=== PATIENT | male | born 1975 | race Caucasian/White ===

== ENCOUNTER → 2019-12-03 14:30 | Outpatient (BNVA) | payer MEDICAID, SELFPAY | PROVIDERS: Family Provider Family Medicine; PCP Family Medicine; Visit Provider Anesthesiology | DX: M51.36 Other intervertebral disc degeneration, lumbar region (principal); M79.651 Pain in right thigh; M79.652 Pain in left thigh; M79.7 Fibromyalgia; F17.210 Nicotine dependence, cigarettes, uncomplicated; Z79.891 Long term (current) use of opiate analgesic | CPT/HCPCS: 99214 ==

== ENCOUNTER 2020-01-01 11:50 | Outpatient (CLI) | payer MEDICAID, SELFPAY ==
--- NOTE | 2020-01-01 11:55 | XR_ITS ---
WS: [id number] XR chest 2V* [id number] REASON FOR EXAM: Chronic cough FINDINGS: Comparisons were made to August 22, 2015. The lung rose are well aerated. No pneumonia, pleural effusion, pulmonary edema, or mass effect. The heart and mediastinal interfaces are normal. The hilum and apices are normal. No osseous abnormalities. XR/XR chest 2V* [id number] IMPRESSION: Negative chest for active cardiopulmonary changes.
== END 2020-01-01 11:51 | disposition home or self-care (01) ==
LOC: RAD 11:53
PROVIDERS: Family Provider Family Medicine; PCP Family Medicine; Visit Provider Family Medicine
DX: R05 Cough (principal); F17.200 Nicotine dependence, unspecified, uncomplicated; R60.9 Edema, unspecified
CPT/HCPCS: 71046

== ENCOUNTER → 2020-01-29 13:39 | Outpatient (BNVA) | payer MEDICAID, SELFPAY | PROVIDERS: Family Provider Family Medicine; PCP Family Medicine; Visit Provider Nurse Practitioner | DX: M51.36 Other intervertebral disc degeneration, lumbar region (principal); M79.7 Fibromyalgia; F17.219 Nicotine dependence, cigarettes, with unspecified nicotine-induced disorders; Z79.891 Long term (current) use of opiate analgesic; Z71.6 Tobacco abuse counseling | CPT/HCPCS: 99213; 99214 ==

== ENCOUNTER → 2020-04-17 12:49 | Outpatient (BNVA) | payer MEDICAID, SELFPAY | PROVIDERS: Family Provider Family Medicine; PCP Family Medicine; Visit Provider Anesthesiology | DX: M51.36 Other intervertebral disc degeneration, lumbar region (principal); M54.9 Dorsalgia, unspecified; M79.7 Fibromyalgia; F17.219 Nicotine dependence, cigarettes, with unspecified nicotine-induced disorders; Z79.891 Long term (current) use of opiate analgesic | CPT/HCPCS: 99213; 99214 ==

== ENCOUNTER → 2020-06-16 13:01 | Outpatient (BNVA) | payer MEDICAID, SELFPAY | PROVIDERS: Family Provider Family Medicine; PCP Family Medicine; Visit Provider Anesthesiology | DX: M54.42 Lumbago with sciatica, left side (principal); M54.41 Lumbago with sciatica, right side; M51.36 Other intervertebral disc degeneration, lumbar region; M54.9 Dorsalgia, unspecified; M79.7 Fibromyalgia; F17.219 Nicotine dependence, cigarettes, with unspecified nicotine-induced disorders; Z79.891 Long term (current) use of opiate analgesic | CPT/HCPCS: 99213; 99214 ==

== ENCOUNTER → 2020-08-13 14:03 | Outpatient (BNVA) | payer MEDICAID, SELFPAY | PROVIDERS: Family Provider Family Medicine; PCP Family Medicine; Visit Provider Anesthesiology | DX: M54.41 Lumbago with sciatica, right side (principal); M54.42 Lumbago with sciatica, left side; M51.36 Other intervertebral disc degeneration, lumbar region; M79.7 Fibromyalgia; M54.9 Dorsalgia, unspecified; F17.219 Nicotine dependence, cigarettes, with unspecified nicotine-induced disorders; Z79.891 Long term (current) use of opiate analgesic | CPT/HCPCS: 99213; 99214 ==

== ENCOUNTER → 2020-10-13 12:58 | Outpatient (BNVA) | payer MEDICAID, SELFPAY | PROVIDERS: Family Provider Family Medicine; PCP Family Medicine; Visit Provider Anesthesiology | DX: M51.36 Other intervertebral disc degeneration, lumbar region (principal); M79.7 Fibromyalgia; M54.9 Dorsalgia, unspecified; F17.219 Nicotine dependence, cigarettes, with unspecified nicotine-induced disorders; Z79.891 Long term (current) use of opiate analgesic | CPT/HCPCS: 99213; 99214 ==

== ENCOUNTER → 2020-12-09 12:38 | Outpatient (BNVA) | payer MEDICAID, SELFPAY | PROVIDERS: Family Provider Family Medicine; PCP Family Medicine; Visit Provider Anesthesiology | DX: G89.29 Other chronic pain (principal); M51.36 Other intervertebral disc degeneration, lumbar region; M54.9 Dorsalgia, unspecified; M79.7 Fibromyalgia; M25.512 Pain in left shoulder; F17.219 Nicotine dependence, cigarettes, with unspecified nicotine-induced disorders; Z79.891 Long term (current) use of opiate analgesic | CPT/HCPCS: 99214 ==

== ENCOUNTER → 2021-02-11 12:44 | Outpatient (BNVA) | payer MEDICAID, SELFPAY | PROVIDERS: Family Provider Family Medicine; PCP Family Medicine; Visit Provider Anesthesiology | DX: G89.29 Other chronic pain (principal); M51.36 Other intervertebral disc degeneration, lumbar region; M79.7 Fibromyalgia; M54.9 Dorsalgia, unspecified; M54.2 Cervicalgia; M25.512 Pain in left shoulder; M25.511 Pain in right shoulder; F17.219 Nicotine dependence, cigarettes, with unspecified nicotine-induced disorders; Z79.891 Long term (current) use of opiate analgesic | CPT/HCPCS: 99214 ==

== ENCOUNTER → 2021-04-13 13:13 | Outpatient (BNVA) | payer MEDICAID, SELFPAY | PROVIDERS: Family Provider Family Medicine; PCP Family Medicine; Visit Provider Nurse Practitioner | DX: G89.29 Other chronic pain (principal); M51.36 Other intervertebral disc degeneration, lumbar region; M54.9 Dorsalgia, unspecified; M79.7 Fibromyalgia; M54.2 Cervicalgia; M25.512 Pain in left shoulder; F17.219 Nicotine dependence, cigarettes, with unspecified nicotine-induced disorders; Z79.891 Long term (current) use of opiate analgesic | CPT/HCPCS: 99213 ==

== ENCOUNTER → 2021-06-24 14:00 | Outpatient (BNVA) | payer MEDICAID, SELFPAY | PROVIDERS: Family Provider Family Medicine; PCP Family Medicine; Visit Provider Anesthesiology | DX: G89.29 Other chronic pain (principal); M51.36 Other intervertebral disc degeneration, lumbar region; M79.7 Fibromyalgia; M54.2 Cervicalgia; M25.511 Pain in right shoulder; M25.512 Pain in left shoulder; F17.219 Nicotine dependence, cigarettes, with unspecified nicotine-induced disorders; Z79.891 Long term (current) use of opiate analgesic | CPT/HCPCS: 99214 ==

== ENCOUNTER → 2021-08-27 13:01 | Outpatient (BNVA) | payer MEDICAID, SELFPAY | PROVIDERS: Family Provider Family Medicine; PCP Family Medicine; Visit Provider Anesthesiology | DX: G89.29 Other chronic pain (principal); M51.36 Other intervertebral disc degeneration, lumbar region; M54.2 Cervicalgia; M79.7 Fibromyalgia; F17.219 Nicotine dependence, cigarettes, with unspecified nicotine-induced disorders; Z79.891 Long term (current) use of opiate analgesic; Z71.6 Tobacco abuse counseling | CPT/HCPCS: 99214 ==

== ENCOUNTER → 2021-10-25 09:13 | Outpatient (BNVA) | payer MEDICAID, SELFPAY | PROVIDERS: Family Provider Family Medicine; PCP Family Medicine; Visit Provider Family Medicine | DX: B35.6 Tinea cruris (principal); G89.29 Other chronic pain; L30.9 Dermatitis, unspecified; M25.512 Pain in left shoulder; M51.36 Other intervertebral disc degeneration, lumbar region; M54.2 Cervicalgia; M79.7 Fibromyalgia; Z76.89 Persons encountering health services in other specified circumstances; Z79.891 Long term (current) use of opiate analgesic | CPT/HCPCS: 80053; 80061; 84153; 84443; 85025 ==

== ENCOUNTER 2024-09-18 12:03 | Outpatient (CLI) | payer MEDICAID, SELFPAY ==
--- NOTE | 2024-09-18 12:09 | US_ITS ---
WS: [id number] TESTICULAR ULTRASOUND HISTORY: SCROTAL MASS COMPARISON: None available. TECHNIQUE: Real-time and color Doppler imaging or utilized to perform a testicular ultrasound. Right testicle: 4.7 cm x 2.9 cm x 2.7 cm. Normal size and echogenicity. No mass or torsion. Normal color Doppler is present throughout. Systolic and diastolic velocities are both present. No significant hydrocele. Right epididymis: Normal epididymis with no increased vascularity. Left testicle: Prior orchiectomy. There is a prosthetic replacement in the scrotal sac. There is severe diffuse scrotal wall edema and thickening. There is a large amount of air within the scrotal wall. This air measures at least 3.3 x 3.3 cm and e xtends posterior towards the perineum. There is is not a well-defined collection but is infiltrating through the soft tissues with increased vascularity. US/US scrotum [id number] IMPRESSION: 1. Large amount of air infiltrating through the scrotal wall. The exact dimens ion is difficult to determine due to the shadowing. 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 2. Prosthetic LEFT testicle. Prior orchiectomy. Notified Mahad Silvestre MD at 09/18/2024 1:48 PM. I personally discussed the findings with the patient and directed him to the em ergency department. Dr. Alberto was contacted with the information in this repor t.
== END 2024-09-18 12:04 | disposition home or self-care (01) ==
LOC: RAD 12:05
PROVIDERS: PCP Family Medicine; Visit Provider Family Medicine
DX: N49.2 Inflammatory disorders of scrotum (principal); Z96.698 Presence of other orthopedic joint implants; Z90.79 Acquired absence of other genital organ(s)
CPT/HCPCS: 76870

== ENCOUNTER 2024-09-18 13:55 | Emergency (ER) | payer MEDICAID, SELFPAY ==
[2024-09-18 14:03] VITALS: BP 157/89; PULSE 116; RESP 18; TEMP 37.1; O2SAT 96; BMI 30.5
--- NOTE | 2024-09-18 14:05 | PC.PHAR ---
Medication list faxed from [facility]-will follow up with pt as to when last taken
--- NOTE | 2024-09-18 14:09 | CTR_ITS ---
PROCEDURE INFORMATION: Exam: CT Abdomen And Pelvis With Contrast Exam date and time: 09/18/2024 2:49 PM Age: 48 years old Clinical indication: Pain; Other: Scrotal; Additional info: Scrotal pain/concern for nec fasc TECHNIQUE: Imaging protocol: Computed tomography of the abdomen and pelvis with contrast. Radiation optimization: All CT scans at this facility use at least one of these dose optimization techniques: automated exposure control; mA and/or kV adjustment per patient size (includes targeted exams where dose is matched to clinical indication); or iterative reconstruction. Contrast material: OMNI 350; Contrast volume: 100 ml; Contrast route: INTRAVENOUS (IV); COMPARISON: US scrotum [id number] 09/18/2024 1:19 PM RADIATION DOSE METRICS: Total DLP (mGy-cm): 1066.33 FINDINGS: Lungs: Lung bases are clear. No pleural effusion. Liver: Normal. No mass. Gallbladder and biliary ducts: Normal. No calcified stones. No ductal dilation. Pancreas: Normal. No ductal dilation. Spleen: Normal. No splenomegaly. Adrenal glands: Normal. No mass. Kidneys and ureters: Normal. No hydronephrosis. Stomach and bowel: Unremarkable. No obstruction. No mucosal thickening. Appendix: No evidence of appendicitis. Intraperitoneal space: Unremarkable. No free air. No significant fluid collection. Vasculature: Unremarkable. No abdominal aortic aneurysm. Lymph nodes: Reactive adenopathy is noted in both inguinal regions. Urinary bladder: Unremarkable as visualized. Reproductive: There is severe edema involving the scrotum and a collection of soft tissue air measuring 3 cm in diameter is noted within the base of the scrotum. Bones/joints: Unremarkable. No acute fracture. Soft tissues: Unremarkable. CT/CT abdomen pelvis w con* [id number] IMPRESSION: Severe scrotal edema with soft tissue air highly suspicious for necrotizing fasciitis
--- NOTE | 2024-09-18 14:33 | ED_ITS ---
Documented by User: DOMINIQUE Kaufman 09/18/24 15:56 HPI - Male Genitourinary 2 General: Chief complaint: Urogenital-Male Stated complaint: [place] from [place] - infection Time Seen by Provider: 09/18/24 13:59 Source: patient Mode of arrival: ambulatory Limitations: no limitations History of Present Illness: Patient is a 48-year-old male with recently diagnosed diabetes who presents to the emergency department for scrotal pain for the past day or so. On Monday he was diagnosed with diabetes, saw primary care at [facility] and labs showed elevated blood glucose greater than 300 and an A1c of 14. He was started on metformin, states he has not picked this up yet and has not started medications. He takes Percocet for pain. He notes that the pain is to the right scrotum and is associated with swelling. 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 Primary care had sent him to ultrasound here at the hospital, and subsequently referred him to the ER because they were concerned that it looked infected. He is denying any fever, chills, chest pain, nausea vomiting diarrhea, or other symptoms. He is afebrile at this time, but heart rate is elevated at 116. No other pertinent past medical history or symptoms to report at this time, however he is noting the pain is severe with palpation. He is also reporting the pain extends to the bilateral lower abdominal quadrants. MD Complaint: testicle pain and testicle swelling Onset (ago): day(s) Duration: constant Location: right testicle Context: other (Recently diagnosed with diabetes) Associated symptoms: Deny dysuria, hematuria, nausea or vomiting Related Data Home Medications Medication Instructions Recorded Confirmed ascorbic acid (vitamin C) 500 mg 500 mg PO DAILY 04/13/21 09/18/24 capsule cholecalciferol (vitamin D3) 125 125 mcg PO DAILY 04/13/21 09/18/24 mcg (5,000 unit) capsule aspirin 81 mg tablet,delayed 81 mg PO DAILY 09/18/24 09/18/24 release (Adult Low Dose Aspirin) atorvastatin 20 mg tablet 20 mg PO BEDTIME 09/18/24 09/18/24 dulaglutide 0.75 mg/0.5 mL 0.75 mg SUBCUT Q7D 09/18/24 09/18/24 subcutaneous pen injector ([facility]) lisinopril 5 mg tablet 5 mg PO DAILY 09/18/24 09/18/24 metformin 500 mg tablet,extended 500 mg PO BID 09/18/24 09/18/24 release 24 hr multivitamin 1 tab PO QAM 09/18/24 09/18/24 oxycodone-acetaminophen 7.5 mg-325 1 tab PO Q4H PRN pain 09/18/24 09/18/24 mg tablet tramadol 50 mg tablet 50 mg PO Q4H PRN pain 09/18/24 09/18/24 Allergies Allergy/AdvReac Type Severity Reaction Status Date / Time adhesive tape Allergy Unknown Verified 09/18/24 14:05 celecoxib [From Celebrex] Allergy Unknown Verified 09/18/24 14:05 doxycycline Allergy Unknown Verified 09/18/24 14:05 ibuprofen Allergy Unknown Verified 09/18/24 14:05 levofloxacin [From Levaquin] Allergy Unknown Verified 09/18/24 14:05 methadone Allergy ALGY-Anaphy Verified 09/18/24 14:05 laxis milnacipran [From Savella] Allergy Unknown Verified 09/18/24 14:05 morphine Allergy Unknown Verified 09/18/24 14:05 Penicillins Allergy unknown Verified 09/18/24 14:05 Sulfa (Sulfonamide Allergy ALGY-Rash Verified 09/18/24 14:05 Antibiotics) terbinafine [From Lamisil] Allergy Unknown Verified 09/18/24 14:05 trazodone Allergy Unknown Verified 09/18/24 14:05 Review of Systems 2 General: Reports: 10 or more systems reviewed and unremarkable except in HPI and below Const: Denies: fever(s), chills, change in appetite, change in weight or diaphoresis ENMT: Denies: throat pain or hoarseness Card: Denies: chest pain, palpitations or lightheadedness Resp: Denies: dyspnea, productive cough or wheezing GI: Reports: abdominal pain; Denies: nausea, vomiting, diarrhea, constipation, bloating, change in stool character or hematochezia : Reports: testicular pain and scrotal swelling; Denies: flank pain, difficulty urinating, dysuria, urinary frequency, urinary urgency or hematuria Musc: Denies: neck pain or back pain Skin/Breast: Denies: rash or new lesions Neuro: Denies: headache(s) or dizziness PFSH ED 2 PFSH: Medical History Chronic neck pain Chronic left shoulder pain Anxiety and depression Opioid contract exists Encounter for long-term use of opiate analgesic Fibromyalgia DDD (degenerative disc disease), lumbar Pain of paraspinal muscle Surgical History Status post laser lithotripsy of ureteral calculus Social History Smoking and tobacco/nicotine status: current every day tobacco/nicotine user cigarettes Packs smoked per day: 1.5 Alcohol intake: never Substance/Drug Use: never Physical Exam 2 Const: COMMON NORMALS: no acute distress, average body habitus, patient oriented x3, no limitations, healthy appearing, alert and well nourished G ENERAL APPEARANCE: cooperative and comfortable ORIENTATION/CONSCIOUSNESS: Yes awake HENMT: COMMON NORMALS: normocephalic, atraumatic, hearing grossly normal bilaterally, external ears normal, Normal external nose present, Normal nasal mucous membranes and turbinates present and moist oral mucous membranes HEAD & SCALP: normocephalic and atraumatic NOSE: Normal external nose present and Normal nasal mucous membranes and turbinates present EXTERNAL EAR: Yes external ears normal Eye: COMMON NORMALS: Equal, round and reactive pupils present, EOMs intact bilaterally, conjunctivae normal and normal visual rose by confrontation C ONJUNCTIVA: Yes conjunctivae normal PUPIL: Yes Equal, round and reactive pupils present Neck/C-Spine: COMMON NORMALS: full ROM, supple, no meningeal signs and no JVD Resp: COMMON NORMALS: normal respiratory effort, No retractions, No use of accessory muscles and clear to auscultation bilaterally AUSCULTATION: clear to auscultation bilaterally, no crackles, no rales, no rhonchi and no wheezes Cardio: COMMON NORMALS: no JVD, regular rate, regular rhythm, S1 normal heart sound present, S2 normal heart sound present, No gallops present (Cardio), No clicks present (Cardio), No murmurs present (Cardio), No rub (Cardio) and Peripheral pulses 2+ throughout RATE: regular rate RHYTHM: regular rhythm HEART SOUNDS: S1 normal heart sound present and S2 normal heart sound present PERIPHERAL PULSES: Peripheral pulses 2+ throughout GI: COMMON NORMALS: Normal to inspection, nondistended, normoactive bowel sounds present, Soft to palpation, No hepatosplenomegaly present and no masses AUSCULTATION: Yes normoactive bowel sounds PALPATION: Yes Soft to palpation, No Guarding due to palpation present (GI), No Rigid due to palpation and Yes No hepatosplenomegaly present RECTAL EXAM: Yes deferred OTHER: Tenderness to palpation of the bilateral lower quadrants, left worse than right : OTHER: Scrotum is swollen and erythematous, there is severe reproducible tenderness to palpation of the right testicle. No skin breakdown, no foul odor detected at this time. Penis normal appearing. Perineum appears normal Extremity: COMMON NORMALS: normal to inspection and full ROM Neuro: COMMON NORMALS: patient oriented x3, moves all extremities, no focal motor deficits and no sensory deficits noted SENSORIUM/ORIENTATION: Yes alert MENINGEAL SIGNS: Yes no meningeal signs Psych: COMMON NORMALS: mental status grossly normal, cooperative and speech normal SPEECH: Yes normal speech Skin: COMMON NORMALS: no rashes or lesions noted GENERAL SKIN EXAM: no rashes or lesions noted Course 2 Vital Signs: Vital signs: Vital Signs Temperature 98.7 F 09/18/24 14:03 Pulse Rate 116 H 09/18/24 14:03 Respiratory Rate 18 09/18/24 14:03 Blood Pressure 157/89 09/18/24 14:03 Pulse Oximetry 96 09/18/24 14:03 Oxygen Delivery Me thod Room Air 09/18/24 14:03 [facility] - Male Medical Decision Making Patient was sent to the ER from ultrasound with concerns of necrotizing fasciitis as he was recently diagnosed with diabetes on Monday with primary care. He has not started any diabetic medications yet as he has not picked them up, states his A1c was 14 and his sugar at that time was recorded to be greater than 300. Here in the emergency department, exam found his scrotum to be erythematous and swollen, with moderate to severe tenderness to palpation primarily to the right aspect. However there were no concerning overlying skin changes or foul odor concerning for necrotizing fasciitis. With labs he did have an elevated white count and blood glucose was measuring 600 and was started on IV push of insulin. He was also started on vancomycin after lactic found to be elevated, elevated white count, and CT findings concerning for necrotizing fasciitis with the scrotal edema and soft tissue air present. Patient has remained comfortable throughout ED course, he takes Percocet for pain and took this upon arrival. His pulse had been slightly elevated, however he was afebrile here and had no symptoms to report that were concerning for any systemic signs of infection. Care of patient at this time was transferred to Dr. Alberto, who was consulting [facility] urology for emergent transfer. Lab Data 09/18/24 14:20 09/18/24 14:20 Radiology Impressions Abdomen/Pelvis CT 09/18/24 14:09 IMPRESSION: Severe scrotal edema with soft tissue air highly suspicious for necrotizing fasciitis Laboratory Results WBC 19.37 10^3/uL (3.29-11.43) H 09/18/24 14:20 RBC 5.19 10^6/uL (3.85-5.65) 09/18/24 14:20 Hgb 16.30 g/dL (11.27-16.99) 09/18/24 14:20 Hct 45.1 % (37-53) 09/18/24 14:20 MCV 86.9 fl (82-101) 09/18/24 14:20 MCH 31.4 pg (27-33) 09/18/24 14:20 MCHC 36.1 g/dL (30-55) 09/18/24 14:20 RDW 11.6 % (12.1-15.1) L 09/18/24 14:20 Plt Count 158 10^3/cmm (157-399) 09/18/24 14:20 MPV 12.2 fL (7.4-10.4) H 09/18/24 14:20 Neut % (Auto) 84.0 % 09/18/24 14:20 Lymph % (Auto) 8.7 % 09/18/24 14:20 [place] % (Auto) 6.3 % 09/18/24 14:20 Eos % (Auto) 0.2 % 09/18/24 14:20 Baso % (Auto) 0.3 % 09/18/24 14:20 Neut # (Auto) 16.27 10^3/uL (1.8-7.7) H 09/18/24 14:20 Lymph # (Auto) 1.7 10^3/uL (0.8-4.8) 09/18/24 14:20 [place] # (Auto) 1.2 10^3/uL (0.2-0.9) H 09/18/24 14:20 Eos # (Auto) 0.0 10^3/uL (0.0-0.8) 09/18/24 14:20 Baso # (Auto) 0.1 10^3/uL (0.0-0.1) 09/18/24 14:20 Nucleated RBC % (auto) 0 % 09/18/24 14:20 Nucleated RBCs # 0.0 /100WBC 09/18/24 14:20 Sodium 133 mmol/L (136-145) L 09/18/24 14:20 Potassium 3.9 mmol/L (3.5-5.1) 09/18/24 14:20 Chloride 96 mmol/L (98-107) L 09/18/24 14:20 Carbon Dioxide 21 mmol/L (22-29) L 09/18/24 14:20 Anion Gap 19.9 (5-19) H 09/18/24 14:20 BUN 5 mg/dL (6-20) L 09/18/24 14:20 Creatinine 0.6 mg/dL (0.7-1.2) L 09/18/24 14:20 GFR Calculation 143.2 mL/min (90-130) H 09/18/24 14:20 Glucose 564 mg/dL (65-115) H* 09/18/24 14:20 POC Glucose 506 mg/dL (70-110) H* 09/18/24 14:36 Calculated Osmolality 299 mOsm/kg (285-295) H 09/18/24 14:20 Lactic Acid 2.5 mmol/L (0.5-2.2) H 09/18/24 14:20 Calcium 9.1 mg/dL (8.5-10.5) 09/18/24 14:20 Total Bilirubin 1.3 mg/dL (0.15-1.2) H 09/18/24 14:20 AST 10 U/L (0-40) 09/18/24 14:20 ALT 11 U/L (0-41) 09/18/24 14:20 Alkaline Phosphatase 199 U/L (40-130) H 09/18/24 14:20 Total Protein 7.1 g/dL (6.6-8.7) 09/18/24 14:20 Albumin 4.2 g/dL (3.5-5.2) 09/18/24 14:20 Globulin 2.9 g/dL (1.3-4.6) 09/18/24 14:20 Urine Color Yellow (Yellow) 09/18/24 14:20 Urine Appearance Clear (CLEAR) 09/18/24 14:20 Urine pH 5.0 (5-7) 09/18/24 14:20 Ur Specific [place] 1.040 (1.005-1.030) H 09/18/24 14:20 Urine Protein Negative (Negative) 09/18/24 14:20 Urine Glucose (UA) 3+ (Normal) H 09/18/24 14:20 Urine Ketones 1+ (Negative) H 09/18/24 14:20 Urine Blood Negative (Negative) 09/18/24 14:20 Urine Nitrate Negative (Negative) 09/18/24 14:20 Urine Bilirubin Negative (Negative) 09/18/24 14:20 Urine Urobilinogen 0.2 mg/dL (Negative) 09/18/24 14:20 Ur Leukocyte Esterase Negative (Negative) 09/18/24 14:20 Urine RBC 0-2 /hpf (0-2) 09/18/24 14:20 Urine WBC 0-5 /hpf (0-5) 09/18/24 14:20 Ur Squamous Epith Cells 0-5 /hpf (0-5) 09/18/24 14:20 Amorphous Sediment Not Reportable 09/18/24 14:20 Urine Bacteria None seen /hpf (NONE) 09/18/24 14:20 Hyaline Casts 0-4 /lpf H 09/18/24 14:20 All radiology interpretation(s) finalized by discharge Discharge Plan Discharge Patient Disposition: Xfer Short-Term Hosp Clinical Impression: Necrotizing fasciitis Condition: Stable Prescriptions: No Action ascorbic acid (vitamin C) 500 mg capsule 500 mg PO DAILY cholecalciferol (vitamin D3) 125 mcg (5,000 unit) capsule 125 mcg PO DAILY multivitamin Tablet 1 tab PO QAM atorvastatin 20 mg tablet 20 mg PO BEDTIME aspirin [Adult Low Dose Aspirin] 81 mg tablet,delayed release (DR/EC) 81 mg PO DAILY lisinopril 5 mg tablet 5 mg PO DAILY metformin 500 mg tablet extended release 24 hr 500 mg PO BID Trulicity 0.75 mg/0.5 mL pen injector 0.75 mg SUBCUT Q7D tramadol 50 mg tablet 50 mg PO Q4H MDD 4 per day PRN (Reason: pain) oxycodone-acetaminophen 7.5-325 mg tablet 1 tab PO Q4H MDD 4 per day PRN (Reason: pain) Referrals: Mahad Silvestre MD [Primary Care Provider] - Coding Level of Care Code ED Can Tender for Chg Fwd Documented by User: Steph Alberto MD 09/18/24 15:59 HPI - Male Genitourinary 2 General: Chief complaint: Urogenital-Male Stated complaint: [place] - infection Time Seen by Provider: 09/18/24 13:59 Related Data Home Medications Medication Instructions Recorded Confirmed ascorbic acid (vitamin C) 500 mg 500 mg PO DAILY 04/13/21 09/18/24 capsule cholecalciferol (vitamin D3) 125 125 mcg PO DAILY 04/13/21 09/18/24 mcg (5,000 unit) capsule aspirin 81 mg tablet,delayed 81 mg PO DAILY 09/18/24 09/18/24 release (Adult Low Dose Aspirin) atorvastatin 20 mg tablet 20 mg PO BEDTIME 09/18/24 09/18/24 dulaglutide 0.75 mg/0.5 mL 0.75 mg SUBCUT Q7D 09/18/24 09/18/24 subcutaneous pen injector (Trulicity) lisinopril 5 mg tablet 5 mg PO DAILY 09/18/24 09/18/24 metformin 500 mg tablet,extended 500 mg PO BID 09/18/24 09/18/24 release 24 hr multivitamin 1 tab PO QAM 09/18/24 09/18/24 oxycodone-acetaminophen 7.5 mg-325 1 tab PO Q4H PRN pain 09/18/24 09/18/24 mg tablet tramadol 50 mg tablet 50 mg PO Q4H PRN pain 09/18/24 09/18/24 Allergies Allergy/AdvReac Type Severity Reaction Status Date / Time adhesive tape Allergy Unknown Verified 09/18/24 14:05 celecoxib [From Celebrex] Allergy Unknown Verified 09/18/24 14:05 doxycycline Allergy Unknown Verified 09/18/24 14:05 ibuprofen Allergy Unknown Verified 09/18/24 14:05 levofloxacin [From Levaquin] Allergy Unknown Verified 09/18/24 14:05 methadone Allergy ALGY-Anaphy Verified 09/18/24 14:05 laxis milnacipran [From Savella] Allergy Unknown Verified 09/18/24 14:05 morphine Allergy Unknown Verified 09/18/24 14:05 Penicillins Allergy unknown Verified 09/18/24 14:05 Sulfa (Sulfonamide Allergy ALGY-Rash Verified 09/18/24 14:05 Antibiotics) terbinafine [From Lamisil] Allergy Unknown Verified 09/18/24 14:05 trazodone Allergy Unknown Verified 09/18/24 14:05 PFSH ED 2 PFSH: Medical History Chronic neck pain Chronic left shoulder pain Anxiety and depression Opioid contract exists Encounter for long-term use of opiate analgesic Fibromyalgia DDD (degenerative disc disease), lumbar Pain of paraspinal muscle Surgical History Status post laser lithotripsy of ureteral calculus Social History Smoking and tobacco/nicotine status: current every day tobacco/nicotine user cigarettes Packs smoked per day: 1.5 Alcohol intake: never Substance/Drug Use: never Course 2 Vital Signs: Vital signs: Vital Signs Temperature 98.7 F 09/18/24 14:03 Pulse Rate 116 H 09/18/24 14:03 Respiratory Rate 18 09/18/24 14:03 Blood Pressure 157/89 09/18/24 14:03 Pulse Oximetry 96 09/18/24 14:03 Oxygen Delivery Me thod Room Air 09/18/24 14:03 MDM - Male Medical Decision Making Patient was sent to the ER from ultrasound with concerns of necrotizing fasciitis as he was recently diagnosed with diabetes on Monday with primary care. He has not started any diabetic medications yet as he has not picked them up, states his A1c was 14 and his sugar at that time was recorded to be greater than 300. Here in the emergency department, exam found his scrotum to be erythematous and swollen, with moderate to severe tenderness to palpation primarily to the right aspect. However there were no concerning overlying skin changes or foul odor concerning for necrotizing fasciitis. With labs he did have an elevated white count and blood glucose was measuring 600 and was started on IV push of insulin. He was also started on vancomycin after lactic found to be elevated, elevated white count, and CT findings concerning for necrotizing fasciitis with the scrotal edema and soft tissue air present. Patient has remained comfortable throughout ED course, he takes Percocet for pain and took this upon arrival. His pulse had been slightly elevated, however he was afebrile here and had no symptoms to report that were concerning for any systemic signs of infection. Care of patient at this time was transferred to Dr. Alberto, who was consulting [facility] urology for emergent transfer. Patient presents here with concerns of excising fasciitis of the scrotum did start antibiotics spoke to urology at [facility] will transfer their ER to ER for further evaluation. Will transfer due to urology availability Lab Data 09/18/24 14:20 09/18/24 14:20 Radiology Impressions Abdomen/Pelvis CT 09/18/24 14:09 IMPRESSION: Severe scrotal edema with soft tissue air highly suspicious for necrotizing fasciitis Laboratory Results WBC 19.37 10^3/uL (3.29-11.43) H 09/18/24 14:20 RBC 5.19 10^6/uL (3.85-5.65) 09/18/24 14:20 Hgb 16.30 g/dL (11.27-16.99) 09/18/24 14:20 Hct 45.1 % (37-53) 09/18/24 14:20 MCV 86.9 fl (82-101) 09/18/24 14:20 MCH 31.4 pg (27-33) 09/18/24 14:20 MCHC 36.1 g/dL (30-55) 09/18/24 14:20 RDW 11.6 % (12.1-15.1) L 09/18/24 14:20 Plt Count 158 10^3/cmm (157-399) 09/18/24 14:20 MPV 12.2 fL (7.4-10.4) H 09/18/24 14:20 Neut % (Auto) 84.0 % 09/18/24 14:20 Lymph % (Auto) 8.7 % 09/18/24 14:20 [place]ulloch % (Auto) 6.3 % 09/18/24 14:20 Eos % (Auto) 0.2 % 09/18/24 14:20 Baso % (Auto) 0.3 % 09/18/24 14:20 Neut # (Auto) 16.27 10^3/uL (1.8-7.7) H 09/18/24 14:20 Lymph # (Auto) 1.7 10^3/uL (0.8-4.8) 09/18/24 14:20 [place]och # (Auto) 1.2 10^3/uL (0.2-0.9) H 09/18/24 14:20 Eos # (Auto) 0.0 10^3/uL (0.0-0.8) 09/18/24 14:20 Baso # (Auto) 0.1 10^3/uL (0.0-0.1) 09/18/24 14:20 Nucleated RBC % (auto) 0 % 09/18/24 14:20 Nucleated RBCs # 0.0 /100WBC 09/18/24 14:20 Sodium 133 mmol/L (136-145) L 09/18/24 14:20 Potassium 3.9 mmol/L (3.5-5.1) 09/18/24 14:20 Chloride 96 mmol/L (98-107) L 09/18/24 14:20 Carbon Dioxide 21 mmol/L (22-29) L 09/18/24 14:20 Anion Gap 19.9 (5-19) H 09/18/24 14:20 BUN 5 mg/dL (6-20) L 09/18/24 14:20 Creatinine 0.6 mg/dL (0.7-1.2) L 09/18/24 14:20 GFR Calculation 143.2 mL/min (90-130) H 09/18/24 14:20 Glucose 564 mg/dL (65-115) H* 09/18/24 14:20 POC Glucose 506 mg/dL (70-110) H* 09/18/24 14:36 Calculated Osmolality 299 mOsm/kg (285-295) H 09/18/24 14:20 Lactic Acid 2.5 mmol/L (0.5-2.2) H 09/18/24 14:20 Calcium 9.1 mg/dL (8.5-10.5) 09/18/24 14:20 Total Bilirubin 1.3 mg/dL (0.15-1.2) H 09/18/24 14:20 AST 10 U/L (0-40) 09/18/24 14:20 ALT 11 U/L (0-41) 09/18/24 14:20 Alkaline Phosphatase 199 U/L (40-130) H 09/18/24 14:20 Total Protein 7.1 g/dL (6.6-8.7) 09/18/24 14:20 Albumin 4.2 g/dL (3.5-5.2) 09/18/24 14:20 Globulin 2.9 g/dL (1.3-4.6) 09/18/24 14:20 Urine Color Yellow (Yellow) 09/18/24 14:20 Urine Appearance Clear (CLEAR) 09/18/24 14:20 Urine pH 5.0 (5-7) 09/18/24 14:20 Ur Specific [place] 1.040 (1.005-1.030) H 09/18/24 14:20 Urine Protein Negative (Negative) 09/18/24 14:20 Urine Glucose (UA) 3+ (Normal) H 09/18/24 14:20 Urine Ketones 1+ (Negative) H 09/18/24 14:20 Urine Blood Negative (Negative) 09/18/24 14:20 Urine Nitrate Negative (Negative) 09/18/24 14:20 Urine Bilirubin Negative (Negative) 09/18/24 14:20 Urine Urobilinogen 0.2 mg/dL (Negative) 09/18/24 14:20 Ur Leukocyte Esterase Negative (Negative) 09/18/24 14:20 Urine RBC 0-2 /hpf (0-2) 09/18/24 14:20 Urine WBC 0-5 /hpf (0-5) 09/18/24 14:20 Ur Squamous Epith Cells 0-5 /hpf (0-5) 09/18/24 14:20 Amorphous Sediment Not Reportable 09/18/24 14:20 Urine Bacteria None seen /hpf (NONE) 09/18/24 14:20 Hyaline Casts 0-4 /lpf H 09/18/24 14:20 Discharge Plan Discharge Patient Disposition: Xfer Short-Term Hosp Clinical Impression: Necrotizing fasciitis Condition: Stable Prescriptions: No Action ascorbic acid (vitamin C) 500 mg capsule 500 mg PO DAILY cholecalciferol (vitamin D3) 125 mcg (5,000 unit) capsule 125 mcg PO DAILY multivitamin Tablet 1 tab PO QAM atorvastatin 20 mg tablet 20 mg PO BEDTIME aspirin [Adult Low Dose Aspirin] 81 mg tablet,delayed release (DR/EC) 81 mg PO DAILY lisinopril 5 mg tablet 5 mg PO DAILY metformin 500 mg tablet extended release 24 hr 500 mg PO BID Trulicity 0.75 mg/0.5 mL pen injector 0.75 mg SUBCUT Q7D tramadol 50 mg tablet 50 mg PO Q4H MDD 4 per day PRN (Reason: pain) oxycodone-acetaminophen 7.5-325 mg tablet 1 tab PO Q4H MDD 4 per day PRN (Reason: pain) Referrals: Mahad Silvestre MD [Primary Care Provider] - Coding Level of Care Code ED Can Tender for Ludwig Waters
[2024-09-18 14:41] LABS: Glucose Point of Care 506 mg/dL (70-110)
[2024-09-18 14:45] LABS: Basophils # 0.1 10^3/uL (0.0-0.1); Basophils % 0.3 %; Eosinophils % 0.2 %; Hematocrit 45.1 % (37-53); Lymphocytes # 1.7 10^3/uL (0.8-4.8); Lymphocytes % 8.7 %; Mean Corpuscular HGB Conc 36.1 g/dL (30-55); Mean Corpuscular Hemoglobin 31.4 pg (27-33); Mean Corpuscular Volume 86.9 fl (82-101); Mean Platelet Volume 12.2 fL (7.4-10.4); Monocytes # 1.2 10^3/uL (0.2-0.9); Monocytes % 6.3 %; Neutrophils # 16.27 10^3/uL (1.8-7.7); Nucleated Red Blood Cells % 0 %; Platelet Count 158 10^3/cmm (157-399); Red Blood Count 5.19 10^6/uL (3.85-5.65); Red Cell Distribution Width 11.6 % (12.1-15.1); White Blood Count 19.37 10^3/uL (3.29-11.43)
[2024-09-18 14:48] LABS: Bilirubin Urine Negative (Negative); Blood Urine Negative (Negative); Glucose Urine UA 3+ (Normal); Ketones Urine 1+ (Negative); Leukocyte Esterase Urine Negative (Negative); Nitrate Urine Negative (Negative); Protein Urine Negative (Negative); Urine Appearance Clear (CLEAR); Urine Color Yellow (Yellow); Urobilinogen Urine 0.2 mg/dL (Negative)
[2024-09-18 14:54] LABS: Add Urine Microscopic? YES; Bacteria Urine None Seen /hpf; Hyaline Casts Urine 0-4 /lpf; RBC Urine 0-2 /hpf (0-2); Squamous Epithelial Cell Urine 0-5 /hpf (0-5); WBC Urine 0-5 /hpf (0-5)
[2024-09-18] MEDS: iohexol 350 mg/mL 500 mL Btl (per mL) IV (14:55)
[2024-09-18 15:00] VITALS: PULSE 104; O2SAT 93
[2024-09-18 15:12] LABS: Alanine Aminotransferase 11 U/L (0-41); Albumin Level 4.2 g/dL (3.5-5.2); Alkaline Phosphatase 199 U/L (40-130); Anion Gap 19.9 (5-19); Aspartate Amino Transferase 10 U/L (0-40); Blood Urea Nitrogen 5 mg/dL (6-20); Calcium 9.1 mg/dL (8.5-10.5); Carbon Dioxide 21 mmol/L (22-29); Chloride 96 mmol/L (98-107); Creatinine Clr Calc Pharmacy 184.0711; Globulin 2.9 g/dL (1.3-4.6); Glomerular Filtration Rate 143.2 mL/min (90-130); Osmolality Calculated 299 mOsm/kg (285-295); Potassium 3.9 mmol/L (3.5-5.1); Sodium 133 mmol/L (136-145); Total Bilirubin 1.3 mg/dL (0.15-1.2); Total Protein 7.1 g/dL (6.6-8.7)
[2024-09-18 15:13] LABS: Glucose 564 mg/dL (65-115); Lactic Sepsis W/Reflex 2.5 mmol/L (0.5-2.2)
[2024-09-18] MEDS: insulin regular-human 100 units/1 mL 15 UNIT IVP (15:16)
[2024-09-18 15:35] VITALS: BP 125/86; PULSE 114; O2SAT 91
[2024-09-18] MEDS: VANCOMYCIN ADD-Vantage 1,000 MG in 0.9% NaCl ADD-Vantage 250 ML 250 MG IV (15:56)
[2024-09-18 16:04] LABS: Glucose Point of Care 375 mg/dL (70-110)
--- NOTE | 2024-09-18 16:23 | PC.NURSE ---
Pt being air evac to [facility] ER to ER transfer. Pt report called to Kay Bustamante RN at 1615.
[2024-09-18 16:27] LABS: Reflex Lactate Order REFLEX LACTIC ORDERD
[2024-09-18 16:56] VITALS: BP 125/85; PULSE 113; O2SAT 91
== END 2024-09-18 16:40 ==
PROVIDERS: Physician Assistant; Emergency Provider Emergency Medicine; PCP Family Medicine
DX: M72.6 Necrotizing fasciitis (principal); Z79.82 Long term (current) use of aspirin; Z79.84 Long term (current) use of oral hypoglycemic drugs; Z79.85 Long-term (current) use of injectable non-insulin antidiabetic drugs; F17.210 Nicotine dependence, cigarettes, uncomplicated
CPT/HCPCS: 36415; 36416; 74177; 80053; 81001; 82962; 83605; 85025; 87040; 96374; 96375; 99285; J1815; J3370; J7050

== ENCOUNTER 2024-10-31 08:50 | Emergency (ER) | payer MEDICAID, SELFPAY ==
[2024-10-31 09:12] VITALS: BP 135/75; PULSE 100; TEMP 36.6; O2SAT 96; BMI 32.0
--- NOTE | 2024-10-31 10:24 | US_ITS ---
WS: [id number] TESTICULAR ULTRASOUND HISTORY: swelling pain, hx of testicle infection COMPARISON: 09/18/2024 CT and ultrasound TECHNIQUE: Real-time and color Doppler imaging or utilized to perform a testicular ultrasound. Right testicle: 4.4 cm x 2.7 cm x 3.3 cm. Heterogeneous testicle with striations throughout. No mass identified. Normal vascularity. Normal color Doppler is present throughout. Systolic and diastolic velocities are both present. No significant hydrocele. Right epididymis: Normal epididymis with no increased vascularity. Left testicle: Prior LEFT orchiectomy. Prosthetic replacement in the scrotal sac. No significant hydrocele identified. Marked scrotal wall thickening on the RIGHT. There is mild increased vascularity but no fluid collect ion. Scrotal wall measures 9 mm. US/US scrotum 12101 IMPRESSION: 1. Mild heterogeneity throughout the RIGHT testicle but no mass. Heterogeneous probably due to prior episodes of infection. Normal vascularity. 2. Prior LEFT orchiectomy with prosthetic testicle replacement. 3. Marked RIGHT scrotal wall thickening but no abscess. Mild increased vascula rity.
--- NOTE | 2024-10-31 10:57 | W.ED.MALEGU ---
HPI - Male Genitourinary General: Chief complaint: Urogenital-Male Stated complaint: abd problems Time Seen by Provider: 10/31/24 10:55 History of Present Illness: 49-year-old male poorly controlled diabetic with a history of necrotizing fasciitis of the scrotum diagnosed on 09/18 status post admission and treatment at [facility]. Patient has a prosthetic left testicle. 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 It has come and gone for the last 4 years. He can feel it again. He does not have any systemic symptoms. Associated symptoms: Deny dysuria, nausea or vomiting Related Data Home Medications Medication Instructions Recorded Confirmed ascorbic acid (vitamin C) 500 mg 500 mg PO DAILY 04/13/21 10/31/24 capsule cholecalciferol (vitamin D3) 125 125 mcg PO DAILY 04/13/21 10/31/24 mcg (5,000 unit) capsule aspirin 81 mg tablet,delayed 81 mg PO DAILY 09/18/24 10/31/24 release (Adult Low Dose Aspirin) atorvastatin 20 mg tablet 20 mg PO BEDTIME 09/18/24 10/31/24 dulaglutide 0.75 mg/0.5 mL 0.75 mg SUBCUT Q7D 09/18/24 10/31/24 subcutaneous pen injector (Trulicity) lisinopril 5 mg tablet 5 mg PO DAILY 09/18/24 10/31/24 multivitamin 1 tab PO QAM 09/18/24 10/31/24 oxycodone-acetaminophen 7.5 mg-325 1 tab PO Q4H PRN pain 09/18/24 10/31/24 mg tablet tramadol 50 mg tablet 50 mg PO Q4H PRN pain 09/18/24 10/31/24 Previous Rx's Medication Instructions Recorded clindamycin HCl 150 mg capsule 150 mg PO Q8H 7 days #21 caps 10/31/24 (Cleocin HCl) empagliflozin 10 mg tablet 10 mg PO DAILY #30 tabs 10/31/24 lactobacillus combination no.9 4 4,000 mmu cells PO DAILY 90 days 10/31/24 billion cell capsule (Adult 50 #90 caps Plus Probiotic) Allergies Allergy/AdvReac Type Severity Reaction Status Date / Time adhesive tape Allergy Unknown Verified 10/31/24 09:20 celecoxib [From Celebrex] Allergy Unknown Verified 10/31/24 09:20 doxycycline Allergy Unknown Verified 10/31/24 09:20 ibuprofen Allergy Unknown Verified 10/31/24 09:20 levofloxacin [From Levaquin] Allergy Unknown Verified 10/31/24 09:20 methadone Allergy ALGY-Anaphy Verified 10/31/24 09:20 laxis milnacipran [From Savella] Allergy Unknown Verified 10/31/24 09:20 morphine Allergy Unknown Verified 10/31/24 09:20 Penicillins Allergy unknown Verified 10/31/24 09:20 rofecoxib [From Vioxx] Allergy Unconscious Verified 10/31/24 09:20 Sulfa (Sulfonamide Allergy ALGY-Rash Verified 10/31/24 09:20 Antibiotics) terbinafine [From Lamisil] Allergy Unknown Verified 10/31/24 09:20 trazodone Allergy Unknown Verified 10/31/24 09:20 Review of Systems General: Reports: 10 or more systems reviewed and unremarkable except in HPI and below Const: Denies: fever(s), chills or body aches Eyes: Denies: change in vision ENMT: Denies: throat pain Card: Denies: chest pain, edema or syncope Resp: Denies: dyspnea or productive cough GI: Denies: abdominal pain, nausea, vomiting or diarrhea : Denies: flank pain, dysuria or urinary frequency Musc: Denies: neck pain, back pain, extremity pain or extremity swelling Skin/Breast: Denies: rash or erythema Neuro: Denies: headache(s), numbness in extremities, weakness in extremities, lack of coordination or difficulty walking PFSH ED PFSH: Medical History Chronic neck pain Chronic left shoulder pain Anxiety and depression Opioid contract exists Encounter for long-term use of opiate analgesic Fibromyalgia DDD (degenerative disc disease), lumbar Pain of paraspinal muscle Surgical History Status post laser lithotripsy of ureteral calculus Social History Smoking and tobacco/nicotine status: current every day tobacco/nicotine user cigarettes Packs smoked per day: 1.5 Alcohol intake: never Substance/Drug Use: never Physical Exam Narrative: EXAM NARRATIVE: Patient has 2 dime size masses on his right scrotum. Both of them are pretty proximal. The more proximal has intact skin and is firm and rubbery. The second is slightly tender and has a small skin opening and is discharging a serosanguineous discharge. The scrotal wall is slightly thicker than average although it is not tender, warm, or red. There is a significant amount of fat overlying the pubic bone but I do not feel any other masses, adenopathy or hernias. There is no crepitus or signs of necrotizing fasciitis today. The right testicle was not tender. The left testicle is artificial. No perineal findings. Const: COMMON NORMALS: no limitations, alert and well nourished EXAM LIMITATIONS: no altered mental status HENMT: COMMON NORMALS: normocephalic, atraumatic and external ears normal HEAD & SCALP: normocephalic and atraumatic EXTERNAL EAR: Yes external ears normal MOUTH: no muffled voice Eye: COMMON NORMALS: conjunctivae normal and no scleral icterus CONJUNCTIVA: Yes conjunctivae normal Neck/C-Spine: GENERAL: Yes normal visual inspection and Yes trachea midline Resp: COMMON NORMALS: normal respiratory effort and No use of accessory muscles Cardio: COMMON NORMALS: regular rate RATE: regular rate GI: COMMON NORMALS: Soft to palpation and non-tender PALPATION: Yes Soft to palpation and No Guarding due to palpation present (GI) Extremity: COMMON NORMALS: normal to inspection Neuro: COMMON NORMALS: moves all extremities, no focal motor deficits and no sensory deficits noted SENSORIUM/ORIENTATION: Yes alert SPEECH: speech normal Psych: COMMON NORMALS: mental status grossly normal, Normal thought process present, cooperative, normal affect and speech normal SPEECH: Yes normal speech THOUGHT PROCESS: Normal thought process present Skin: COMMON NORMALS: turgor normal and no jaundice GENERAL SKIN EXAM: turgor normal Course Vital Signs: Vital signs: Vital Signs Temperature 97.9 F 10/31/24 09:12 Pulse Rate 91 10/31/24 11:38 Respiratory Rate 18 10/31/24 11:38 Blood Pressure 134/74 10/31/24 11:38 Pulse Oximetry 94 10/31/24 11:38 Oxygen Delivery Me thod Room Air 10/31/24 11:38 [facility] - Male Medical Decision Making Patient has report of recurrent cysts on his scrotal wall. One of them is flesh-colored, rubbery, nontender. The other is dime sized and tender but without any erythema or appreciable warmth. This 1 is also discharging what appears to be some serosanguineous fluid. I suspect that this is a small abscess. The fact that it comes and goes makes me think that he has scarred here and probably has recurrent scrotal wall abscesses. Fortunately it is already draining today. There is no signs of necrotizing fasciitis today. His white count is normal. His glucose is normal today. He has not taking his metformin because it gave him diarrhea for 2 solid weeks and he could not tolerate it any longer. He reports his blood sugars do spike up after meals but come down pretty quickly. At this point he may just need a milder medication. We went over different options. We are going to start him on empagliflozin 10 mg/day as an adjunct. Because of his history of necrotizing fasciitis on the right side, I am going to go ahead and put him on clindamycin. Clindamycin was chosen because he is allergic to penicillins, sulfa drugs, doxycycline, dilia quinolones,, etc. I would like him to be on a probiotic. Had like him to do warm soaks twice a day. Patient needs to monitor symptoms closely and if he sees any worsening, he is can have to return to emergency care because it is near the holidays. Patient indicates understanding with plan. We did go ahead and do a scrotal ultrasound. This did not show any signs of intrascrotal fluid collections, orchitis, epididymitis, or air in the scrotal wall. Lab Data 10/31/24 10:44 10/31/24 10:44 Radiology Impressions Scrotum Ultrasound 10/31/24 10:24 IMPRESSION: 1. Mild heterogeneity throughout the RIGHT testicle but no mass. Heterogeneous probably due to prior episodes of infection. Normal vascularity. 2. Prior LEFT orchiectomy with prosthetic testicle replacement. 3. Marked RIGHT scrotal wall thickening but no abscess. Mild increased vascularity. Laboratory Results WBC 7.98 10^3/uL (3.29-11.43) 10/31/24 10:44 RBC 5.06 10^6/uL (3.85-5.65) 10/31/24 10:44 Hgb 16.00 g/dL (11.27-16.99) 12/19/24 10:44 Hct 47.4 % (37-53) 10/31/24 10:44 MCV 93.7 fl (82-101) 10/31/24 10:44 MCH 31.6 pg (27-33) 10/31/24 10:44 MCHC 33.8 g/dL (30-55) 10/31/24 10:44 RDW 12.1 % (12.1-15.1) 10/31/24 10:44 Plt Count 179 10^3/cmm (157-399) 10/31/24 10:44 MPV 10.4 fL (7.4-10.4) 10/31/24 10:44 Neut % (Auto) 60.6 % 10/31/24 10:44 Lymph % (Auto) 31.1 % 10/31/24 10:44 Harris % (Auto) 7.6 % 10/31/24 10:44 Eos % (Auto) 0.1 % 10/31/24 10:44 Baso % (Auto) 0.5 % 10/31/24 10:44 Neut # (Auto) 4.83 10^3/uL (1.8-7.7) 10/31/24 10:44 Lymph # (Auto) 2.5 10^3/uL (0.8-4.8) 10/31/24 10:44 Harris # (Auto) 0.6 10^3/uL (0.2-0.9) 10/31/24 10:44 Eos # (Auto) 0.0 10^3/uL (0.0-0.8) 10/31/24 10:44 Baso # (Auto) 0.0 10^3/uL (0.0-0.1) 10/31/24 10:44 Nucleated RBC % (auto) 0 % 10/31/24 10:44 Nucleated RBCs # 0.0 /100WBC 10/31/24 10:44 ESR 4 mm/hr (0-10) 10/31/24 10:44 Sodium 140 mmol/L (136-145) 10/31/24 10:44 Potassium 4.1 mmol/L (3.5-5.1) 10/31/24 10:44 Chloride 102 mmol/L (98-107) 10/31/24 10:44 Carbon Dioxide 28 mmol/L (22-29) 10/31/24 10:44 Anion Gap 14.1 (5-19) 10/31/24 10:44 BUN 12 mg/dL (6-20) 10/31/24 10:44 Creatinine 0.5 mg/dL (0.7-1.2) L 10/31/24 10:44 GFR Calculation 176.0 mL/min (90-130) H 10/31/24 10:44 Glucose 93 mg/dL (65-115) 10/31/24 10:44 Calculated Osmolality 289 mOsm/kg (285-295) 10/31/24 10:44 Calcium 9.4 mg/dL (8.5-10.5) 10/31/24 10:44 Total Bilirubin 0.3 mg/dL (0.15-1.2) 10/31/24 10:44 AST 17 U/L (0-40) 10/31/24 10:44 ALT 17 U/L (0-41) 10/31/24 10:44 Alkaline Phosphatase 119 U/L (40-130) 10/31/24 10:44 Total Protein 6.9 g/dL (6.6-8.7) 10/31/24 10:44 Albumin 4.3 g/dL (3.5-5.2) 10/31/24 10:44 Globulin 2.6 g/dL (1.3-4.6) 10/31/24 10:44 All radiology interpretation(s) finalized by discharge Discharge Plan Discharge Patient Disposition: Home Clinical Impression: Abscess of scrotal wall Condition: Stable Prescriptions: New clindamycin HCl [Cleocin HCl] 150 mg capsule 150 mg PO Q8H 7 Days Qty: 21 0RF Adult 50 Plus Probiotic 4 billion cell capsule 4,000 mmu cells PO DAILY 90 Days Qty: 90 0RF Rx Instructions: administer with a meal empagliflozin 10 mg tablet 10 mg PO DAILY Qty: 30 0RF Discontinued metformin 500 mg tablet extended release 24 hr 500 mg PO BID No Action ascorbic acid (vitamin C) 500 mg capsule 500 mg PO DAILY cholecalciferol (vitamin D3) 125 mcg (5,000 unit) capsule 125 mcg PO DAILY multivitamin Tablet 1 tab PO QAM atorvastatin 20 mg tablet 20 mg PO BEDTIME aspirin [Adult Low Dose Aspirin] 81 mg tablet,delayed release (DR/EC) 81 mg PO DAILY lisinopril 5 mg tablet 5 mg PO DAILY Trulicity 0.75 mg/0.5 mL pen injector 0.75 mg SUBCUT Q7D tramadol 50 mg tablet 50 mg PO Q4H MDD 4 per day PRN (Reason: pain) oxycodone-acetaminophen 7.5-325 mg tablet 1 tab PO Q4H MDD 4 per day PRN (Reason: pain) Discharge Orders: Discharge ED (Routine); Ordered 10/31/24 Ordered By: Gian Marquez Referrals: Mahad Silvestre MD [Primary Care Provider] - 4-7 days (scrotal wall abscess re-eval) Discharge Diet: Diabetic Discharge Activity: Increase activity as tolerated Patient Instructions: Abscess (ED) Activity Restrictions/Additional Instructions: 1. Soak scrotum in warm clean water for 20 min 2x daily 2. Take probiotic and antibiotic as prescribed 3. Take Jardiance to help reduce blood sugar along with diet/exercise. 4. Return to ER if you have fever, scrotal redness, scrotal warmth, increasing size of abscess, testicular pain, difficulty urinating, abdominal pain or other complications. 5. Follow-up with your doctor in 4 to 7 days for recheck. If you are unable to get to your doctor because of the holiday, you may have to be seen at urgent care or emergency care. Coding Level of Care Code ED [employer] for [employer]
[2024-10-31 11:17] LABS: Basophils % 0.5 %; Eosinophils % 0.1 %; Hematocrit 47.4 % (37-53); Lymphocytes # 2.5 10^3/uL (0.8-4.8); Lymphocytes % 31.1 %; Mean Corpuscular HGB Conc 33.8 g/dL (30-55); Mean Corpuscular Hemoglobin 31.6 pg (27-33); Mean Corpuscular Volume 93.7 fl (82-101); Mean Platelet Volume 10.4 fL (7.4-10.4); Monocytes # 0.6 10^3/uL (0.2-0.9); Monocytes % 7.6 %; Neutrophils # 4.83 10^3/uL (1.8-7.7); Neutrophils % 60.6 %; Nucleated Red Blood Cells % 0 %; Platelet Count 179 10^3/cmm (157-399); Red Blood Count 5.06 10^6/uL (3.85-5.65); Red Cell Distribution Width 12.1 % (12.1-15.1); White Blood Count 7.98 10^3/uL (3.29-11.43)
[2024-10-31 11:35] LABS: Alanine Aminotransferase 17 U/L (0-41); Albumin Level 4.3 g/dL (3.5-5.2); Alkaline Phosphatase 119 U/L (40-130); Aspartate Amino Transferase 17 U/L (0-40); Blood Urea Nitrogen 12 mg/dL (6-20); Calcium 9.4 mg/dL (8.5-10.5); Carbon Dioxide 28 mmol/L (22-29); Chloride 102 mmol/L (98-107); Globulin 2.6 g/dL (1.3-4.6); Glucose 93 mg/dL (65-115); Osmolality Calculated 289 mOsm/kg (285-295); Sodium 140 mmol/L (136-145); Total Bilirubin 0.3 mg/dL (0.15-1.2); Total Protein 6.9 g/dL (6.6-8.7)
[2024-10-31 11:38] VITALS: BP 134/74; PULSE 91; RESP 18; O2SAT 94
[2024-10-31 11:39] LABS: Anion Gap 14.1 (5-19); Potassium 4.1 mmol/L (3.5-5.1)
[2024-10-31 11:42] LABS: Erythrocyte Sedimentation Rate 4 mm/hr (0-10)
--- NOTE | 2024-10-31 12:23 | PC.NURSE ---
pt requesting to not take abt at this time d/t diarrhea, dr delgado and okayed, will send script and pt to take as soon as picked up today.
[2024-10-31 12:46] VITALS: BP 116/78; PULSE 86; RESP 16; O2SAT 95
[2024-10-31 13:13] VITALS: BP 116/78; PULSE 88; O2SAT 96
== END 2024-10-31 13:14 | disposition home or self-care (01) ==
PROVIDERS: Emergency Medicine; Emergency Provider Emergency Medicine; PCP Family Medicine
DX: N49.2 Inflammatory disorders of scrotum (principal); Z79.82 Long term (current) use of aspirin; F17.210 Nicotine dependence, cigarettes, uncomplicated
CPT/HCPCS: 36415; 76870; 80053; 85025; 85651; 99284

== ENCOUNTER 2025-01-14 14:18 | Outpatient (CLI) | payer MEDICAID, SELFPAY ==
--- NOTE | 2025-01-14 14:26 | XRR_ITS ---
PROCEDURE INFORMATION: Exam: XR Abdomen Exam date and time: 01/14/2025 2:30 PM Age: 49 years old Clinical indication: Abdominal pain; Lower bladder pain with hematuria x 3 wks, HX of previous kidney stones; Additional info: HX of nephrolithiasis, urinary symptoms TECHNIQUE: Imaging protocol: Radiologic exam of the abdomen. Views: Frontal supine view of the abdomen. 1 View. COMPARISON: CT abdomen pelvis w con* [id number] 09/18/2024 2:49 PM FINDINGS: Gastrointestinal tract: [id number] stool like debris is seen along the colon and is most particularly noted in the ascending transverse and to lesser degrees sigmoid regions. There is no evidence of small bowel dilatation. Bowel-gas debris do obscure renal detail. No distinct renal calcifications or calcifications along the psoas areas can be appreciated. A bone island is noted in the left ilium and is seen on an earlier CT study. No bowel dilation. Bones/joints: Left medial iliac bone island incidentally noted unchanged compared to prior CT. XR/XR KUB [id number] IMPRESSION: 1. Tgrb-yj-eymnicjw stool burden. 2. No acute abdominal plain film findings.
== END 2025-01-14 14:19 | disposition home or self-care (01) ==
PROVIDERS: PCP Family Medicine; Visit Provider Nurse Practitioner Family
DX: Z87.442 Personal history of urinary calculi (principal); R39.9 Unspecified symptoms and signs involving the genitourinary system; R10.9 Unspecified abdominal pain; R93.89 Abnormal findings on diagnostic imaging of other specified body structures; R93.7 Abnormal findings on diagnostic imaging of other parts of musculoskeletal system
CPT/HCPCS: 74018

== ENCOUNTER 2025-01-20 13:29 | Emergency (ER) | payer MEDICAID, SELFPAY ==
[2025-01-20 14:02] VITALS: BP 121/74; PULSE 81; RESP 16; TEMP 36.4; O2SAT 97; BMI 35.5
[2025-01-20 15:01] LABS: Alanine Aminotransferase 21 U/L (0-41); Albumin Level 4.7 g/dL (3.5-5.2); Alkaline Phosphatase 104 U/L (40-130); Blood Urea Nitrogen 14 mg/dL (6-20); Calcium 9.7 mg/dL (8.5-10.5); Carbon Dioxide 22 mmol/L (22-29); Chloride 101 mmol/L (98-107); Creatinine Clr Calc Pharmacy 190.5133; Globulin 2.6 g/dL (1.3-4.6); Glomerular Filtration Rate 142.6 mL/min (90-130); Glucose 117 mg/dL (65-115); Lipase 50 U/L (13-60); Osmolality Calculated 286 mOsm/kg (285-295); Sodium 137 mmol/L (136-145); Total Bilirubin 0.7 mg/dL (0.15-1.2); Total Protein 7.3 g/dL (6.6-8.7)
[2025-01-20 15:01] LABS: Bilirubin Urine Negative (Negative); Blood Urine Negative (Negative); Glucose Urine UA Negative (Normal); Ketones Urine Negative (Negative); Leukocyte Esterase Urine Negative (Negative); Nitrate Urine Negative (Negative); Protein Urine Negative (Negative); Specific Gravity, Urine 1.018 (1.005-1.030); Urine Appearance Clear (CLEAR); Urine Color Yellow (Yellow); Urobilinogen Urine 0.2 mg/dL (Negative); pH Urine 5.5 (5-7)
[2025-01-20 15:06] LABS: Add Urine Microscopic? YES; Bacteria Urine None Seen /hpf; RBC Urine 0-2 /hpf (0-2); Squamous Epithelial Cell Urine 0-5 /hpf (0-5); WBC Urine 0-5 /hpf (0-5)
[2025-01-20 15:08] LABS: Anion Gap 18.8 (5-19); Aspartate Amino Transferase 23 U/L (0-40); Potassium 4.8 mmol/L (3.5-5.1)
--- NOTE | 2025-01-20 16:03 | W.ED.ABDPA2 ---
Documented by User: Clarence Scott DO 01/21/25 06:08 HPI - Abdominal Pain General: Chief Complaint: Abdominal Pain Stated Complaint: abd pain Time Seen by Provider: 01/20/25 16:00 History of Present Illness: Associated Symptoms: Denies chills, dysuria and fever(s) Related Data Home Medications ?Medication ?Instructions ?Recorded ?Confirmed aspirin 81 mg tablet,delayed 81 mg PO DAILY 09/18/24 01/20/25 release (Adult Low Dose Aspirin) atorvastatin 20 mg tablet 20 mg PO BEDTIME 09/18/24 01/20/25 dulaglutide 0.75 mg/0.5 mL 0.75 mg SUBCUT Q7D 09/18/24 01/20/25 subcutaneous pen injector (Trulicity) lisinopril 5 mg tablet 5 mg PO DAILY 09/18/24 01/20/25 oxycodone-acetaminophen 7.5 mg-325 1 tab PO Q4H PRN pain 09/18/24 01/20/25 mg tablet tramadol 50 mg tablet 50 mg PO Q4H PRN pain 09/18/24 01/20/25 varenicline tartrate 1 mg tablet 1 mg PO BID 01/20/25 01/20/25 Previous Rx's ?Medication ?Instructions ?Recorded empagliflozin 10 mg tablet 10 mg PO DAILY #30 tabs 10/31/24 cephalexin 500 mg capsule 500 mg PO BID 10 days #20 caps 01/20/25 ondansetron 4 mg disintegrating 4 mg PO Q8H PRN nausea and 01/20/25 tablet vomiting #10 tabs tamsulosin 0.4 mg capsule (Flomax) 0.4 mg PO DAILY #30 caps 01/20/25 Allergies Allergy/AdvReac Type Severity Reaction Status Date / Time adhesive tape Allergy Unknown Verified 01/20/25 14:06 celecoxib (From Celebrex) Allergy Unknown Verified 01/20/25 14:06 doxycycline Allergy Unknown Verified 01/20/25 14:06 ibuprofen Allergy Unknown Verified 01/20/25 14:06 levofloxacin (From Levaquin) Allergy Unknown Verified 01/20/25 14:06 methadone Allergy ALGY-Anaphy Verified 01/20/25 14:06 laxis milnacipran (From Savella) Allergy Unknown Verified 01/20/25 14:06 morphine Allergy Unknown Verified 01/20/25 14:06 Penicillins Allergy unknown Verified 01/20/25 14:06 rofecoxib (From Vioxx) Allergy Unconscious Verified 01/20/25 14:06 Sulfa (Sulfonamide Allergy ALGY-Rash Verified 01/20/25 14:06 Antibiotics) terbinafine (From Lamisil) Allergy Unknown Verified 01/20/25 14:06 trazodone Allergy Unknown Verified 01/20/25 14:06 Review of Systems Const: Denies: fever(s) or chills Card: Denies: chest pain Resp: Denies: dyspnea GI: Reports: abdominal pain : Reports: flank pain; Denies: dysuria, urinary frequency or urinary urgency Musc: Denies: neck pain or back pain Skin/Breast: Denies: rash PFSH ED PFSH: Medical History Chronic neck pain Chronic left shoulder pain Anxiety and depression Opioid contract exists Encounter for long-term use of opiate analgesic Fibromyalgia DDD (degenerative disc disease), lumbar Pain of paraspinal muscle Surgical History Status post laser lithotripsy of ureteral calculus Social History Smoking and tobacco/nicotine status: current every day tobacco/nicotine user cigarettes Packs smoked per day: 1.5 Alcohol intake: never Substance/Drug Use: never Physical Exam Const: GENERAL APPEARANCE: cooperative ORIENTATION/CONSCIOUSNESS: Yes awake, Yes oriented to person, Yes oriented to place and Yes oriented to time HENMT: COMMON NORMALS: normocephalic, atraumatic and hearing grossly normal bilaterally HEAD & SCALP: normocephalic and atraumatic Resp: COMMON NORMALS: normal respiratory effort, No retractions, No use of accessory muscles and clear to auscultation bilaterally AUSCULTATION: clear to auscultation bilaterally Cardio: COMMON NORMALS: regular rate, regular rhythm and No murmurs present (Cardio) RATE: regular rate RHYTHM: regular rhythm GI: COMMON NORMALS: Soft to palpation and No hepatosplenomegaly present AUSCULTATION: Yes normoactive bowel sounds PALPATION: Yes Soft to palpation, No Tenderness to palpation present (GI), No Guarding due to palpation present (GI) and Yes No hepatosplenomegaly present Extremity: COMMON NORMALS: normal to inspection, capillary refill normal, no clubbing, cyanosis or edema, no calf tenderness and no pedal edema Neuro: SENSORIUM/ORIENTATION: Yes oriented to person, Yes oriented to place and Yes oriented to time Skin: COMMON NORMALS: no rashes or lesions noted GENERAL SKIN EXAM: no rashes or lesions noted Course Vital Signs: Vital signs: Vital Signs Temperature 97.5 F L 01/20/25 14:02 Pulse Rate 81 01/20/25 19:06 Respiratory Rate 16 01/20/25 18:00 Blood Pressure 115/72 01/20/25 19:06 Pulse Oximetry 96 01/20/25 19:06 Oxygen Delivery Nh thod Room Air 01/20/25 18:00 MDM - Abdominal Pain Medical Decision Making Care signed out to Dr. Bhatt at change of shift. See final notes for diagnosis and disposition. Patient care transitioned to mo at shift change. 49-year-old man with a history of chronic pain syndrome, hypertension and hyperlipidemia who presents the emergency room with right flank pain. He was seen initially by Dr. Scott and transition to mo at shift change. He is having right flank pain. Some nausea. No vomiting. No dysuria. CT of the abdomen pelvis was pending: This shows a 3 mm distal right kidney stone. This should pass. This was reviewed and interpreted by myself the emergency room physician. I also reviewed the radiology report. Assessment and plan: Ureterolithiasis. ?IV Zofran, Flomax given in the emergency room. Patient on oxycodone at home. Multiple drug allergies. Patient says he follows with urologist in [place]. - Discharged home - Discussed plan with patient. Answered any questions. - Evaluation and treatment of this problem were appropriate in the emergency setting. Lab Data 01/20/25 16:54 01/20/25 14:29 Labs/Radiology: Radiology Impressions Abdomen/Pelvis CT 01/20/25 16:57 IMPRESSION: 1. Right-sided pelviectasis secondary to a partially obstructive 3 mm distal ureteral stone. 2. Mild splenomegaly. Laboratory Results WBC 8.51 10^3/uL (3.29-11.43) 01/20/25 16:54 Corrected WBC Cancelled 01/20/25 14:29 RBC 5.28 10^6/uL (3.85-5.65) 01/20/25 16:54 Hgb 16.60 g/dL (11.27-16.99) 01/20/25 16:54 Hct 48.0 % (37-53) 01/20/25 16:54 MCV 90.9 fl (82-101) 01/20/25 16:54 MCH 31.4 pg (27-33) 01/20/25 16:54 MCHC 34.6 g/dL (30-55) 01/20/25 16:54 RDW 11.5 % (12.1-15.1) L 01/20/25 16:54 Plt Count 152 10^3/cmm (157-399) L 01/20/25 16:54 MPV 10.2 fL (7.4-10.4) 01/20/25 16:54 Gran % Cancelled 01/20/25 14:29 Neut % (Auto) 68.8 % 01/20/25 16:54 Lymph % (Auto) 24.1 % 01/20/25 16:54 [place] % (Auto) 6.3 % 01/20/25 16:54 Eos % (Auto) 0.1 % 01/20/25 16:54 Baso % (Auto) 0.6 % 01/20/25 16:54 Neut # (Auto) 5.85 10^3/uL (1.8-7.7) 01/20/25 16:54 Lymph # (Auto) 2.1 10^3/uL (0.8-4.8) 01/20/25 16:54 [place] # (Auto) 0.5 10^3/uL (0.2-0.9) 01/20/25 16:54 Eos # (Auto) 0.0 10^3/uL (0.0-0.8) 01/20/25 16:54 Baso # (Auto) 0.1 10^3/uL (0.0-0.1) 01/20/25 16:54 Absolute Gran (auto) Cancelled 01/20/25 14:29 Nucleated RBC % (auto) 0 % 01/20/25 16:54 Nucleated RBCs # 0.0 /100WBC 01/20/25 16:54 Sodium 137 mmol/L (136-145) 01/20/25 14:29 Potassium 4.8 mmol/L (3.5-5.1) 01/20/25 14: Chloride 101 mmol/L (98-107) 01/20/25 14: Carbon Dioxide 22 mmol/L (22-29) 01/20/25 14: Anion Gap 18.8 (5-19) 01/20/25 14: BUN 14 mg/dL (6-20) 01/20/25 14: Creatinine 0.6 mg/dL (0.7-1.2) L 01/20/25 14: GFR Calculation 142.6 mL/min (90-130) H 01/20/25 14: Glucose 117 mg/dL (65-115) H 01/20/25 14: Calculated Osmolality 286 mOsm/kg (285-295) 01/20/25 14: Calcium 9.7 mg/dL (8.5-10.5) 01/20/25 14: Total Bilirubin 0.7 mg/dL (0.15-1.2) 01/20/25 14: AST 23 U/L (0-40) 01/20/25 14: ALT 21 U/L (0-41) 01/20/25 14: Alkaline Phosphatase 104 U/L (40-130) 01/20/25 14: Total Protein 7.3 g/dL (6.6-8.7) 01/20/25 14: Albumin 4.7 g/dL (3.5-5.2) 01/20/25 14: Globulin 2.6 g/dL (1.3-4.6) 01/20/25 14: Lipase 50 U/L (13-60) 01/20/25 14:29 Urine Color Yellow (Yellow) 01/20/25 14:17 Urine Appearance Clear (CLEAR) 01/20/25 14:17 Urine pH 5.5 (5-7) 01/20/25 14:17 Ur Specific [place] 1.018 (1.005-1.030) 01/20/25 14:17 Urine Protein Negative (Negative) 01/20/25 14:17 Urine Glucose (UA) Negative (Normal) 01/20/25 14:17 Urine Ketones Negative (Negative) 01/20/25 14:17 Urine Blood Negative (Negative) 01/20/25 14:17 Urine Nitrate Negative (Negative) 01/20/25 14:17 Urine Bilirubin Negative (Negative) 01/20/25 14:17 Urine Urobilinogen 0.2 mg/dL (Negative) 01/20/25 14:17 Ur Leukocyte Esterase Negative (Negative) 01/20/25 14:17 Urine RBC 0-2 /hpf (0-2) 01/20/25 14:17 Urine WBC 0-5 /hpf (0-5) 01/20/25 14:17 Ur Squamous Epith Cells 0-5 /hpf (0-5) 01/20/25 14:17 Amorphous Sediment Not Reportable 01/20/25 14:17 Urine Bacteria None seen /hpf (NONE) 01/20/25 14:17 Hyaline Casts 0.40 /lpf 01/20/25 14:17 Discharge Plan Discharge Patient Disposition: Home Clinical Impression: Ureterolithiasis Condition: Stable Prescriptions: New tamsulosin [Flomax] 0.4 mg capsule 0.4 mg PO DAILY Qty: 30 0RF cephalexin 500 mg capsule 500 mg PO BID 10 Days Qty: 20 0RF ondansetron 4 mg tablet,disintegrating 4 mg PO Q8H PRN (Reason: nausea and vomiting) Qty: 10 0RF No Action atorvastatin 20 mg tablet 20 mg PO BEDTIME aspirin [Adult Low Dose Aspirin] 81 mg tablet,delayed release (DR/EC) 81 mg PO DAILY lisinopril 5 mg tablet 5 mg PO DAILY Trulicity 0.75 mg/0.5 mL pen injector 0.75 mg SUBCUT Q7D tramadol 50 mg tablet 50 mg PO Q4H MDD 4 per day PRN (Reason: pain) oxycodone-acetaminophen 7.5-325 mg tablet 1 tab PO Q4H MDD 4 per day PRN (Reason: pain) varenicline tartrate 1 mg tablet 1 mg PO BID empagliflozin 10 mg tablet 10 mg PO DAILY Qty: 30 0RF Discharge Orders: Discharge ED (Routine); Ordered 01/20/25 Ordered By: Abbie Bhatt Referrals: Chandrakant Stern [Referring] - 4-7 days (Please follow-up with Dr. Stern or with urologist of your choosing.) Mahad Silvestre MD [Primary Care Provider] - Discharge Diet: Usual diet Discharge Activity: Increase activity as tolerated Patient Instructions: Opioid Safety, Pain Management Activity Restrictions/Additional Instructions: Call for appointment with urology. If fever (temp >100.4) develops return to the emergency room immediately, as this is an emergency. Take nausea medication prior to taking pain medications. Thank you for choosing [facility] for your healthcare needs today. Please realize this is an emergency room and that we are providing you with a medical screening exam and this may not be complete and all inclusive of all the testing and or work up that you may need to determine your ailment or severity of your illness. You have been screened and evaluated and felt safe for discharge. Health conditions do change or evolve sometimes and as such it is important that you follow up with your Primary Doctor to be re checked, 3-5 days is a general good time frame for follow up. You are always welcome to return to the ED for re assessment if your symptoms are worsening or you have new concerns Print Language: Prydeinig Coding Level of Care Code ED Fitness And Wellness Director for [facility] Documented by User: Abbie Bhatt MD 01/20/25 18:34 HPI - Abdominal Pain General: Chief Complaint: Abdominal Pain Stated Complaint: abd pain Time Seen by Provider: 01/20/25 16:00 History of Present Illness: 49-year-old man with a history of chronic pain syndrome, hypertension and hyperlipidemia who presents the emergency room with right flank pain. He was seen initially by Dr. Scott and transition to me at shift change. He is having right flank pain. Some nausea. No vomiting. No dysuria. Related Data Home Medications ?Medication ?Instructions ?Recorded ?Confirmed aspirin 81 mg tablet,delayed 81 mg PO DAILY 09/18/24 01/20/25 release (Adult Low Dose Aspirin) atorvastatin 20 mg tablet 20 mg PO BEDTIME 09/18/24 01/20/25 dulaglutide 0.75 mg/0.5 mL 0.75 mg SUBCUT Q7D 09/18/24 01/20/25 subcutaneous pen injector (Trulicity) lisinopril 5 mg tablet 5 mg PO DAILY 09/18/24 01/20/25 oxycodone-acetaminophen 7.5 mg-325 1 tab PO Q4H PRN pain 09/18/24 01/20/25 mg tablet tramadol 50 mg tablet 50 mg PO Q4H PRN pain 09/18/24 01/20/25 varenicline tartrate 1 mg tablet 1 mg PO BID 01/20/25 01/20/25 Previous Rx's ?Medication ?Instructions ?Recorded empagliflozin 10 mg tablet 10 mg PO DAILY #30 tabs 10/31/24 cephalexin 500 mg capsule 500 mg PO BID 10 days #20 caps 01/20/25 ondansetron 4 mg disintegrating 4 mg PO Q8H PRN nausea and 01/20/25 tablet vomiting #10 tabs tamsulosin 0.4 mg capsule (Flomax) 0.4 mg PO DAILY #30 caps 01/20/25 Allergies Allergy/AdvReac Type Severity Reaction Status Date / Time adhesive tape Allergy Unknown Verified 01/20/25 14:06 celecoxib (From Celebrex) Allergy Unknown Verified 01/20/25 14:06 doxycycline Allergy Unknown Verified 01/20/25 14:06 ibuprofen Allergy Unknown Verified 01/20/25 14:06 levofloxacin (From Levaquin) Allergy Unknown Verified 01/20/25 14:06 methadone Allergy ALGY-Anaphy Verified 01/20/25 14:06 laxis milnacipran (From Savella) Allergy Unknown Verified 01/20/25 14:06 morphine Allergy Unknown Verified 01/20/25 14:06 Penicillins Allergy unknown Verified 01/20/25 14:06 rofecoxib (From Vioxx) Allergy Unconscious Verified 01/20/25 14:06 Sulfa (Sulfonamide Allergy ALGY-Rash Verified 01/20/25 14:06 Antibiotics) terbinafine (From Lamisil) Allergy Unknown Verified 01/20/25 14:06 trazodone Allergy Unknown Verified 01/20/25 14:06 PFSH ED PFSH: Medical History Chronic neck pain Chronic left shoulder pain Anxiety and depression Opioid contract exists Encounter for long-term use of opiate analgesic Fibromyalgia DDD (degenerative disc disease), lumbar Pain of paraspinal muscle Surgical History Status post laser lithotripsy of ureteral calculus Social History Smoking and tobacco/nicotine status: current every day tobacco/nicotine user cigarettes Packs smoked per day: 1.5 Alcohol intake: never Substance/Drug Use: never Course Vital Signs: Vital signs: Vital Signs Temperature 97.5 F L 01/20/25 14:02 Pulse Rate 81 01/20/25 19:06 Respiratory Rate 16 01/20/25 18:00 Blood Pressure 115/72 01/20/25 19:06 Pulse Oximetry 96 01/20/25 19:06 Oxygen Delivery Nh thod Room Air 01/20/25 18:00 MDM - Abdominal Pain Medical Decision Making Patient care transitioned to mo at shift change. 49-year-old man with a history of chronic pain syndrome, hypertension and hyperlipidemia who presents the emergency room with right flank pain. He was seen initially by Dr. Scott and transition to mo at shift change. He is having right flank pain. Some nausea. No vomiting. No dysuria. CT of the abdomen pelvis was pending: This shows a 3 mm distal right kidney stone. This should pass. This was reviewed and interpreted by myself the emergency room physician. I also reviewed the radiology report. Assessment and plan: Ureterolithiasis. ?IV Zofran, Flomax given in the emergency room. Patient on oxycodone at home. Multiple drug allergies. Patient says he follows with urologist in [place]. - Discharged home - Discussed plan with patient. Answered any questions. - Evaluation and treatment of this problem were appropriate in the emergency setting. Lab Data 01/20/25 16:54 01/20/25 14:29 Labs/Radiology: Radiology Impressions Abdomen/Pelvis CT 01/20/25 16:57 IMPRESSION: 1. Right-sided pelviectasis secondary to a partially obstructive 3 mm distal ureteral stone. 2. Mild splenomegaly. Laboratory Results WBC 8.51 10^3/uL (3.29-11.43) 01/20/25 16:54 Corrected WBC Cancelled 01/20/25 14:29 RBC 5.28 10^6/uL (3.85-5.65) 01/20/25 16:54 Hgb 16.60 g/dL (11.27-16.99) 01/20/25 16:54 Hct 48.0 % (37-53) 01/20/25 16:54 MCV 90.9 fl (82-101) 01/20/25 16:54 MCH 31.4 pg (27-33) 01/20/25 16:54 MCHC 34.6 g/dL (30-55) 01/20/25 16:54 RDW 11.5 % (12.1-15.1) L 01/20/25 16:54 Plt Count 152 10^3/cmm (157-399) L 01/20/25 16:54 MPV 10.2 fL (7.4-10.4) 01/20/25 16:54 Gran % Cancelled 01/20/25 14:29 Neut % (Auto) 68.8 % 01/20/25 16:54 Lymph % (Auto) 24.1 % 01/20/25 16:54 [place] % (Auto) 6.3 % 01/20/25 16:54 Eos % (Auto) 0.1 % 01/20/25 16:54 Baso % (Auto) 0.6 % 01/20/25 16:54 Neut # (Auto) 5.85 10^3/uL (1.8-7.7) 01/20/25 16:54 Lymph # (Auto) 2.1 10^3/uL (0.8-4.8) 01/20/25 16:54 [place] # (Auto) 0.5 10^3/uL (0.2-0.9) 01/20/25 16:54 Eos # (Auto) 0.0 10^3/uL (0.0-0.8) 01/20/25 16:54 Baso # (Auto) 0.1 10^3/uL (0.0-0.1) 01/20/25 16:54 Absolute Gran (auto) Cancelled 01/20/25 14:29 Nucleated RBC % (auto) 0 % 01/20/25 16:54 Nucleated RBCs # 0.0 /100WBC 01/20/25 16:54 Sodium 137 mmol/L (136-145) 01/20/25 14:29 Potassium 4.8 mmol/L (3.5-5.1) 01/20/25 14:29 Chloride 101 mmol/L (98-107) 01/20/25 14:29 Carbon Dioxide 22 mmol/L (22-29) 01/20/25 14: Anion Gap 18.8 (5-19) 01/20/25 14:29 BUN 14 mg/dL (6-20) 01/20/25 14: Creatinine 0.6 mg/dL (0.7-1.2) L 01/20/25 14: GFR Calculation 142.6 mL/min (90-130) H 01/20/25 14: Glucose 117 mg/dL (65-115) H 01/20/25 14: Calculated Osmolality 286 mOsm/kg (285-295) 01/20/25 14: Calcium 9.7 mg/dL (8.5-10.5) 01/20/25 14: Total Bilirubin 0.7 mg/dL (0.15-1.2) 01/20/25 14: AST 23 U/L (0-40) 01/20/25 14:29 ALT 21 U/L (0-41) 01/20/25 14:29 Alkaline Phosphatase 104 U/L (40-130) 01/20/25 14:29 Total Protein 7.3 g/dL (6.6-8.7) 01/20/25 14: Albumin 4.7 g/dL (3.5-5.2) 01/20/25 14: Globulin 2.6 g/dL (1.3-4.6) 01/20/25 14: Lipase 50 U/L (13-60) 01/20/25 14:29 Urine Color Yellow (Yellow) 01/20/25 14:17 Urine Appearance Clear (CLEAR) 01/20/25 14:17 Urine pH 5.5 (5-7) 01/20/25 14:17 Ur Specific [place] 1.018 (1.005-1.030) 01/20/25 14:17 Urine Protein Negative (Negative) 01/20/25 14:17 Urine Glucose (UA) Negative (Normal) 01/20/25 14:17 Urine Ketones Negative (Negative) 01/20/25 14:17 Urine Blood Negative (Negative) 01/20/25 14:17 Urine Nitrate Negative (Negative) 01/20/25 14:17 Urine Bilirubin Negative (Negative) 01/20/25 14:17 Urine Urobilinogen 0.2 mg/dL (Negative) 01/20/25 14:17 Ur Leukocyte Esterase Negative (Negative) 01/20/25 14:17 Urine RBC 0-2 /hpf (0-2) 01/20/25 14:17 Urine WBC 0-5 /hpf (0-5) 01/20/25 14:17 Ur Squamous Epith Cells 0-5 /hpf (0-5) 01/20/25 14:17 Amorphous Sediment Not Reportable 01/20/25 14:17 Urine Bacteria None seen /hpf (NONE) 01/20/25 14:17 Hyaline Casts 0.40 /lpf 01/20/25 14:17 All radiology interpretation(s) finalized by discharge Discharge Plan Discharge Patient Disposition: Home Clinical Impression: Ureterolithiasis Condition: Stable Prescriptions: New tamsulosin [Flomax] 0.4 mg capsule 0.4 mg PO DAILY Qty: 30 0RF cephalexin 500 mg capsule 500 mg PO BID 10 Days Qty: 20 0RF ondansetron 4 mg tablet,disintegrating 4 mg PO Q8H PRN (Reason: nausea and vomiting) Qty: 10 0RF No Action atorvastatin 20 mg tablet 20 mg PO BEDTIME aspirin [Adult Low Dose Aspirin] 81 mg tablet,delayed release (DR/EC) 81 mg PO DAILY lisinopril 5 mg tablet 5 mg PO DAILY Trulicity 0.75 mg/0.5 mL pen injector 0.75 mg SUBCUT Q7D tramadol 50 mg tablet 50 mg PO Q4H MDD 4 per day PRN (Reason: pain) oxycodone-acetaminophen 7.5-325 mg tablet 1 tab PO Q4H MDD 4 per day PRN (Reason: pain) varenicline tartrate 1 mg tablet 1 mg PO BID empagliflozin 10 mg tablet 10 mg PO DAILY Qty: 30 0RF Discharge Orders: Discharge ED (Routine); Ordered 01/20/25 Ordered By: Abbie Bhatt Referrals: Chandrakant Stern [Referring] - 4-7 days (Please follow-up with Dr. Stern or with urologist of your choosing.) Mahad Silvestre MD [Primary Care Provider] - Discharge Diet: Usual diet Discharge Activity: Increase activity as tolerated Patient Instructions: Opioid Safety, Pain Management Activity Restrictions/Additional Instructions: Call for appointment with urology. If fever (temp >100.4) develops return to the emergency room immediately, as this is an emergency. Take nausea medication prior to taking pain medications. Thank you for choosing [facility] for your healthcare needs today. Please realize this is an emergency room and that we are providing you with a medical screening exam and this may not be complete and all inclusive of all the testing and or work up that you may need to determine your ailment or severity of your illness. You have been screened and evaluated and felt safe for discharge. Health conditions do change or evolve sometimes and as such it is important that you follow up with your Primary Doctor to be re checked, 3-5 days is a general good time frame for follow up. You are always welcome to return to the ED for re assessment if your symptoms are worsening or you have new concerns Print Language: Prydeinig Coding Level of Care Code ED Fitness And Wellness Director for [facility]
[2025-01-20 16:33] VITALS: BP 110/76; PULSE 75; RESP 16; O2SAT 95
--- NOTE | 2025-01-20 16:57 | CTR_ITS ---
PROCEDURE INFORMATION: Exam: CT Abdomen And Pelvis Without Contrast Exam date and time: 01/20/2025 5:00 PM Age: 49 years old Clinical indication: Other: Bladder and penis pain x 2 weeks; Additional info: Flank pain/abdominal pain TECHNIQUE: Imaging protocol: Computed tomography of the abdomen and pelvis without contrast. Radiation optimization: All CT scans at this facility use at least one of these dose optimization techniques: automated exposure control; mA and/or kV adjustment per patient size (includes targeted exams where dose is matched to clinical indication); or iterative reconstruction. COMPARISON: CT abdomen pelvis w con* [id number] 09/18/2024 2:49 PM RADIATION DOSE METRICS: Total DLP (mGy-cm): 1094.84 FINDINGS: Lungs: Subsegmental bibasilar atelectasis. The visualized lung bases are otherwise clear. Diaphragm: No evidence of diaphragmatic defect. Liver: No evidence of focal hepatic lesion within limitation of a noncontrast exam. Gallbladder and biliary ducts: There is cholelithiasis. No inflammatory changes to suggest acute cholecystitis. No intrahepatic or extrahepatic biliary dilatation. Pancreas: Grossly unremarkable. Spleen: Mildly enlarged measuring up to 14 cm in length. Adrenal glands: Grossly unremarkable. Kidneys and ureters: Right-sided pelviectasis secondary to a partially obstructive 3 mm distal ureteral stone. No hydronephrosis or ureteral stone on the left. There is a nonobstructive 1 mm left-sided renal stone. Stomach and bowel: No evidence of bowel obstruction or perienteric inflammatory changes. Appendix: Normal appendix. Intraperitoneal space: No evidence of free air or fluid collection. Vasculature: No evidence of aneurysmal dilitation of abdominal aorta. Lymph nodes: No evidence of adenopathy. Urinary bladder: Grossly unremarkable. Reproductive: Grossly unremarkable. Bones/joints: No evidence of acute fracture or aggresive osseous lesion. Soft tissues: No evidence of fluid collection or hematoma in the superficial soft tissues. CT/CT kidney stone [id number] IMPRESSION: 1. Right-sided pelviectasis secondary to a partially obstructive 3 mm distal ureteral stone. 2. Mild splenomegaly.
[2025-01-20 17:00] VITALS: BP 122/79; PULSE 75; RESP 16; O2SAT 97
[2025-01-20 17:02] LABS: Basophils # 0.1 10^3/uL (0.0-0.1); Basophils % 0.6 %; Eosinophils % 0.1 %; Lymphocytes # 2.1 10^3/uL (0.8-4.8); Lymphocytes % 24.1 %; Mean Corpuscular HGB Conc 34.6 g/dL (30-55); Mean Corpuscular Hemoglobin 31.4 pg (27-33); Mean Corpuscular Volume 90.9 fl (82-101); Mean Platelet Volume 10.2 fL (7.4-10.4); Monocytes # 0.5 10^3/uL (0.2-0.9); Monocytes % 6.3 %; Neutrophils # 5.85 10^3/uL (1.8-7.7); Neutrophils % 68.8 %; Nucleated Red Blood Cells % 0 %; Platelet Count 152 10^3/cmm (157-399); Red Blood Count 5.28 10^6/uL (3.85-5.65); Red Cell Distribution Width 11.5 % (12.1-15.1); White Blood Count 8.51 10^3/uL (3.29-11.43)
[2025-01-20 18:00] VITALS: BP 115/64; PULSE 72; RESP 16; O2SAT 96
[2025-01-20] MEDS: tamsulosin 0.4 mg Capsule PO (18:41)
[2025-01-20 19:06] VITALS: BP 115/72; PULSE 81; O2SAT 96
== END 2025-01-20 19:05 | disposition home or self-care (01) ==
PROVIDERS: Emergency Medicine; Emergency Provider Emergency Medicine; PCP Family Medicine
DX: N20.1 Calculus of ureter (principal); Z79.82 Long term (current) use of aspirin; F17.210 Nicotine dependence, cigarettes, uncomplicated
CPT/HCPCS: 36415; 51798; 74176; 80053; 81001; 83690; 85025; 99284

== ENCOUNTER 2025-02-24 12:46 | Emergency (ER) | payer MEDICAID, SELFPAY ==
[2025-02-24 12:50] VITALS: BP 145/80; PULSE 82; TEMP 36.7; O2SAT 97; BMI 36.6
--- NOTE | 2025-02-24 13:05 | US_ITS ---
WS: [id number] TESTICULAR ULTRASOUND HISTORY: testicle swelling COMPARISON: 10/31/2024 TECHNIQUE: Real-time and color Doppler imaging utilized to perform a testicular ultrasound. Right testicle: 4.7 cm x 4.1 cm x 2.5 cm. Normal sized testicle but is very heterogeneous. Color Doppler is present that decreased, similar to the prior ultrasound. Normal systolic and diastolic velocities. No significant hydrocele. Right epididymis: Normal epididymis with no increased vascularity. Prior LEFT orchiectomy. There is an implant in place. US/US scrotum [id number] IMPRESSION: 1. Heterogeneous RIGHT testicle very similar to the prior study. Systolic and diastolic velocities identified within the testicle. No mass identified. 2. LEFT testicle implant.
--- NOTE | 2025-02-24 13:17 | W.ED.MALEGU ---
HPI - Male Genitourinary General: Chief complaint: Urogenital-Male Stated complaint: lump in groin area, some pain Time Seen by Provider: 02/24/25 12:59 Source: patient Mode of arrival: ambulatory Limitations: no limitations History of Present Illness: 49-year-old male who states that he has had a rash to his legs for 3 to 4 years states he is also had he noticed a small area of swelling on his testicle he states he has seen multiple people including dermatology and his PCP has not been able to get rid of the rash states he is currently on Diflucan along with a cream he was prescribed last week. He denies any testicle pain denies any fevers denies any dysuria Associated symptoms: Deny nausea or vomiting Related Data Home Medications ?Medication ?Instructions ?Recorded ?Confirmed oxycodone-acetaminophen 7.5 mg-325 1 tab PO Q4H PRN pain 09/18/24 02/24/25 mg tablet tramadol 50 mg tablet 50 mg PO Q4H PRN pain 09/18/24 02/24/25 fluconazole 150 mg tablet 150 mg PO .QOD x14d 02/24/25 02/24/25 mupirocin 2 % topical ointment 1 applic topical TID PRN until 02/24/25 02/24/25 healed Allergies Allergy/AdvReac Type Severity Reaction Status Date / Time adhesive tape Allergy Unknown Verified 02/24/25 12:58 celecoxib (From Celebrex) Allergy Unknown Verified 02/24/25 12:58 cephalexin (From Keflex) Allergy Unknown Verified 02/24/25 12:58 doxycycline Allergy Unknown Verified 02/24/25 12:58 ibuprofen Allergy Unknown Verified 02/24/25 12:58 levofloxacin (From Levaquin) Allergy Unknown Verified 02/24/25 12:58 methadone Allergy ALGY-Anaphy Verified 02/24/25 12:58 laxis milnacipran (From Savella) Allergy Unknown Verified 02/24/25 12:58 morphine Allergy Unknown Verified 02/24/25 12:58 Penicillins Allergy unknown Verified 02/24/25 12:58 rofecoxib (From Vioxx) Allergy Unconscious Verified 02/24/25 12:58 Sulfa (Sulfonamide Allergy ALGY-Rash Verified 02/24/25 12:58 Antibiotics) terbinafine (From Lamisil) Allergy Unknown Verified 02/24/25 12:58 trazodone Allergy Unknown Verified 02/24/25 12:58 Review of Systems Const: Denies: fever(s), chills, body aches or change in appetite ENMT: Denies: throat pain or dental pain Card: Denies: chest pain Resp: Denies: dyspnea GI: Denies: abdominal pain, nausea, vomiting or diarrhea Musc: Denies: neck pain or back pain Skin/Breast: Reports: rash Neuro: Denies: headache(s) PFSH ED PFSH: Medical History Chronic neck pain Chronic left shoulder pain Anxiety and depression Opioid contract exists Encounter for long-term use of opiate analgesic Fibromyalgia DDD (degenerative disc disease), lumbar Pain of paraspinal muscle Surgical History Status post laser lithotripsy of ureteral calculus Social History Smoking and tobacco/nicotine status: current every day tobacco/nicotine user cigarettes Packs smoked per day: 1.5 Alcohol intake: never Substance/Drug Use: never Physical Exam Const: COMMON NORMALS: no acute distress, patient oriented x3 and healthy appearing HENMT: COMMON NORMALS: normocephalic and atraumatic HEAD & SCALP: normocephalic and atraumatic Eye: COMMON NORMALS: conjunctivae normal CONJUNCTIVA: Yes conjunctivae normal Neck/C-Spine: COMMON NORMALS: full ROM and supple Chest: COMMONS NORMALS: normal inspection of the chest Resp: COMMON NORMALS: normal respiratory effort Cardio: COMMON NORMALS: regular rate RATE: regular rate : TESTES: Yes testicular lie normal, No testicular swelling, No testicular tenderness and No testicular mass Extremity: COMMON NORMALS: normal to inspection and full ROM Neuro: COMMON NORMALS: patient oriented x3, moves all extremities and no focal motor deficits Psych: COMMON NORMALS: mental status grossly normal, Normal thought process present and cooperative THOUGHT PROCESS: Normal thought process present Skin: COMMON NORMALS: no rashes or lesions noted and no wounds GENERAL SKIN EXAM: no rashes or lesions noted Course Vital Signs: Vital signs: Vital Signs Temperature 98.1 F 02/24/25 12:50 Pulse Rate 82 02/24/25 12:50 Blood Pressure 145/80 02/24/25 12:50 Pulse Oximetry 97 02/24/25 12:50 Oxygen Delivery Me thod Room Air 02/24/25 12:50 MDM - Male Medical Decision Making Patient presents here with rash to his legs going for years it appears to me to be likely a stasis dermatitis slight yeast infection to his groin ultrasound showed no signs of abscess or Pavan's he is to continue his Diflucan from his PCP and follow back up return if worsening. Medical Records I reviewed the patient's medical records. No radiology studies performed this visit Discharge Plan Discharge Patient Disposition: Home Clinical Impression: Testicle swelling, Rash Condition: Stable Prescriptions: No Action tramadol 50 mg tablet 50 mg PO Q4H MDD 4 per day PRN (Reason: pain) oxycodone-acetaminophen 7.5-325 mg tablet 1 tab PO Q4H MDD 4 per day PRN (Reason: pain) fluconazole 150 mg tablet 150 mg PO .QOD mupirocin 2 % ointment 1 applic TOPICAL TID PRN (Reason: until healed) Discharge Orders: Discharge ED (Routine); Ordered 02/24/25 Ordered By: Steph Alberto Referrals: Mahad Silvestre MD [Primary Care Provider] - 1-3 days Discharge Diet: Advance as tolerated Discharge Activity: Resume usual activity Patient Instructions: Rash - Nonspecific Print Language: Scottish Coding Level of Care Code ED Child Support Case Officer for Ludwig Waters
--- NOTE | 2025-02-24 13:40 | PC.PHAR ---
Pt states no longer taking any medications except Percocet, Tramadol, Fluconazole and Mupirocin 2%. Removed from chart are the following: Aspirin 81 mg daily 09/16/25 Atorvastatin 20mg at bedtime 09/16/24 Jardiance 10mg daily 12/24/24 Lisinopril 5 daily 09/16/24 Zofran 4mg q8h prn 01/30/25 Flomoax 0.4mg daily 01/21/25 Trulicity 0.75mg/0.5ml pen 0.75ng q7d Chantix 1mg bid 01/24/25 Metformin ER 500mg bid 09/16/24
[2025-02-24 14:23] VITALS: BP 144/86; PULSE 94; RESP 16; O2SAT 97
== END 2025-02-24 14:20 | disposition home or self-care (01) ==
PROVIDERS: Emergency Provider Emergency Medicine; PCP Family Medicine
DX: N50.89 Other specified disorders of the male genital organs (principal); R21 Rash and other nonspecific skin eruption; F17.210 Nicotine dependence, cigarettes, uncomplicated
CPT/HCPCS: 76870; 99284

== ENCOUNTER → 2025-03-04 14:38 | Outpatient (BNVA) | payer MEDICAID, SELFPAY | PROVIDERS: PCP Family Medicine; Visit Provider Nurse Practitioner Family | DX: L30.4 Erythema intertrigo (principal); S81.802A Unspecified open wound, left lower leg, initial encounter; B35.1 Tinea unguium; D22.5 Melanocytic nevi of trunk; L91.8 Other hypertrophic disorders of the skin; H53.451 Other localized visual field defect, right eye; L53.8 Other specified erythematous conditions; D48.5 Neoplasm of uncertain behavior of skin; X58.XXXA Exposure to other specified factors, initial encounter | CPT/HCPCS: 11102; 17110; 99204 ==

== ENCOUNTER → 2025-03-11 15:04 | Outpatient (BNVA) | payer MEDICAID, SELFPAY | PROVIDERS: PCP Family Medicine; Visit Provider Podiatrist Foot & Ankle Surgery | DX: B35.3 Tinea pedis (principal) | CPT/HCPCS: 99203 ==

== ENCOUNTER → 2025-04-23 15:00 | Outpatient (BNVA) | payer MEDICAID, SELFPAY | PROVIDERS: PCP Family Medicine; Visit Provider Dermatology | DX: D22.5 Melanocytic nevi of trunk (principal) | CPT/HCPCS: 11602; 13101 ==

== ENCOUNTER 2025-06-06 15:05 | Outpatient (CLI) | payer MEDICAID, SELFPAY ==
--- NOTE | 2025-06-06 15:35 | US_ITS ---
WS: [id number] TESTICULAR ULTRASOUND HISTORY: EDEMA COMPARISON: 02/24/2025 TECHNIQUE: Real-time and color Doppler imaging utilized to perform a testicular ultrasound. Right testicle: 4.6 cm x 2.8 cm x 2.6 cm. RIGHT testicle similar in size to prior studies. Very heterogeneous appearance of the entire RIGHT testicle. There is no mass identified or increased vascularity. Doppler noted within the peripheral testicle. Similar to prior studies. No significant hydrocele. Right epididymis: Normal epididymis with no increased vascularity. Status post LEFT testicle implant. Soft tissues around the implant appear appropriate. Mild scrotal wall thickening is identified. Similar to prior studies and symmetric between the RIGHT and LEFT scrotal wall. US/US scrotum [id number] IMPRESSION: 1. Heterogeneous RIGHT testicle. No mass identified. Heterogeneity may be from prior episodes of orchitis. No evidence for orchitis on today's exam. 2. LEFT testicle implant. 3. Mild scrotal wall thickening, similar to prior studies.
== END 2025-06-06 15:06 | disposition home or self-care (01) ==
LOC: RAD 15:06
PROVIDERS: PCP Family Medicine; Visit Provider Family Medicine
DX: N50.89 Other specified disorders of the male genital organs (principal)
CPT/HCPCS: 76870

== ENCOUNTER → 2025-06-24 09:06 | Outpatient (BNVA) | payer MEDICAID, SELFPAY | PROVIDERS: PCP Family Medicine; Visit Provider Orthopaedic Surgery | DX: M54.9 Dorsalgia, unspecified (principal); M54.2 Cervicalgia; M54.42 Lumbago with sciatica, left side; M54.41 Lumbago with sciatica, right side; G89.29 Other chronic pain | CPT/HCPCS: 72072; 72110; 99203 ==

== ENCOUNTER 2025-06-27 10:47 | Emergency (ER) | payer MEDICAID, SELFPAY ==
[2025-06-27 10:56] VITALS: BP 147/72; PULSE 83; RESP 16; TEMP 36.4; O2SAT 95
--- OUTSIDE RECORDS SUMMARY | 2025-06-27 10:56 | XMS_ITS | Clinical Summary ---
Author Organization [facility] Address [address] [place] [address] Care Team Providers Care Enrollment Specialist Name Role Phone Unavailable Primary Care Provider Unavailabl e Allergies Active Allergy Reactions Criticality Noted Date Comments Doxycycline Unknown 09/18/2024 Ibuprofen Unknown 09/18/2024 Methadone Unknown 09/19/2024 Milnacipran Unknown 09/19/2024 Morphine Unknown 09/18/2024 Penicillin Unknown 09/19/2024 Penicillins Unknown 09/18/2024 Sulfa (Sulfonamide Antibiotics) Unknown 04/2024 Terbinafine Unknown 09/19/2024 Trazodone Unknown 09/19/2024 Medications oxyCODONE-aceta minophen (PERCOCET) 7.5-325 mg Tablet Take 1 Tablet by mouth every 8 hours as needed. Active ascorbic acid, vitamin C, (VITAMIN C) 1,000 mg Tablet Take 1,000 mg by mouth daily. Active cholecalciferol , vitamin D3, 1,000 unit Take 1,000 Units by mouth daily. Active multivit,calc,m ez-HY-Z0-lycop (One-A-Day Men's Complete) 240 mcg-30 mcg- 300 mcg Tablet Take 1 Tablet by mouth daily. Active naloxone (Narcan) 4 mg/spray [place], Non-Aerosol Administer 4 mg in one nostril (alternate nostril with each dose) one time as needed for Other (See Comment) (narcotic side effects). 2 Active traMADoL (ULTRAM) 50 mg tablet Take 50 mg by mouth every 6 hours as needed for Pain. Active metFORMIN (GLUCOPHAGE) 1,000 mg tablet Take ONE-HALF tablet by mouth twice daily after meals for 1 week. Then take 1 tablet twice daily after meals thereafter. 200 Tablet 3 09/21/2024 1:00 PM ASSISTANT SHIFT SUPERVISOR 4 Active glimepiride (AMARYL) 2 mg tablet Take 1 Tablet (2 mg) by mouth daily with breakfast. DIABETES 100 Tablet 3 09/21/2024 1:00 PM ASSISTANT SHIFT SUPERVISOR 4 Active Active Problems Problem Noted Date Diagnosed Date Obesity 09/19/2024 H/O degenerative disc disease 09/19/2024 Chronic pain disorder 09/19/2024 Fibromyalgia 09/19/2024 Type 2 diabetes mellitus wit hout complication, without long-term current use of insulin 09/19/2024 Essential hypertension 09/19/2024 Obesity (BMI 30.0-34.9) 09/19/2024 Scrotal abscess 09/18/2024 Encounters Date Type Department Care Team Description 05/28/2025 External Device Data [facility] Provider, Abstract 05/28/2025 External Device Data [facility] Provider, Abstract 05/06/2025 External Device Data [facility] Provider, Abstract 04/30/2025 External Device Data [facility] Provider, Abstract 04/15/2025 External Device Data [facility] Provider, Abstract 04/15/2025 External Device Data [facility] Provider, Abstract 04/08/2025 External Device Data [facility] Provider, Abstract from Last 3 Months Social History Tobacco Use Types Packs/Day Years Used Date Smoking Tobacco: Unknown Tobacco Cessation:Counseling Given: Not Answered Sex and Gender Information Value Date Recorded Sex Assigned at Not on file Legal Sex Male 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[employer] Gender Identity Not on file Sexual Orientation Not on file Last Filed Vital Signs Vital Sign Reading Time Taken Comments Blood Pressure 147/88 09/21/2024 11:15 AM ASSISTANT SHIFT SUPERVISOR Pulse 80 09/21/2024 11:15 AM ASSISTANT SHIFT SUPERVISOR Temperature 36.3 C (97.4 F) 09/21/2024 11:15 AM ASSISTANT SHIFT SUPERVISOR Respiratory Rate 18 09/21/2024 11:15 AM ASSISTANT SHIFT SUPERVISOR Oxygen Saturation 98% 09/21/2024 11:15 AM ASSISTANT SHIFT SUPERVISOR Inhaled Oxygen Concentration - - Weight 108.9 kg (240 lb) 09/18/2024 10:39 PM ASSISTANT SHIFT SUPERVISOR Height 180.3 cm (5' 11 ) 09/18/2024 10:39 PM ASSISTANT SHIFT SUPERVISOR Body Mass Index 33.47 09/18/2024 10:39 PM ASSISTANT SHIFT SUPERVISOR Plan of Treatment Health Maintenance Due Date Last Done Comments DIABETES ANNUAL FOOT EXAM 1992 DIABETES ANNUAL RETINAL EXAM 1992 DIABETES MICROALBUMIN ANNUAL SCREEN 1992 LDL CHOLESTEROL ANNUAL 1992 DTAP/TDAP/TD VACCINES (1 - Tdap) 1993 HEPATITIS B VACCINES (1 of 3 - 19+ 3-dose series) 09/14 COLORECTAL SCREENING 2019 Colorectal Cancer Screening 2019 FIT-DNA Q 3 years 2019 FIT/FOBT Q 1 year 2019 Flex Sig/CT Colonography Q 5 years 2019 ZOSTER VACCINE (1 of 2) 2024 DIABETES HBA1C Q 6 MONTHS 03/19/2025 09/19/2024 INFLUENZA VACCINE (#1) 2025 Procedures Procedure Name Priority Date/Time Associated Diagnosis Comments HEMOGLOBIN A1C Routine 09/19/2024 6:26 AM ASSISTANT SHIFT SUPERVISOR from Last 3 Months or Most Recently Relevant to Health Maintenance Results * (ABNORMAL) HEMOGLOBIN A1C (09/19/2024 6:26 AM ASSISTANT SHIFT SUPERVISOR) HEMOGLOBIN A1C 12.0(H) <=5.6 % 09/20/2024 11:05 AM ASSISTANT SHIFT SUPERVISOR [facility] [employer] [facility] EST. AVG GLUCOSE, A1C 298 mg/dL 09/20/2024 11:05 AM [facility] Blood Venipuncture / Unknown 09/19/2024 6:26 AM ASSISTANT SHIFT SUPERVISOR 09/19/2024 6:50 AM ASSISTANT SHIFT SUPERVISOR Narrative [facility] [employer] [facility] - 09/20/2024 11:05 AM ASSISTANT SHIFT SUPERVISOR HGB A1C INTERPRETATION NORMAL: <5.7% PRE-DIABETES: 5.7 - 6.4% DIABETES: 6.5% OR GREATER us Delvin Smalls MD CHEMISTRY ORDERABLES Final Result [facility] CLIA # [id number] [address] [address] [place], [place] [address] from Last 3 Months or Most Recently Relevant to Health Maintenance Insurance [place]ICA[place] [employer] Medicaid Advance Directives For more information, please contact: [phone] * Full Code (Latest Code Status on File) Date Activated Date Inactivated Comments 09/18/2024 8:47 PM 09/21/2024 3:04 PM
--- OUTSIDE RECORDS SUMMARY | 2025-06-27 10:56 | XMS_ITS | Patient Health Record ---
Author Organization [email or web address] Address [address] [place], [place] [id number] Care Team Providers Care Bank Messenger Name Role Phone Rolando Galeano DO Primary Care Provider Unavail able Alis RIZZO, Serafin Unavailable [phone] Ekta Shaikh Unavailable [phone] Allergies Allergen (clinical drug ingredient) Drug/Non Drug Allergy documented on EMR Reaction Allergy Type Onset Date Status adhesive tape (uncoded) Unknown Allergy Active sulfa (uncoded) Unknown Allergy Acti ve ibuprofen Unknown Drug Allergy Active doxycycline doxycycline Unknown Drug Allergy Act opal morphine morphine Unknown Drug Allergy Active traZODone Unknown Drug Allergy Active terbinafine Unknown Drug Allergy Activ e penicillin Unknown Drug Allergy Active milnacipran Unknown Drug Allergy Activ e methadone methadone Unknown Drug Allergy Active Results Component Value Reference Range Notes Urine tox screen / MS if ind icated Reviewed date:12/05/2024 07:12:42 AM Interpretation:Consistent Performing Lab: Notes/Report: Consistent Urine tox screen / MS if ind icated Reviewed date:12/05/2024 07:12:42 AM Interpretation:Consistent Performing Lab: Notes/Report: Consistent Millennium Results Reviewed date:12/05/2024 07:11:51 AM Interpretation: Performing Lab:[id number] [place], [address] [address] [facility] [id number] Shreya Medeiros MD Notes/Report: [facility], [address], [facility] [address], [place] [address], , L ab Director: Shreya Medeiros MD, CLIA ID# [id number] OPIATES SCREEN negative 300 ng/mL Codeine Quantification negative 50 ng/mL Morphine Quantification negative 50 ng/mL Hydrocodone Quantification negative 50 ng/mL Norhydrocodone Quantification negative 50 ng/mL Hydromorphone Quantification negative 50 ng/mL OXYCODONE SCREEN positive 100 ng/mL Oxycodone Quantification positive-81.321 50 ng/mL Noroxycodone Quantification positive-1207.698 50 ng/mL Oxymorphone Quantification positive-335.392 50 ng/mL BUPRENORPHINE SCREEN negative 10 ng/mL Buprenorphine Quantification negative 5 ng/mL Norbuprenorphine Quantification negative 20 ng/mL FENTANYL SCREEN negative 2 ng/mL Fentanyl Quantification negative 1 ng/mL Norfentanyl Quantification negative 8 ng/mL METHADONE SCREEN negative 300 ng/mL Methadone Quantification negative 100 ng/mL EDDP (Methadone metabolite) Quantification negative 100 ng/mL TRAMADOL SCREEN positive 200 ng/mL Tramadol Quantification positive-919.899 100 ng/mL R-ofwezagwq-sbzgkjxr Quantification positive-7809.226 100 ng/mL R-Fycmggtua-Qettabqh Quantification positive-111.046 1 00 ng/mL Tapentadol Quantification negative 50 ng/mL BENZODIAZEPINES SCREEN negative 200 ng/mL Alpha-Hydroxyalprazolam Quantification negative 20 ng/mL 2-Cokqv-Ozetvqemyf Quantification negative 20 ng/m L Lorazepam Quantification negative 40 ng/mL Nordiazepam Quantification negative 40 ng/mL Temazepam Quantification negative 50 ng/mL Oxazepam Quantification negative 40 ng/mL AMPHETAMINES SCREEN negative 500 ng/mL Amphetamine Quantification negative 100 ng/mL Gabapentin Quantification negative 1000 ng/mL Pregabalin Quantification negative 400 ng/mL Naltrexone Quantification negative 10 ng/mL Naltrexol Quantification negative 10 ng/mL Naloxone Quantification negative 20 ng/mL Carisoprodol Quantification negative 100 ng/mL Meprobamate Quantification negative 100 ng/mL Cyclobenzaprine Quantification negative 50 ng/mL Methamphetamine Quantification negative 100 ng/mL COCAINE METABOLITE SCREEN negative 150 ng/mL Cocaine metabolite Quantification negative 50 ng/m L CANNABINOIDS (cTHC) SCREEN negative 50 ng/mL cTHC (Marijuana metabolite) Quantification negative 15 ng/mL MDMA SCREEN negative 500 ng/mL MDMA Quantification negative 100 ng/mL HEROIN METABOLITE SCREEN negative 10 ng/mL 6-LOLA (Heroin metabolite) Quantification negative 10 ng/mL PHENCYCLIDINE SCREEN negative 25 ng/mL Phencyclidine Quantification negative 10 ng/mL Acetyl fentanyl Quantification Fen Neg 2 ng/mL Acetyl norfentanyl Quantification Fen Neg 5 ng/mL Acryl fentanyl Quantification Fen Neg 1 ng/mL Carfentanil Quantification Fen Neg 2 ng/mL Para-fluorofentanyl Quantification Fen Neg 1 ng/m L 2-methyl AP-237 Quantification negative 10 ng/mL Brorphine Quantification negative 15 ng/mL Metonitazene Quantification negative 5 ng/mL 8-aminoclonazolam Quantification negative 10 ng/mL Etizolam Quantification negative 10 ng/mL Alpha-hydroxyetizolam Quantification negative 10 n g/mL Flualprazolam Quantification negative 10 ng/mL Flubromazolam Quantification negative 10 ng/mL FRR051 metabolite Quantification negative 10 ng/mL MIW243 metabolite Quantification negative 10 ng/mL RCS4 metabolite Quantification negative 10 ng/mL XLR11/UR144 metabolite negative 10 ng/mL 5F-ADB-M7 negative 10 ng/mL VA-HLRDWYSQ-X5 negative 10 ng/mL KJAF-VVEEXGIA-Y7 negative 10 ng/mL Eutylone Quantification negative 10 ng/mL Methylone Quantification negative 3 ng/mL Xylazine Quantification negative 10 ng/mL 4-hydroxy Xylazine Quantification negative 10 ng/m L Mitragynine (Kratom alkaloid) Quantification negative 1 ng/mL 3-JZ-Lahuvjnbntd (Kratom alk aloid) Quantification negative 1 ng/mL CREATININE normal-65.7 >20 mg/dL mg/dL OXIDANT normal-0 <200 ug/mL ug/mL PH normal-7.7 4.5 - 9.5 SPECIFIC GRAVITY normal-1.010 1.003 - 1.035 Embedded PDF Reviewed date:12/05/2024 07:12:14 AM Interpretation: Performing Lab: Notes/Report: Acetyl fentanyl: Fentanyl Negative. Acetyl norfentanyl: Fentanyl Negative. Acry l fentanyl: Fentanyl Negative. Carfentanil: Fentanyl Negative. Para-fluorofentan yl: Fentanyl Negative. [facility], [address], [facility] [address], [place] [address], , L ab Director: Shreya Medeiros MD, CLIA ID# [id number] Reason For Referral No Information Medications Medication SIG (Take, Route, Frequency, Duration) Notes Start Date End Date Status acetaminophen-oxycodo ne 325 mg-7.5 mg 1 tab orally Q4H prn severe pain (max 4/day; hold within 4H of planned sleep); Duration: 28 days Do not fill prior to 05/22/25. ICD-10: G89.29 03/27/2025 Active Narcan 4 mg/0.1 mL as directed intranasally once 01/11/2022 Active acetaminophen-oxycodo ne 325 mg-7.5 mg 1 tab orally Q4H prn severe pain (max 4/day; hold within 4H of planned sleep); Duration: 28 days ICD-10: G89.29 03/27/2025 Active traMADol 50 mg 1 tab orally Q4H prn pain (max 4/day; hold within 4H of planned sleep); Duration: 28 days ICD-10: G89.29 03/27/2025 Active acetaminophen-oxycodo ne 325 mg-7.5 mg 1 tab orally Q4H prn severe pain (max 4/day; hold within 4H of planned sleep); Duration: 28 days Do not fill prior to 04/24/25. ICD-10: G89.29 03/27/2025 Active Social History Tobacco Use: Social History Observation Description Date Details (start date - stop date) Current Smoker NA - NA Tobacco use: Question Answer Notes : current smoker Are you interested in quitting? Ready to quit How many cigarettes a day do you smoke? 31 or mo re How often do you smoke cigarettes? every day How soon after you wake up do you smoke your fir st cigarette? 31-60 min When did you start smoking? 1992 AUDIT-C (Standard) Question Answer Notes Did you have a drink containing alcohol in the p ast year? No Points 0 Interpretation Negative Problems Problem Type SNOMED Code ICD Code Onset Dates Problem Status W/U Status Risk Notes Problem Solitary sacroiliitis (653325462) Sacroiliitis, not elsewhere classified (M46.1) Active confirmed Problem Lumbosacral spondylosis without myelopathy (81380773) Spondylosis without myelopathy or radiculopathy, lumbar region (M47.816) Active confirmed Problem High risk drug monitoring status (277170659) MCFP (current) use of opiate analgesic (Z79.891) Active confirmed Problem Hypersomnia (79191808) Hypersomnia, unspecified (G47.10) Active confirmed Problem Sleep disorder (53939260) Other sleep disorders (G47.8) Active confirmed Problem Chronic pain (86621241) Other chronic pain (G89.29) Active confirmed Problem Chronic pain syndrome (131980723) Chronic pain syndrome (G89.4) Active confirmed Problem Shoulder joint pain (496246306) Pain in left shoulder (M25.512) Active confirmed Problem Degeneration of lumbar intervertebral disc (95592091) Other intervertebral disc degeneration, lumbar region (M51.36) Active confirmed Problem Cervicalgia (25696226) Cervicalgia (M54.2) Active confirmed Problem Fibromyalgia (165026263) Fibromyalgia (M79.7) Active confirmed Problem Long-term current use of drug therapy (993128402) 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) Active confirmed Problem Spinal stenosis of lumbar region (57301277) Spinal stenosis, lumbar region without neurogenic claudication (M48.061) Active confirmed Problem Muscle pain (51322574) Myalgia, other site (M79.18) Active confirmed Problem Pain in lumbar spine (129657851) Vertebrogenic low back pain (M54.51) Active confirmed Vital Signs Temperature 97.3 degrees Fahrenheit 03/27/2025 Oximetry 95 % 03/27/2025 Blood pressure diastolic 73 mm Hg 03/27/2025 Height 72 in 03/27/2025 Blood pressure systolic 130 mm Hg 03/27/2025 Weight 270 lbs 03/27/2025 BMI 36.61 kg/m2 03/27/2025 Encounters Encounter Location Date Provider Diagnosis [facility] [address] [place], [place] [id number] 08/08/2024 Ekta Back Vertebrogenic low ba ck pain M54.51 ; Other chronic pain G89.29 and Other sleep disorders G47.8 [facility] [address] [place], [place] [id number] 10/03/2024 Serafin Snell Vertebrogenic low ba ck pain M54.51 ; Other chronic pain G89.29 and Other sleep disorders G47.8 [facility] [address] [place], [place] [id number] 11/28/2024 Serafin Snell Vertebrogenic low ba ck pain M54.51 ; Other chronic pain G89.29 ; Other sleep disorders G47.8 and MCFP (current) use of opiate analgesic Z79.891 [facility] [address] [place], [place] [id number] 01/30/2025 Serafin Snell Vertebrogenic low ba ck pain M54.51 ; Other chronic pain G89.29 and Other sleep disorders G47.8 [facility] [address] [place], [place] [id number] 03/27/2025 Serafin Snell Vertebrogenic low ba ck pain M54.51 ; Other chronic pain G89.29 and Other sleep disorders G47.8 Assessments Encounter Date Diagnosis (ICD Code) Assessment Notes Treatment Notes Treatment Clinical Notes Section Notes 08/08/2024 Vertebrogenic low back pain (ICD-10 - M54.51) Chronic axial lumbosacral spine pain. 10/03/2024 Other chronic pain (ICD-10 - G89.29) Patient reports that taking his pain medication allows him to help out around his house. Plan to continue oral opioid medication management. 10/03/2024 Vertebrogenic low back pain (ICD-10 - M54.51) Chronic axial lumbosacral spine pain. 01/30/2025 Other chronic pain (ICD-10 - G89.29) Patient reports that taking his pain medication allows him to do the weekly grocery shopping for him, his son, and his parents. Plan to continue oral opioid medication management. 01/30/2025 Vertebrogenic low back pain (ICD-10 - M54.51) Chronic axial lumbosacral spine pain. 03/27/2025 Vertebrogenic low back pain (ICD-10 - M54.51) Chronic axial lumbosacral spine pain. 11/28/2024 Vertebrogenic low back pain (ICD-10 - M54.51) Chronic axial lumbosacral spine pain. Recommended updated imaging, deferred by patient: patient to notify this office if / when updated imaging is desired. 03/27/2025 Other chronic pain (ICD-10 - G89.29) Patient reports that taking his pain medication allows him to start Spring cleaning. Plan to continue oral opioid medicationat today's visit. 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 Plan to continue oral opioid medication management. 01/30/2025 Other sleep disorders (ICD-10 - G47.8) Plan to continue to restrict opioid use in relation to sleep for safety concerns. 10/03/2024 Other sleep disorders (ICD-10 - G47.8) Patient with history of untreated sleep disorder (likely sleep apnea - patient previously declined sleep study / possible treatment). Plan to continue to restrict opioid use in relation to sleep for safety concerns. 08/08/2024 Other sleep disorders (ICD-10 - G47.8) Plan to continue to restrict opioid use in relation to sleep for safety concerns. 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 Plan to continue oral opioid medication management. 03/27/2025 Other sleep disorders (ICD-10 - G47.8) Plan to continue to restrict opioid use in relation to sleep for safety concerns. 11/28/2024 Other sleep disorders (ICD-10 - G47.8) Patient with history of untreated sleep disorder (likely sleep apnea - patient previously declined sleep study / possible treatment). Plan to continue to restrict opioid use in relation to sleep for safety concerns. 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 This places the patient in the low risk category. Plan urine toxicology screen today with [facility] to monitor for presence of any unprescribed or illicit controlled substance(s), as well as prescribed oxycodone and tramadol (unable to test for tramadol in-office). 10/03/2024 Other The service was provided by CHARLINE Brunner, as part of the ongoing care plan established by Serafin Snell MD, who was present in the office for direct supervision during the encounter. 01/30/2025 Other The service was provided by CHARLINE Brunner, as part of the ongoing care plan established by Serafin Snell MD, who was present in the office for direct supervision during the encounter. 03/27/2025 Other The service was provided by CHARLINE Brunner, as part of the ongoing care plan established by Serafin Snell MD, who was present in the office for direct supervision during the encounter. Patient was provided with a letter at today's visit informing patient that this clinic is closing due to Dr. Snell's fci; see scanned document. Terminal prescriptions were given to the patient along with tapering instructions. 11/28/2024 Other The service was provided by CHARLINE Brunner, as part of the ongoing care plan established by Serafin Snell MD, who was present in the office for direct supervision during the encounter. 08/08/2024 Other Plan Of Treatment No Information Insurance Providers Payer Name Payer Address Payer Phone Subscriber Number Group Number Insured Name Patient Relationship to Insured Coverage Start Date Coverage End Date [place] [employer] [address] [place] [address] [id number] Elvis Saleh Self - patient is the insured Medical (General) History Medical History History ICD Code Chronic pain Low back pain Lumbar spondylosis, disc disease, and sp inal stenosis Sacroiliitis Pain of lumbar paraspinal muscles, chron ic myalgia Neck pain Arthritis Knee pain Fibromyalgia Renal stones Gastroesophageal reflux disease Anxiety and depression ADD Tinea cruris Costochondritis Tobacco use, possible COPD Sleep disorder, hypersomnia and restless legs are amongst patient's sleep related symptoms (patient declined to complete prior order for a sleep study and possible treatment) Obesity, moderate (history of morbid obe sity) Surgical History Surgery Date(Month/Year) Artificial testicle placed as a child Hernia repair Lithotripsy, 2004 Excision of scrotal mass, performed at [facility] in [place], [place], 09/18/24
--- OUTSIDE RECORDS SUMMARY | 2025-06-27 10:56 | XMS_ITS | Patient Health Record ---
Author Organization [facility] Address [address] [place] [address] Care Team Providers Care Sawsmith Name Role Phone Huber Poon Unavailable [phone] Reason For Referral Reason Eval and Treat Diagnosis 1 Chronic pain (G89.29 ) Referring Provider First Name Mahad Referring Provider Last Name Nirmala Referring Provider Speciality Family Med icine Referred Organization [facility] Referred Provider Nura Mota Ref[facility] [address] [facility], Referred Provider Specialty Pain Medicin e General Notes Keshia Lizarraga 05:53:20 PM CDT > mailing npp, scheduled pt Referral Priority Routine Problems Problem Type SNOMED Code ICD Code Onset Dates Problem Status W/U Status Risk Notes Problem Chronic pain syndrome (113959551) Chronic pain syndrome (G89.4) Active confirmed Problem Chronic pain (54880666) Chronic pain (G89.29) Active confirmed Plan Of Treatment Next Appt Details Provider Name:Jas Pinon, 07/03/2025 02:40:00 PM, [address] [place], [address], Insurance Providers Payer Name Payer Address Payer Phone Subscriber Number Group Number Insured Name Patient Relationship to Insured Coverage Start Date Coverage End Date [place] Medicaid [address] [place] [address] [phone] [id number] Elvis Saleh Self - patient is the insured
--- NOTE | 2025-06-27 11:38 | W.ED.MALEGU ---
HPI - Male Genitourinary General: Chief complaint: Urogenital-Male Stated complaint: Lower back pain and blood in urine Time Seen by Provider: 06/27/25 11:38 History of Present Illness: 49-year-old male with a history of nephrolithiasis presents emergency room with complaints of hematuria and low back pain reminiscent of previous episodes of nephrolithiasis. No fever sweats chills no dysuria urgency or frequency mild right-sided low back pain/flank pain. Associated symptoms: Deny dysuria Related Data Home Medications ?Medication ?Instructions ?Recorded ?Confirmed oxycodone-acetaminophen 7.5 mg-325 1 tab PO Q4H PRN pain 09/18/24 06/24/25 mg tablet tramadol 50 mg tablet 50 mg PO Q4H PRN pain 09/18/24 06/24/25 fluconazole 150 mg tablet 150 mg PO .QOD x14d 02/24/25 06/24/25 mupirocin 2 % topical ointment 1 applic topical TID PRN until 02/24/25 06/24/25 healed empagliflozin 10 mg tablet mg PO 03/11/25 06/24/25 (Jardiance) furosemide 20 mg tablet mg PO 03/11/25 06/24/25 potassium chloride 8 mEq meq PO 03/11/25 06/24/25 tablet,extended release tamsulosin 0.4 mg capsule mg PO 03/11/25 06/24/25 varenicline tartrate 1 mg tablet mg PO 03/11/25 06/24/25 Previous Rx's ?Medication ?Instructions ?Recorded clotrimazole-betamethasone 1 1 applic topical BID 4 weeks #45 03/11/25 %-0.05 % topical cream grams cephalexin 500 mg capsule 500 mg PO TID 7 days #21 caps 06/27/25 hydrocodone 5 mg-acetaminophen 325 1 tab PO Q6H PRN pain #20 tabs 06/27/25 mg tablet promethazine 25 mg tablet 25 mg PO Q6H PRN nausea and 06/27/25 vomiting #20 tabs tamsulosin 0.4 mg capsule 0.4 mg PO DAILY #14 caps 06/27/25 Allergies Allergy/AdvReac Type Severity Reaction Status Date / Time adhesive tape Allergy Unknown Verified 03/11/25 15:58 celecoxib (From Celebrex) Allergy Unknown Verified 03/11/25 15:58 cephalexin (From Keflex) Allergy Unknown Verified 03/11/25 15:58 doxycycline Allergy Unknown Verified 03/11/25 15:58 ibuprofen Allergy Unknown Verified 03/11/25 15:58 levofloxacin (From Levaquin) Allergy Unknown Verified 03/11/25 15:58 methadone Allergy ALGY-Anaphy Verified 03/11/25 15:58 laxis milnacipran (From Savella) Allergy Unknown Verified 03/11/25 15:58 morphine Allergy Unknown Verified 03/11/25 15:58 Penicillins Allergy unknown Verified 03/11/25 15:58 rofecoxib (From Vioxx) Allergy Unconscious Verified 03/11/25 15:58 Sulfa (Sulfonamide Allergy ALGY-Rash Verified 03/11/25 15:58 Antibiotics) terbinafine (From Lamisil) Allergy Unknown Verified 03/11/25 15:58 trazodone Allergy Unknown Verified 03/11/25 15:58 Review of Systems Const: Denies: fever(s) or chills Card: Denies: chest pain Resp: Denies: dyspnea GI: Denies: abdominal pain : Reports: flank pain (Right); Denies: dysuria, urinary frequency or urinary urgency Musc: Denies: neck pain or back pain Skin/Breast: Denies: rash PFSH ED PFSH: Medical History Chronic neck pain Chronic left shoulder pain Anxiety and depression Opioid contract exists Encounter for long-term use of opiate analgesic Fibromyalgia DDD (degenerative disc disease), lumbar Pain of paraspinal muscle Surgical History Status post laser lithotripsy of ureteral calculus Social History Smoking and tobacco/nicotine status: current every day tobacco/nicotine user cigarettes Packs smoked per day: 1.5 Alcohol intake: never Substance/Drug Use: never Physical Exam Const: GENERAL APPEARANCE: cooperative ORIENTATION/CONSCIOUSNESS: Yes awake, Yes oriented to person, Yes oriented to place and Yes oriented to time HENMT: COMMON NORMALS: normocephalic, atraumatic and hearing grossly normal bilaterally HEAD & SCALP: normocephalic and atraumatic Resp: COMMON NORMALS: normal respiratory effort, No retractions, No use of accessory muscles and clear to auscultation bilaterally AUSCULTATION: clear to auscultation bilaterally Cardio: COMMON NORMALS: regular rate, regular rhythm and No murmurs present (Cardio) RATE: regular rate RHYTHM: regular rhythm GI: COMMON NORMALS: Soft to palpation and No hepatosplenomegaly present AUSCULTATION: Yes normoactive bowel sounds PALPATION: Yes Soft to palpation, No Tenderness to palpation present (GI), No Guarding due to palpation present (GI) and Yes No hepatosplenomegaly present Extremity: COMMON NORMALS: normal to inspection, capillary refill normal, no clubbing, cyanosis or edema, no calf tenderness and no pedal edema Neuro: SENSORIUM/ORIENTATION: Yes oriented to person, Yes oriented to place and Yes oriented to time Skin: COMMON NORMALS: no rashes or lesions noted GENERAL SKIN EXAM: no rashes or lesions noted Course Vital Signs: Vital signs: Vital Signs Temperature 97.6 F 06/27/25 10:56 Pulse Rate 86 06/27/25 13:32 Respiratory Rate 16 06/27/25 10:56 Blood Pressure 144/82 06/27/25 13:32 Pulse Oximetry 98 06/27/25 13:32 Oxygen Delivery Me thod Room Air 06/27/25 12:37 MDM - Male Medical Decision Making Nephrolithiasis. Patient does have mild signs of UTI we will culture urine. Patient has allergies nearly every category of antibiotics reviewed this with him he remembers taking Keflex recently not having any trouble we will go ahead and put him on Keflex for now encouraged him to follow-up with his primary care doctor he probably should see a author agent to go through his allergy list and determine what he actually truly is allergic to. Discharge him home to strain urine hydrocodone promethazine for pain along with tamsulosin Medical Records I reviewed the patient's medical records. Lab Data I reviewed the patient's lab results. 06/27/25 11:28 06/27/25 11:28 Radiology Impressions Abdomen/Pelvis CT 06/27/25 12:05 IMPRESSION: Small LEFT proximal ureteral calculus measuring 3.3 mm from previous. LEFT distal ureter is decompressed. No hydronephrosis. Laboratory Results WBC 8.25 10^3/uL (3.29-11.43) 06/27/25 11:28 RBC 5.54 10^6/uL (3.85-5.65) 06/27/25 11:28 Hgb 18.20 g/dL (11.27-16.99) H 06/27/25 11:28 Hct 51.6 % (37-53) 06/27/25 11:28 MCV 93.1 fl (82-101) 06/27/25 11:28 MCH 32.9 pg (27-33) 06/27/25 11:28 MCHC 35.3 g/dL (30-55) 06/27/25 11:28 RDW 11.9 % (12.1-15.1) L 06/27/25 11:28 Plt Count 170 10^3/cmm (157-399) 06/27/25 11:28 MPV 10.7 fL (7.4-10.4) H 06/27/25 11:28 Neut % (Auto) 69.0 % 06/27/25 11:28 Lymph % (Auto) 22.3 % 06/27/25 11:28 [place] % (Auto) 7.4 % 06/27/25 11:28 Eos % (Auto) 0.4 % 06/27/25 11:28 Baso % (Auto) 0.5 % 06/27/25 11: Neut # (Auto) 5.70 10^3/uL (1.8-7.7) 06/27/25 11:28 Lymph # (Auto) 1.8 10^3/uL (0.8-4.8) 06/27/25 11:28 [place] # (Auto) 0.6 10^3/uL (0.2-0.9) 06/27/25 11:28 Eos # (Auto) 0.0 10^3/uL (0.0-0.8) 06/27/25 11:28 Baso # (Auto) 0.0 10^3/uL (0.0-0.1) 06/27/25 11: Nucleated RBC % (auto) 0 % 06/27/25 11: Nucleated RBCs # 0.0 /100WBC 06/27/25 11:28 Sodium 140 mmol/L (136-145) 06/27/25 11:28 Potassium 4.3 mmol/L (3.5-5.1) 06/27/25 11:28 Chloride 104 mmol/L (98-107) 06/27/25 11:28 Carbon Dioxide 25 mmol/L (22-29) 06/27/25 11:28 Anion Gap 15.3 (5-19) 06/27/25 11:28 BUN 6 mg/dL (6-20) 06/27/25 11:28 Creatinine 0.7 mg/dL (0.7-1.2) 06/27/25 11:28 GFR Calculation 119.4 mL/min (90-130) 06/27/25 11:28 Glucose 101 mg/dL (65-115) 06/27/25 11:28 Calculated Osmolality 288 mOsm/kg (285-295) 06/27/25 11:28 Calcium 9.4 mg/dL (8.5-10.5) 06/27/25 11:28 Total Bilirubin 0.6 mg/dL (0.15-1.2) 06/27/25 11:28 AST 15 U/L (0-40) 06/27/25 11:28 ALT 12 U/L (0-41) 06/27/25 11:28 Alkaline Phosphatase 106 U/L (40-130) 06/27/25 11:28 Total Protein 7.3 g/dL (6.6-8.7) 06/27/25 11:28 Albumin 4.5 g/dL (3.5-5.2) 06/27/25 11:28 Globulin 2.8 g/dL (1.3-4.6) 06/27/25 11:28 Urine Color Red (Yellow) A 06/27/25 11:45 Urine Appearance Turbid (CLEAR) A 06/27/25 11:45 Urine pH 5.0 (5-7) 06/27/25 11:45 Ur Specific [place] 1.023 (1.005-1.030) 06/27/25 11:45 Urine Protein 2+ (Negative) A 06/27/25 11:45 Urine Glucose (UA) Negative (Normal) 06/27/25 11:45 Urine Ketones Negative (Negative) 06/27/25 11:45 Urine Blood 3+ (Negative) A 06/27/25 11:45 Urine Nitrate Positive (Negative) A 06/27/25 11:45 Urine Bilirubin 1+ (Negative) H 06/27/25 11:45 Urine Urobilinogen 1.0 mg/dL (Negative) 06/27/25 11:45 Ur Leukocyte Esterase 2+ (Negative) A 06/27/25 11:45 Urine RBC >100 /hpf (0-2) H 06/27/25 11:45 Urine WBC 10-15 /hpf (0-5) H 06/27/25 11:45 Ur Squamous Epith Cells 0-4 /hpf (0-5) H 06/27/25 11:45 Calcium Oxalate Crystal 0-4 /hpf H 06/27/25 11:45 Amorphous Sediment Not Reportable 06/27/25 11:45 Urine Bacteria 1+ /hpf (NONE) H 06/27/25 11:45 Hyaline Casts 0-4 /lpf H 06/27/25 11:45 All radiology interpretation(s) finalized by discharge Discharge Plan Discharge Patient Disposition: Home Clinical Impression: Left nephrolithiasis Condition: Stable Prescriptions: New hydrocodone-acetaminophen 5-325 mg tablet 1 tab PO Q6H PRN (Reason: pain) Qty: 20 0RF promethazine 25 mg tablet 25 mg PO Q6H PRN (Reason: nausea and vomiting) Qty: 20 0RF tamsulosin 0.4 mg capsule 0.4 mg PO DAILY Qty: 14 0RF cephalexin 500 mg capsule 500 mg PO TID 7 Days Qty: 21 0RF No Action clotrimazole-betamethasone 1-0.05 % cream 1 applic topical BID 28 Days Qty: 45 3RF varenicline tartrate 1 mg tablet PO furosemide 20 mg tablet PO potassium chloride 8 mEq tablet extended release PO tamsulosin 0.4 mg capsule PO Jardiance 10 mg tablet PO tramadol 50 mg tablet 50 mg PO Q4H MDD 4 per day PRN (Reason: pain) oxycodone-acetaminophen 7.5-325 mg tablet 1 tab PO Q4H MDD 4 per day PRN (Reason: pain) fluconazole 150 mg tablet 150 mg PO .QOD mupirocin 2 % ointment 1 applic TOPICAL TID PRN (Reason: until healed) Discharge Orders: Discharge ED (Routine); Ordered 06/27/25 Ordered By: Clarence Scott Referrals: Mahad Silvestre MD [Primary Care Provider, Family Practice] Patient Instructions: Kidney Stones (ED), How to Strain Your Urine (ED), Opioid Safety, Pain Management, Patient Portal & Summer Instructions Activity Restrictions/Additional Instructions: Thank you for choosing [facility] for your healthcare needs today. It is very important that you follow up as instructed or that you return to the Emergency Department should you have concerns or if your condition changes or worsens in any way. You were seen in the emergency room with complaints of flank pain. CT shows you a 3.3 mm kidney stone. You are also noted have a mild bladder infection. We discussed her allergy list she was related that the most recent antibiotics you are prescribed did not have problems with that was Keflex that is on your allergy list after discussion we decided to go ahead and treat you with that. Also gave you pain medications tamsulosin alone or promethazine to use as needed. Recommend you strain your urine follow-up with the urologist you have seen previously. 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
[2025-06-27 11:41] LABS: Hematocrit 51.6 % (37-53); Hemoglobin 18.20 g/dL (11.27-16.99); Mean Corpuscular HGB Conc 35.3 g/dL (30-55); Mean Corpuscular Hemoglobin 32.9 pg (27-33); Mean Corpuscular Volume 93.1 fl (82-101); Nucleated Red Blood Cells % 0 %; Platelet Count 170 10^3/cmm (157-399); Red Blood Count 5.54 10^6/uL (3.85-5.65); White Blood Count 8.25 10^3/uL (3.29-11.43)
[2025-06-27 12:00] LABS: Glucose Urine UA Negative (Normal); Nitrate Urine Positive (Negative); Specific Gravity, Urine 1.023 (1.005-1.030)
[2025-06-27 12:05] LABS: Alanine Aminotransferase 12 U/L (0-41); Albumin Level 4.5 g/dL (3.5-5.2); Alkaline Phosphatase 106 U/L (40-130); Anion Gap 15.3 (5-19); Aspartate Amino Transferase 15 U/L (0-40); Blood Urea Nitrogen 6 mg/dL (6-20); Calcium 9.4 mg/dL (8.5-10.5); Carbon Dioxide 25 mmol/L (22-29); Chloride 104 mmol/L (98-107); Creatinine Clr Calc Pharmacy 163.8179; Globulin 2.8 g/dL (1.3-4.6); Glucose 101 mg/dL (65-115); Osmolality Calculated 288 mOsm/kg (285-295); Potassium 4.3 mmol/L (3.5-5.1); Sodium 140 mmol/L (136-145); Total Protein 7.3 g/dL (6.6-8.7)
--- NOTE | 2025-06-27 12:05 | CT_ITS ---
WS: [id number] CT ABDOMEN PELVIS TECHNIQUE: Noncontrast CT of the abdomen and pelvis with coronal and sagittal reformatted images. CLINICAL INFORMATION: flank pain COMPARISON: 2024 DLP: 1056.[address] scans at [facility] use at least one of these dose optimization techniques: automated exposure control; mA and/or kV adjustment per patient size (includes targeted exams where dose is matched to clinical indication); or iterative reconstruction. FINDINGS: Small LEFT proximal ureteral calculus measuring 3.3 mm. LEFT distal ureter is decompressed. No hydronephrosis. No hydronephrosis in the RIGHT kidney. No obstructing RIGHT renal or ureteral calculi. Normal noncontrast liver. No noncontrast spleen. Small esophageal hiatal hernia. Adrenal glands are normal. Layering sludge or tiny calculi in the gallbladder. Tiny fat-containing umbilical hernia. Normal sigmoid colon. Few reactive inguinal lymph nodes. CT/CT kidney stone [id number] IMPRESSION: Small LEFT proximal ureteral calculus measuring 3.3 mm from previous. LEFT dis denzel ureter is decompressed. No hydronephrosis.
[2025-06-27 12:37] VITALS: PULSE 85; O2SAT 95
[2025-06-27 12:38] LABS: Add Urine Microscopic? YES; UA Manual Slide Review YES; UA Slide Review UA Slide Review Perf
[2025-06-27 13:32] VITALS: BP 144/82; PULSE 86; O2SAT 98
== END 2025-06-27 13:33 | disposition home or self-care (01) ==
PROVIDERS: Emergency Medicine; Emergency Provider Family Medicine; PCP Family Medicine
DX: N20.0 Calculus of kidney (principal); F17.210 Nicotine dependence, cigarettes, uncomplicated
CPT/HCPCS: 36415; 74176; 80053; 81001; 85025; 87086; 96374; 96375; 99285; J1885

== ENCOUNTER 2025-08-01 15:55 | Emergency (ER) | payer MEDICAID, SELFPAY ==
[2025-08-01 15:57] VITALS: BP 133/79; PULSE 98; RESP 14; TEMP 36.7; O2SAT 97; BMI 32.8
--- OUTSIDE RECORDS SUMMARY | 2025-08-01 16:00 | XMS_ITS | Clinical Summary ---
Author Organization [facility] Address [address] [place] [address] Care Team Providers Care Shingle Sawyer Name Role Phone Unavailable Primary Care Provider [...] 1,000 Units by mouth daily. Active multivit,calc,m [id number]-lycop (One-A-Day Men's Complete) 240 mcg-30 mcg- 300 mcg Tablet Take 1 Tablet by mouth daily. Active naloxone (Narcan) 4 mg/spray [place], Non-Aerosol Administer 4 mg in one nostril [...] thereafter. 200 Tablet 3 09/21/2024 1:00 PM [employer]GEANT 4 Active glimepiride (AMARYL) 2 mg tablet Take 1 Tablet (2 mg) by mouth daily with breakfast. DIABETES 100 Tablet 3 09/21/2024 1:00 PM [employer]GE[employer] 4 Active Active Problems Problem Noted Date Diagnosed Date Obesity 09/19/2024 H/O degenerative disc disease 09/19/2024 Chronic pain disorder 09/19/2024 Fibromyalgia 09/19/2024 Type 2 diabetes mellitus wit hout complication, without long-term current use of insulin 09/19/2024 Essential hypertension 09/19/2024 Obesity (BMI 30.0-34.9) 09/19/2024 Scrotal abscess 09/18/2024 Encounters Date Type Department Care Team Description 07/29/2025 External Device Data [facility] Provider, Abstract 07/22/2025 External Device Data [facility] Provider, Abstract 07/22/2025 External Device Data [facility] Provider, Abstract 07/22/2025 External Device Data [facility] Provider, Abstract 07/15/2025 External Device Data [facility] Provider, Abstract 05/28/2025 External Device Data [facility] Provider, Abstract 05/28/2025 External Device Data [facility] Provider, Abstract 05/06/2025 External Device Data [facility] Provider, Abstract from Last 3 Months Social History Tobacco Use Types Packs/Day Years Used Date Smoking Tobacco: Unknown Tobacco Cessation:Counseling Given: Not Answered Feeling Safe Answer Date Recorded Are you in a relationship wi th someone who hurts you emotionally and/or physically? No 09/18/2024 Food Insecurity Answer Date Recorded Patient needs follow up regardin 03/05/2025 Transportation Needs Answer Date Record ed Patient needs follow up regardin 03/05/2025 Housing Stability Answer Date Recorded Social/Environmental Concerns No concerns Utility Needs Answer Date Recorded Patient needs follow up regardin 03/05/2025 Sex and Gender Information Value Date Recorded Sex Assigned at Not on file Legal Sex Male 4:33 AM PRECINCT I [employer]GE[employer] Gender Identity Not on file Sexual Orientation Not on file Last Filed Vital Signs Vital Sign Reading Time Taken Comments Blood Pressure 147/88 09/21/2024 11:15 AM [employer] Pulse 80 09/21/2024 11:15 AM [employer] Temperature 36.3 C (97.4 F) 09/21/2024 11:15 AM [employer] Respiratory Rate 18 09/21/2024 11:15 AM [employer] Oxygen Saturation 98% 09/21/2024 11:15 AM [employer]GE[employer] Inhaled Oxygen Concentration - - Weight 108.9 kg (240 lb) 09/18/2024 10:39 PM [employer] Height 180.3 cm (5' 11 ) 09/18/2024 10:39 PM [employer] Body Mass Index 33.47 09/18/2024 10:39 PM [employer]GE[employer] Plan of Treatment Health Maintenance Due Date [...] Comments HEMOGLOBIN A1C Routine 09/19/2024 6:26 AM [employer]GE[employer] from Last 3 Months or Most Recently Relevant to Health Maintenance Results * (ABNORMAL) HEMOGLOBIN A1C (09/19/2024 6:26 AM [employer]IN[employer] I [employer]GE[employer]) HEMOGLOBIN A1C 12.0(H) <=5.6 % 09/20/2024 11:05 AM [facility] EST. AVG GLUCOSE, A1C 298 mg/dL 09/20/2024 11:05 AM 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 [address] from Last 3 Months or Most Recently Relevant to Health Maintenance Insurance [place]ICAID [place] [employer] Medicaid Advance Directives For more information, please contact: [phone] * Full Code (Latest Code Status on File) Date Activated Date Inactivated Comments 09/18/2024 8:47 PM 09/21/2024 3:04 PM
--- OUTSIDE RECORDS SUMMARY | 2025-08-01 16:00 | XMS_ITS | Encounter Summary ---
Author Organization [facility] Address 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
--- NOTE | 2025-08-01 16:04 | CTR_ITS ---
PROCEDURE INFORMATION: Exam: CT Abdomen And Pelvis Without Contrast Exam date and time: 08/01/2025 4:35 PM Age: 49 years old Clinical indication: Abdominal pain; HX of renal calculus, recent of HX of left renal stone now right flank pain; Additional info: R flank pain TECHNIQUE: Imaging protocol: Computed tomography of the abdomen and pelvis without contrast. Radiation optimization: All CT scans at this facility use at least one of these dose optimization techniques: automated exposure control; mA and/or kV adjustment per patient size (includes targeted exams where dose is matched to clinical indication); or iterative reconstruction. COMPARISON: CT kidney stone [id number] 06/27/2025 12:27 PM RADIATION DOSE METRICS: Total DLP (mGy-cm): 956.43 FINDINGS: Liver: Normal. No mass. Gallbladder and biliary ducts: Cholelithiasis. Pancreas: Normal. No ductal dilation. Spleen: Mild splenomegaly. Adrenal glands: Normal. No mass. Kidneys and ureters: There is a 3 mm obstructing calculus in the proximal left ureter causing [id number] upstream hydroureteronephrosis. Stomach and bowel: Colonic diverticulosis. No bowel obstruction. Appendix: No evidence of appendicitis. Intraperitoneal space: Unremarkable. No free air. No significant fluid collection. Vasculature: Unremarkable. No abdominal aortic aneurysm. Lymph nodes: Unremarkable. No enlarged lymph nodes. Urinary bladder: Unremarkable as visualized. Reproductive: Mild prostatomegaly. Bones/joints: Unremarkable. No acute fracture. Soft tissues: Unremarkable. CT/CT kidney stone [id number] IMPRESSION: 3 mm obstructing calculus in the proximal left ureter causing [id number] upstream hydroureteronephrosis.
--- NOTE | 2025-08-01 16:16 | W.ED.MALEGU ---
HPI - Male Genitourinary General: Chief complaint: Urogenital-Male Stated complaint: L side Kidney Pain Time Seen by Provider: 08/01/25 15:59 Source: patient Mode of arrival: ambulatory Limitations: no limitations History of Present Illness: 49-year-old male states he been having right sided flank pain that started this morning. He states pains been sharp in nature rates it a 6 out of 10 he denies any fever denies any dysuria he denies any vomiting or diarrhea. Has had a history of kidney stones before Associated symptoms: Deny nausea or vomiting Related Data Home Medications ?Medication ?Instructions ?Recorded ?Confirmed oxycodone-acetaminophen 7.5 mg-325 1 tab PO Q4H PRN pain 09/18/24 06/24/25 mg tablet tramadol 50 mg tablet 50 mg PO Q4H PRN pain 09/18/24 06/24/25 fluconazole 150 mg tablet 150 mg PO .QOD x14d 02/24/25 06/24/25 mupirocin 2 % topical ointment 1 applic topical TID PRN until 02/24/25 06/24/25 healed empagliflozin 10 mg tablet mg PO 03/11/25 06/24/25 (Jardiance) furosemide 20 mg tablet mg PO 03/11/25 06/24/25 potassium chloride 8 mEq meq PO 03/11/25 06/24/25 tablet,extended release tamsulosin 0.4 mg capsule mg PO 03/11/25 06/24/25 varenicline tartrate 1 mg tablet mg PO 03/11/25 06/24/25 Previous Rx's ?Medication ?Instructions ?Recorded clotrimazole-betamethasone 1 1 applic topical BID 4 weeks #45 03/11/25 %-0.05 % topical cream grams hydrocodone 5 mg-acetaminophen 325 1 tab PO Q6H PRN pain #20 tabs 06/27/25 mg tablet promethazine 25 mg tablet 25 mg PO Q6H PRN nausea and 06/27/25 vomiting #20 tabs tamsulosin 0.4 mg capsule 0.4 mg PO DAILY #14 caps 06/27/25 hydrocodone 5 mg-acetaminophen 325 1 tab PO Q6H PRN pain #14 tabs 08/01/25 mg tablet ondansetron 4 mg disintegrating 4 mg PO Q6H PRN nausea and 08/01/25 tablet vomiting #14 tabs tamsulosin 0.4 mg capsule (Flomax) 0.4 mg PO DAILY #5 caps 08/01/25 Allergies Allergy/AdvReac Type Severity Reaction Status Date / Time adhesive tape Allergy Unknown Verified 08/01/25 16:01 celecoxib (From Celebrex) Allergy Unknown Verified 08/01/25 16:01 cephalexin (From Keflex) Allergy Unknown Verified 08/01/25 16:01 doxycycline Allergy Unknown Verified 08/01/25 16:01 ibuprofen Allergy Unknown Verified 08/01/25 16:01 levofloxacin (From Levaquin) Allergy Unknown Verified 08/01/25 16:01 methadone Allergy ALGY-Anaphy Verified 08/01/25 16:01 laxis milnacipran (From Savella) Allergy Unknown Verified 08/01/25 16:01 morphine Allergy Unknown Verified 08/01/25 16:01 Penicillins Allergy unknown Verified 08/01/25 16:01 rofecoxib (From Vioxx) Allergy Unconscious Verified 08/01/25 16:01 Sulfa (Sulfonamide Allergy ALGY-Rash Verified 08/01/25 16:01 Antibiotics) terbinafine (From Lamisil) Allergy Unknown Verified 08/01/25 16:01 trazodone Allergy Unknown Verified 08/01/25 16:01 Review of Systems Const: Denies: fever(s), chills, body aches or change in appetite ENMT: Denies: throat pain or dental pain Card: Denies: chest pain Resp: Denies: dyspnea GI: Denies: abdominal pain, nausea, vomiting or diarrhea : Reports: flank pain Musc: Denies: neck pain or back pain Skin/Breast: Denies: rash Neuro: Denies: headache(s) PFSH ED PFSH: Medical History Chronic neck pain Chronic left shoulder pain Anxiety and depression Opioid contract exists Encounter for long-term use of opiate analgesic Fibromyalgia DDD (degenerative disc disease), lumbar Pain of paraspinal muscle Surgical History Status post laser lithotripsy of ureteral calculus Social History Smoking and tobacco/nicotine status: current every day tobacco/nicotine user cigarettes Packs smoked per day: 1.5 Alcohol intake: never Substance/Drug Use: never Physical Exam Const: COMMON NORMALS: no acute distress, patient oriented x3 and healthy appearing HENMT: COMMON NORMALS: normocephalic and atraumatic HEAD & SCALP: normocephalic and atraumatic Eye: COMMON NORMALS: conjunctivae normal CONJUNCTIVA: Yes conjunctivae normal Neck/C-Spine: COMMON NORMALS: full ROM Chest: COMMONS NORMALS: normal inspection of the chest Resp: COMMON NORMALS: normal respiratory effort Cardio: COMMON NORMALS: regular rate, regular rhythm and No murmurs present (Cardio) RATE: regular rate RHYTHM: regular rhythm GI: COMMON NORMALS: Normal to inspection, nondistended, normoactive bowel sounds present, Soft to palpation, non-tender and no masses PALPATION: Yes Soft to palpation Extremity: COMMON NORMALS: normal to inspection and full ROM Neuro: COMMON NORMALS: patient oriented x3, moves all extremities and no focal motor deficits Psych: COMMON NORMALS: mental status grossly normal, Normal thought process present and cooperative THOUGHT PROCESS: Normal thought process present Skin: COMMON NORMALS: no rashes or lesions noted and no wounds GENERAL SKIN EXAM: no rashes or lesions noted Course Vital Signs: Vital signs: Vital Signs Temperature 98.0 F 08/01/25 15:57 Pulse Rate 78 08/01/25 16:52 Respiratory Rate 14 08/01/25 15:57 Blood Pressure 133/79 08/01/25 15:57 Pulse Oximetry 95 08/01/25 16:52 Oxygen Delivery Me thod Room Air 08/01/25 15:57 MDM - Male Medical Decision Making Patient presents here with flank pain does have a kidney stone he has no signs of infection reviewed his labs which were normal. No signs of pyelonephritis as his pains improved here will DC him with a strainer will prescribe him hydrocodone along with the medicine and Flomax he is to follow-up with urology return if worsening he understands agrees to plan. Lab Data 08/01/25 16:23 08/01/25 16:23 Radiology Impressions Abdomen/Pelvis CT 08/01/25 16:04 IMPRESSION: 3 mm obstructing calculus in the proximal left ureter causing [id number] upstream hydroureteronephrosis. Laboratory Results WBC 11.65 10^3/uL (3.29-11.43) H 08/01/25 16:23 RBC 5.66 10^6/uL (3.85-5.65) H 08/01/25 16:23 Hgb 18.50 g/dL (11.27-16.99) H 08/01/25 16:23 Hct 51.8 % (37-53) 08/01/25 16:23 MCV 91.5 fl (82-101) 08/01/25 16:23 MCH 32.7 pg (27-33) 08/01/25 16:23 MCHC 35.7 g/dL (30-55) 08/01/25 16:23 RDW 12.3 % (12.1-15.1) 08/01/25 16:23 Plt Count 191 10^3/cmm (157-399) 08/01/25 16:23 MPV 10.5 fL (7.4-10.4) H 08/01/25 16:23 Neut % (Auto) 74.9 % 08/01/25 16:23 Lymph % (Auto) 16.9 % 08/01/25 16:23 Lamb % (Auto) 7.2 % 08/01/25 16:23 Eos % (Auto) 0.1 % 08/01/25 16:23 Baso % (Auto) 0.6 % 08/01/25 16:23 Neut # (Auto) 8.73 10^3/uL (1.8-7.7) H 08/01/25 16:23 Lymph # (Auto) 2.0 10^3/uL (0.8-4.8) 08/01/25 16:23 Lamb # (Auto) 0.8 10^3/uL (0.2-0.9) 08/01/25 16:23 Eos # (Auto) 0.0 10^3/uL (0.0-0.8) 08/01/25 16:23 Baso # (Auto) 0.1 10^3/uL (0.0-0.1) 08/01/25 16:23 Nucleated RBC % (auto) 0 % 08/01/25 16:23 Nucleated RBCs # 0.0 /100WBC 08/01/25 16:23 Sodium 138 mmol/L (136-145) 08/01/25 16:23 Potassium 4.0 mmol/L (3.5-5.1) 08/01/25 16:23 Chloride 102 mmol/L (98-107) 08/01/25 16:23 Carbon Dioxide 25 mmol/L (22-29) 08/01/25 16:23 Anion Gap 15.0 (5-19) 08/01/25 16:23 BUN 9 mg/dL (6-20) 08/01/25 16:23 Creatinine 0.6 mg/dL (0.7-1.2) L 08/01/25 16:23 GFR Calculation 142.6 mL/min (90-130) H 08/01/25 16:23 Glucose 84 mg/dL (65-115) 08/01/25 16:23 Calculated Osmolality 284 mOsm/kg (285-295) L 08/01/25 16:23 Calcium 9.6 mg/dL (8.5-10.5) 08/01/25 16:23 Total Bilirubin 0.7 mg/dL (0.15-1.2) 08/01/25 16:23 AST 18 U/L (0-40) 08/01/25 16:23 ALT 13 U/L (0-41) 08/01/25 16:23 Alkaline Phosphatase 123 U/L (40-130) 08/01/25 16:23 Total Protein 7.8 g/dL (6.6-8.7) 08/01/25 16:23 Albumin 4.6 g/dL (3.5-5.2) 08/01/25 16:23 Globulin 3.2 g/dL (1.3-4.6) 08/01/25 16:23 Lipase 55 U/L (13-60) 08/01/25 16:23 Urine Color [place] (Yellow) A 08/01/25 16:14 Urine Appearance Cloudy (CLEAR) A 08/01/25 16:14 Urine pH 5.0 (5-7) 08/01/25 16:14 Ur Specific [place] 1.015 (1.005-1.030) 08/01/25 16:14 Urine Protein 1+ (Negative) A 08/01/25 16:14 Urine Glucose (UA) Negative (Normal) 08/01/25 16:14 Urine Ketones Trace (Negative) 08/01/25 16:14 Urine Blood 3+ (Negative) A 08/01/25 16:14 Urine Nitrate Negative (Negative) 08/01/25 16:14 Urine Bilirubin Negative (Negative) 08/01/25 16:14 Urine Urobilinogen 1.0 mg/dL (Negative) 08/01/25 16:14 Ur Leukocyte Esterase Trace (Negative) A 08/01/25 16:14 Urine RBC >100 /hpf (0-2) H 08/01/25 16:14 Urine WBC 0-5 /hpf (0-5) 08/01/25 16:14 Ur Squamous Epith Cells 0-5 /hpf (0-5) 08/01/25 16:14 Amorphous Sediment Not Reportable 08/01/25 16:14 Urine Bacteria None seen /hpf (NONE) 08/01/25 16:14 Hyaline Casts 2.46 /lpf 08/01/25 16:14 All radiology interpretation(s) finalized by discharge Discharge Plan Discharge Patient Disposition: Home Clinical Impression: Kidney stone Condition: Stable Prescriptions: New hydrocodone-acetaminophen 5-325 mg tablet 1 tab PO Q6H PRN (Reason: pain) Qty: 14 0RF ondansetron 4 mg tablet,disintegrating 4 mg PO Q6H PRN (Reason: nausea and vomiting) Qty: 14 0RF tamsulosin [Flomax] 0.4 mg capsule 0.4 mg PO DAILY Qty: 5 0RF No Action clotrimazole-betamethasone 1-0.05 % cream 1 applic topical BID 28 Days Qty: 45 3RF varenicline tartrate 1 mg tablet PO furosemide 20 mg tablet PO potassium chloride 8 mEq tablet extended release PO tamsulosin 0.4 mg capsule PO Jardiance 10 mg tablet PO tramadol 50 mg tablet 50 mg PO Q4H MDD 4 per day PRN (Reason: pain) oxycodone-acetaminophen 7.5-325 mg tablet 1 tab PO Q4H MDD 4 per day PRN (Reason: pain) fluconazole 150 mg tablet 150 mg PO .QOD mupirocin 2 % ointment 1 applic TOPICAL TID PRN (Reason: until healed) hydrocodone-acetaminophen 5-325 mg tablet 1 tab PO Q6H PRN (Reason: pain) Qty: 20 0RF promethazine 25 mg tablet 25 mg PO Q6H PRN (Reason: nausea and vomiting) Qty: 20 0RF tamsulosin 0.4 mg capsule 0.4 mg PO DAILY Qty: 14 0RF Discharge Orders: Discharge ED (Routine); Ordered 08/01/25 Ordered By: Steph Alberto Referrals: Mahad Silvestre MD [Primary Care Provider, [facility]] Discharge Diet: Advance as tolerated Discharge Activity: Resume usual activity Patient Instructions: Kidney Stones (ED), Opioid Safety Print Language: Norwegian Coding Level of Care Code ED [employer] for Ludwig Waters
[2025-08-01] MEDS: HYDROmorphone 0.5 MG/0.5 ML INJ IVP (16:22)
[2025-08-01 16:25] LABS: Glucose Urine UA Negative (Normal); Nitrate Urine Negative (Negative); Specific Gravity, Urine 1.015 (1.005-1.030)
[2025-08-01 16:27] LABS: Add Urine Microscopic? YES
[2025-08-01 16:27] LABS: Hematocrit 51.8 % (37-53); Hemoglobin 18.50 g/dL (11.27-16.99); Mean Corpuscular HGB Conc 35.7 g/dL (30-55); Mean Corpuscular Hemoglobin 32.7 pg (27-33); Mean Corpuscular Volume 91.5 fl (82-101); Nucleated Red Blood Cells % 0 %; Platelet Count 191 10^3/cmm (157-399); Red Blood Count 5.66 10^6/uL (3.85-5.65); White Blood Count 11.65 10^3/uL (3.29-11.43)
[2025-08-01 16:51] LABS: Alanine Aminotransferase 13 U/L (0-41); Albumin Level 4.6 g/dL (3.5-5.2); Alkaline Phosphatase 123 U/L (40-130); Anion Gap 15.0 (5-19); Aspartate Amino Transferase 18 U/L (0-40); Blood Urea Nitrogen 9 mg/dL (6-20); Calcium 9.6 mg/dL (8.5-10.5); Carbon Dioxide 25 mmol/L (22-29); Chloride 102 mmol/L (98-107); Creatinine Clr Calc Pharmacy 182.9533; Globulin 3.2 g/dL (1.3-4.6); Glucose 84 mg/dL (65-115); Lipase 55 U/L (13-60); Osmolality Calculated 284 mOsm/kg (285-295); Potassium 4.0 mmol/L (3.5-5.1); Sodium 138 mmol/L (136-145); Total Protein 7.8 g/dL (6.6-8.7)
[2025-08-01 16:52] VITALS: PULSE 78; O2SAT 95
[2025-08-01 17:27] VITALS: BP 118/73; PULSE 77; O2SAT 92
--- NOTE | 2025-08-04 15:38 | DCPLANNER ---
faxed urology referral to [facility]. pushed images.
== END 2025-08-01 17:28 | disposition home or self-care (01) ==
PROVIDERS: Emergency Provider Emergency Medicine; PCP Family Medicine
DX: N20.0 Calculus of kidney (principal); Z87.442 Personal history of urinary calculi; F17.210 Nicotine dependence, cigarettes, uncomplicated
CPT/HCPCS: 74176; 80053; 81001; 83690; 85025; 87086; 96361; 96374; 99285; J1171; J7030

== ENCOUNTER 2025-08-14 15:03 | Emergency (ER) | payer MEDICAID, SELFPAY ==
--- OUTSIDE RECORDS SUMMARY | 2025-08-06 09:20 | XMS_ITS ---
Author Organization [facility] Address [address] [place] [address] Care Team Providers Care Business Asst Name Role Phone Mahad Silvestre MD Primary Care Provider Jas Devi Unavailable [phone] Results Component Value Reference Range Flag Notes Urine Drug Screen (cup read) - 50347 Reviewed date:08/06/2025 03:30:20 PM Interpretation:negative all Performing Lab: Notes/Report: negative all Urine Confirmation Panel (in strument) - [id number] Reviewed date:08/12/2025 12:35:27 PM Interpretation: Performing Lab: [...] Encounters Encounter Location Date Provider Diagnosis Formerly [facility] [place] [address] [place] [address] 08/06/2025 Jas Pinon Chronic pain syndrom e G89.4 ; Lumbar radiculopathy M54.16 ; Lumbar spondylosis M47.816 ; Abnormality of gait and mobility R26.9 and long-term (current) use of opiate analgesic Z79.891 Assessments [...] gait and mobility (ICD-10 - R26.9) 08/06/2025 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 (ICD-10 - [...] Name:Jas Pinon, 08/27/2025 02:00:00 PM, [address] [place], [address], History and Physical Notes * HPI (History of Present Illness) Category Sub-Category Detail Notes Category Not es Pain Details Pain Location Generalized (all over) Quality Aching, Burning, Deloris p, Dull, Numbness, Ziff-thm-nwzswsu, Sharp, Shooting, Spreading, Stabbing, Throbbing, Tingling Severity [...] Drug Screen will be sent for confirmation [place] Prescription Monitoring Program [place] PDMP, found to [...] * Elvis SHAIKH EDOB:[birth year] (49 yo M)Acc No.[id number]:08/06/2025 Progress Notes Patient: Elvis Daniels Provider: Saundra Pinon D.O. 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 Quality A geraldine, Burning, Deep, Dull, Numbness, Qpss-kus-rmfggym, Sharp, Shooting, Spreading, Stabbing, Throbbing, Tingling. Severity [...] w ill be sent for confirmation . [place] Monitoring [place] PDMP, found [...] S ocial History Verified. * Medications: N dm-GzxddgudmCHUAHE-Lzuenhpkdlxwp 7.5-325 MG Tablet 1 tablet as needed [...] AB: Urine Drug Screen (cup read) - 74863 (Collection Date & Time - 08/06/2025) n egative all L AB: Urine Confirmation Panel (instrument) - [id number] (Collection Date & Time - 08/06/2025) 3. O thers Notes: IGraciela, am scribing for Dr. Jas Pinon. I, Dr. Jas Pinon, personally performed the services described in this documentation, as scribed by Graciela Peterson, and it is both accurate and complete. * Procedure Codes: 8 0305 DRUG TEST PRSMV DIR OPT OBS [id number] DRUG TEST PRSMV CHEM ANLYZR * Follow Up: 3 Weeks Billing Information: * Procedure Codes: 80842 DRUG [place]. [address] DRUG TEST PRSMV CHEM ANLYZR. Care Plan Details* * Electronic signature of Jas Pinon DO on 08/14/2025 at 03:07 PM CDT Sign off status: Pending * Provider: Saundra Pinon D.O. Date: 0 08/06/2025 Generated for Gregory alvarez/Julia/Tanmay on: 1 03:07 PM CDT
[2025-08-14 15:05] VITALS: BP 116/68; PULSE 80; RESP 18; TEMP 36.6; O2SAT 96; BMI 32.3
--- OUTSIDE RECORDS SUMMARY | 2025-08-14 15:07 | XMS_ITS | Patient Health Record ---
Author Organization [facility] Address [address] [place] [address] Care Team Providers Care Coding Tech Name Role Phone Mahad Silvestre MD Primary Care Provider Jas Devi Unavailable [phone] Allergies Allergen (clinical drug ingredient) Drug/Non Drug Allergy documented on EMR Reaction Allergy Type Onset Date Status Substance with penicillin structure and antibacterial mechanism of action (substance) Penicillins hives Drug Allergy Active Substance with sulfonamide structure and antibacterial mechanism of action (substance) Sulfa Antibiotics hives Drug Allergy Active Results Component Value Reference Range Flag Notes Urine Drug Screen (cup read) - 85766 Reviewed date:08/06/2025 03:30:20 PM Interpretation:negative all Performing Lab: Notes/Report: negative all Urine Confirmation Panel (in strument) - [id number] Reviewed date:08/12/2025 12:35:27 PM Interpretation: Performing Lab: [...] by the U.S. Food and Drug Administration. Tox Results Reviewed date:08/12/2025 01:12:45 PM Interpretation: Performing Lab: Notes/Report: Reason For Referral Reason Eval and Treat Diagnosis 1 Chronic pain (G89.29 ) Referring Provider First Name Mahad Referring Provider Last Name Nirmala Referring Provider [facility]erred Organization [facility] Referred Provider Nura Mota Referred Address [address] [facility],[place],[address], Referred Provider Specialty Pain Medicin e General Notes ElhamKeshia fenton Roderick 05:53:20 PM CDT > mailing npp, scheduled pt Referral Priority Routine Medications Medication SIG (Take, Route, Frequency, Duration) Notes Start Date End Date Status oxyCODONE-Acetaminophen 7.5-325 MG Tablet 1 tablet as needed Orally every 6 hrs Not-Taking traMADol HCl 50 MG Tablet 1 tablet as needed Orally every 6 hours Not-Taking Social History Social History Additional Details Category Social Info Options Details Miscellaneous: Sexually active: yes Sexual abuse: no Problems Problem Type SNOMED Code ICD Code Onset Dates Problem Status W/U Status Risk Notes Problem Chronic pain syndrome (405472854) Chronic pain syndrome (G89.4) Active confirmed Problem Lumbar radiculopathy (792847907) Lumbar radiculopathy (M54.16) Active confirmed Problem Lumbar spondylosis (220514626) Lumbar spondylosis (M47.816) Active confirmed Problem Chronic pain (70604005) Chronic pain (G89.29) Active confirmed Problem Abnormal gait (43622304) Abnormality of gait and mobility (R26.9) Active confirmed Vital Signs Height-cm 175.26 cm 08/06/2025 Weight-kg 108.41 kg 08/06/2025 Height 69 in 08/06/2025 Weight 239 lbs 08/06/2025 BMI 35.29 kg/m2 08/06/2025 Encounters Encounter Location Date Provider Diagnosis [facility] [address] [place] [address] 08/06/2025 Jas Pinon Chronic pain syndrom e G89.4 ; Lumbar radiculopathy M54.16 ; Lumbar spondylosis M47.816 ; Abnormality of gait and mobility R26.9 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 [address] [facility] [place] [address] 07/03/2025 Jas Pinon Chronic pain syndrom e G89.4 ; Lumbar radiculopathy M54.16 ; Lumbar spondylosis M47.816 ; Abnormality of gait and mobility R26.9 and snf (current) use of opiate analgesic Z79.891 Assessments Encounter Date Diagnosis (ICD Code) Assessment Notes Treatment Notes Treatment Clinical Notes Section Notes 07/03/2025 Chronic pain syndrome (ICD-10 - G89.4) I had a nice visit with the patient today regarding his chronic pain issues. Based on his history and physical exam, the worst of his symptoms appears consistent with lumbar spondylosis. It sounds like he has had various injections in the past, but has not had any in several years. He had been maintained on Tramadol and Percocet, taking four of each per day, but ran out of Percocet from Dr. Snell about a week ago. Although he refilled the Tramadol, he reports that it no longer helps, so he has stopped taking it. He repeatedly stated that he wants to stop taking pain medications, but when I pointed out that he had already stopped due to running out, he responded that he wasn't ready to stop and is unsure how to manage his pain. I recommended that he proceed with obtaining the MRI and provided a small prescription of Percocet at a reduced frequency compared to his previous regimen. We will see him back in a month and proceed accordingly. I have taken history and performed physical exam on patient as well as reviewed diagnosis today. We reviewed most current pain management medication guidelines which include NSAIDs, TCAs, SNRIs, antiepileptic drugs (AEDs) as first line therapies. We discussed our goal-directed therapy should include the following: a healthier lifestyle of proper nutrition and weight control, proper body mechanics, smoking cessation, muscle and core strengthening, coping strategies/cogniti ve therapy, targeted interventional therapy, and avoidance of painful triggers. Patient understands our goal is to avoid chronic opioid, if possible, and exhaust all other treatment options first. We will perform opioid risk stratification using SOAPP today. We discussed that realistic goals in chronic pain are a 40% overall improvement (reduction in pain, improvement in function and improvement in enjoyment of life). The patient may be considered for opioid management in order to improve functional status and overall quality of life. This is not first-line therapy, and most other treatment options have failed as above. The patient has been made aware of all clinic policies, compliance policies, the full risks/benefits of opioids, all in writing, as well as signed an opioid agreement which is attached to the chart. Patient is reminded today that a 30-40% overall improvement in chronic pain and functional status is our goal. 07/03/2025 Lumbar radiculopathy (ICD-10 - M54.16) 08/06/2025 Chronic pain syndrome (ICD-10 - G89.4) [...] accordingly. 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 Jas Pinon. I, Dr. Jas Pinon, personally performed the services described in this documentation, as scribed by Graciela Peterson, and it is both accurate and complete. 07/03/2025 Other Graciela Hi am scribing for Dr. Jas Pinon. I, Dr. Jas Pinon, personally performed the services described in this documentation, as scribed by Graciela Peterson, and it is both accurate and complete. Plan Of Treatment Next Appt Details Provider Name:Jas Pinon, 08/27/2025 02:00:00 PM, [address] [place], [address], Insurance Providers Payer Name Payer Address Payer Phone Subscriber Number Group Number Insured Name Patient Relationship to Insured Coverage Start Date Coverage End Date MD Medicaid [address] [place] [address] [phone] [id number] Elvis Saleh Self - patient is the insured Medical (General) History Medical History History ICD Code Diabetes seizures Depression Arthritis kidney infection kidney stones Swelling of multiple joints Thyroid disease Surgical History Surgery Date(Month/Year) testical kidney stone
--- OUTSIDE RECORDS SUMMARY | 2025-08-14 15:07 | XMS_ITS | Clinical Summary ---
Author Organization [facility] Address [address] [facility] [address] [place] [address] Care Team Providers Care Screwhead Stoner And Polisher Name Role Phone Unavailable Primary Care Provider [...] 1,000 Units by mouth daily. Active multivit,calc,m nm-FC-U4-lycop (One-A-Day Men's Complete) 240 mcg-30 mcg- 300 mcg Tablet Take 1 Tablet by mouth daily. Active naloxone (Narcan) 4 mg/spray [place], Non-Aerosol Administer 4 mg in one nostril [...] thereafter. 200 Tablet 3 09/21/2024 1:00 PM ROPE COILING MACHINE OPERATOR 4 Active glimepiride (AMARYL) 2 mg tablet Take 1 Tablet (2 mg) by mouth daily with breakfast. DIABETES 100 Tablet 3 09/21/2024 1:00 PM ROPE COILING MACHINE OPERATOR 4 Active Active Problems Problem Noted Date [...] on file Legal Sex Male 4:33 AM ROPE COILING MACHINE OPERATOR Gender Identity Not on file Sexual Orientation Not on file Last Filed Vital Signs Vital Sign Reading Time Taken Comments Blood Pressure 147/88 09/21/2024 11:15 AM ROPE COILING MACHINE OPERATOR Pulse 80 09/21/2024 11:15 AM ROPE COILING MACHINE OPERATOR Temperature 36.3 C (97.4 F) 09/21/2024 11:15 AM ROPE COILING MACHINE OPERATOR Respiratory Rate 18 09/21/2024 11:15 AM ROPE COILING MACHINE OPERATOR Oxygen Saturation 98% 09/21/2024 11:15 AM ROPE COILING MACHINE OPERATOR Inhaled Oxygen Concentration - - Weight 108.9 kg (240 lb) 09/18/2024 10:39 PM ROPE COILING MACHINE OPERATOR Height 180.3 cm (5' 11 ) 09/18/2024 10:39 PM ROPE COILING MACHINE OPERATOR Body Mass Index 33.47 09/18/2024 10:39 PM ROPE COILING MACHINE OPERATOR Plan of Treatment Health Maintenance Due Date [...] Comments HEMOGLOBIN A1C Routine 09/19/2024 6:26 AM ROPE COILING MACHINE OPERATOR from Last 3 Months or Most Recently Relevant to Health Maintenance Results * (ABNORMAL) HEMOGLOBIN A1C (09/19/2024 6:26 AM ROPE COILING MACHINE OPERATOR) HEMOGLOBIN A1C 12.0(H) <=5.6 % 09/20/2024 11:05 AM [facility] [employer] [facility] EST. AVG GLUCOSE, A1C 298 mg/dL 09/20/2024 11:05 AM [facility] Blood Venipuncture / Unknown 09/19/2024 6:26 AM ROPE COILING MACHINE OPERATOR 09/19/2024 6:50 AM ROPE COILING MACHINE OPERATOR Narrative [facility] - 09/20/2024 11:05 AM ROPE COILING MACHINE OPERATOR HGB A1C INTERPRETATION NORMAL: <5.7% PRE-DIABETES: 5.7 - 6.4% DIABETES: 6.5% OR GREATER Delvin Smalls MD CHEMISTRY ORDERABLES Final Result [facility] # [id number] [address] [facility] [place] [address] from Last 3 Months or Most Recently Relevant to Health Maintenance Insurance [place]ICAID [place] [employer] Medicaid Advance Directives For more information, please contact: [phone] * Full Code (Latest Code Status on File) Date Activated Date Inactivated Comments 09/18/2024 8:47 PM 09/21/2024 3:04 PM
--- NOTE | 2025-08-14 16:03 | CTR_ITS ---
PROCEDURE INFORMATION: Exam: CT Abdomen And Pelvis Without Contrast Exam date and time: 08/14/2025 4:12 PM Age: 49 years old Clinical indication: Abdominal pain; Left; PT C/O lt flank pain w/hx of kidney stones TECHNIQUE: Imaging protocol: Computed tomography of the abdomen and pelvis without contrast. Radiation optimization: All CT scans at this facility use at least one of these dose optimization techniques: automated exposure control; mA and/or kV adjustment per patient size (includes targeted exams where dose is matched to clinical indication); or iterative reconstruction. COMPARISON: CT kidney stone [id number] 08/01/2025 4:35 PM RADIATION DOSE METRICS: Total DLP (mGy-cm): 968.1 FINDINGS: Tubes, catheters and devices: Rounded prosthetic device in the left scrotum. Lungs: The visualized lung bases are unremarkable. Liver: The liver appears grossly unremarkable on this noncontrast study. Gallbladder and biliary ducts: Multiple calcified gallstones are present. No biliary ductal dilatation. Pancreas: The pancreas appears unremarkable. Spleen: Mild nonspecific splenomegaly. Adrenal glands: The adrenal glands are unremarkable. Kidneys and ureters: 3 mm left distal ureteral stone with moderate left hydronephrosis and minimal perinephric stranding. The right kidney appears unremarkable. Stomach and bowel: There is no evidence of intestinal perforation or obstruction. Transverse and left colon are mostly decompressed. Appendix: Appendix is not definitively seen but there is no pericecal inflammatory change. Intraperitoneal space: No free air. No significant fluid collection. Vasculature: Limited assessment of the vasculature without contrast. No aortic aneurysm. Lymph nodes: No pathologically enlarged lymph nodes demonstrated. Similar mildly prominent inguinal lymph nodes, which may be reactive. Urinary bladder: Smooth circumferential bladder wall thickening, which could be related to decompression, chronic outlet obstruction, or cystitis. Reproductive: The prostate demonstrates mild nonspecific enlargement. Bones/joints: There is no acute osseous abnormality. Soft tissues: Small fat containing umbilical hernia. CT/CT kidney stone [id number] IMPRESSION: 1. 3 mm left distal ureteral stone with moderate left hydronephrosis and minimal perinephric stranding. 2. Smooth circumferential bladder wall thickening, which could be related to decompression, chronic outlet obstruction, or cystitis. Correlate with symptoms and urinalysis. 3. Cholelithiasis. 4. Mild nonspecific splenomegaly.
--- NOTE | 2025-08-14 16:07 | W.ED.ABDPA2 ---
HPI - Abdominal Pain General: Chief Complaint: Abdominal Pain Stated Complaint: abd pain Time Seen by Provider: 08/14/25 16:03 History of Present Illness: 49-year-old man who presents emergency room with continued flank pain with known left kidney stone. This been going on for several weeks now. He has not follow-up with urology. He says there has been a consult placed for follow-up in [place] in [place]. No fevers. Some nausea with no vomiting. Pain is now further down his flank he says. Related Data Home Medications ?Medication ?Instructions ?Recorded ?Confirmed oxycodone-acetaminophen 7.5 mg-325 1 tab PO Q4H PRN pain 09/18/24 06/24/25 mg tablet tramadol 50 mg tablet 50 mg PO Q4H PRN pain 09/18/24 06/24/25 fluconazole 150 mg tablet 150 mg PO .QOD x14d 02/24/25 06/24/25 mupirocin 2 % topical ointment 1 applic topical TID PRN until 02/24/25 06/24/25 healed empagliflozin 10 mg tablet mg PO 03/11/25 06/24/25 (Jardiance) furosemide 20 mg tablet mg PO 03/11/25 06/24/25 potassium chloride 8 mEq meq PO 03/11/25 06/24/25 tablet,extended release tamsulosin 0.4 mg capsule mg PO 03/11/25 06/24/25 varenicline tartrate 1 mg tablet mg PO 03/11/25 06/24/25 Previous Rx's ?Medication ?Instructions ?Recorded clotrimazole-betamethasone 1 1 applic topical BID 4 weeks #45 03/11/25 %-0.05 % topical cream grams hydrocodone 5 mg-acetaminophen 325 1 tab PO Q6H PRN pain #20 tabs 06/27/25 mg tablet promethazine 25 mg tablet 25 mg PO Q6H PRN nausea and 06/27/25 vomiting #20 tabs tamsulosin 0.4 mg capsule 0.4 mg PO DAILY #14 caps 06/27/25 hydrocodone 5 mg-acetaminophen 325 1 tab PO Q6H PRN pain #14 tabs 08/01/25 mg tablet ondansetron 4 mg disintegrating 4 mg PO Q6H PRN nausea and 08/01/25 tablet vomiting #14 tabs tamsulosin 0.4 mg capsule (Flomax) 0.4 mg PO DAILY #5 caps 08/01/25 hydrocodone 5 mg-acetaminophen 325 1 tab PO Q6H PRN pain #20 tabs 08/14/25 mg tablet ondansetron 8 mg disintegrating 8 mg PO Q6H #14 tabs 08/14/25 tablet polyethylene glycol 3350 17 17 g PO DAILY #510 grams 08/14/25 gram/dose oral powder (Miralax) tamsulosin 0.4 mg capsule (Flomax) 0.4 mg PO DAILY #30 caps 08/14/25 Allergies Allergy/AdvReac Type Severity Reaction Status Date / Time adhesive tape Allergy Unknown Verified 08/01/25 16:01 celecoxib (From Celebrex) Allergy Unknown Verified 08/01/25 16:01 cephalexin (From Keflex) Allergy Unknown Verified 08/01/25 16:01 doxycycline Allergy Unknown Verified 08/01/25 16:01 ibuprofen Allergy Unknown Verified 08/01/25 16:01 levofloxacin (From Levaquin) Allergy Unknown Verified 08/01/25 16:01 methadone Allergy ALGY-Anaphy Verified 08/01/25 16:01 laxis milnacipran (From Savella) Allergy Unknown Verified 08/01/25 16:01 morphine Allergy Unknown Verified 08/01/25 16:01 Penicillins Allergy unknown Verified 08/01/25 16:01 rofecoxib (From Vioxx) Allergy Unconscious Verified 08/01/25 16:01 Sulfa (Sulfonamide Allergy ALGY-Rash Verified 08/01/25 16:01 Antibiotics) terbinafine (From Lamisil) Allergy Unknown Verified 08/01/25 16:01 trazodone Allergy Unknown Verified 08/01/25 16:01 Review of Systems Narrative: Constitutional symptoms: Negative except as documented in HPI. Skin symptoms: Negative except as documented in HPI. Eye symptoms: Negative except as documented in HPI. ENMT symptoms: Negative except as documented in HPI. Respiratory symptoms: Negative except as documented in HPI. Cardiovascular symptoms: Negative except as documented in HPI. Gastrointestinal symptoms: Negative except as documented in HPI. Genitourinary symptoms: Negative except as documented in HPI. Musculoskeletal symptoms: Negative except as documented in HPI. Neurologic symptoms: Negative except as documented in HPI. Psychiatric symptoms: Negative except as documented in HPI. Endocrine symptoms: Negative except as documented in HPI. [facility] ED PFSH: Medical History (Updated 08/14/25 @ 16:53 by Abbie Bhatt MD) Chronic neck pain Chronic left shoulder pain Anxiety and depression Opioid contract exists Encounter for long-term use of opiate analgesic Fibromyalgia DDD (degenerative disc disease), lumbar Pain of paraspinal muscle Surgical History Status post laser lithotripsy of ureteral calculus Social History Smoking and tobacco/nicotine status: current every day tobacco/nicotine user cigarettes Packs smoked per day: 1.5 Alcohol intake: never Substance/Drug Use: never Physical Exam Narrative: EXAM NARRATIVE: General: Alert, no acute distress. Skin: Warm, dry. Head: Normocephalic, atraumatic. Neck: Supple, trachea midline. Eye: Extraocular movements are intact. Ears, nose, mouth and throat: mucosa moist. Cardiovascular: Regular, Normal peripheral perfusion. Respiratory: Lungs are clear to auscultation, respirations are non-labored, breath sounds are equal, Symmetrical chest wall expansion. Gastrointestinal: Soft, Nontender, Non distended Musculoskeletal: Normal ROM, no deformity. Neurological: Alert and oriented, No focal neurological deficit observed. Psychiatric: Cooperative, appropriate mood & affect. Course Vital Signs: Vital signs: Vital Signs Temperature 97.9 F 08/14/25 15:05 Pulse Rate 80 08/14/25 15:05 Respiratory Rate 18 08/14/25 15:05 Blood Pressure 116/68 08/14/25 15:05 Pulse Oximetry 96 08/14/25 15:05 Oxygen Delivery Me thod Room Air 08/14/25 15:05 MDM - Abdominal Pain Medical Decision Making Medical decision making: Differential diagnosis including but not limited to and based on the above HPI, review of systems and physical exam: In this patient with flank pain would have concern for: Ureterolithiasis. Urinary tract infection. Appendicitis. Cholecystitis. Musculoskeletal / back pain. Pyelonephritis. Orders placed to evaluate differential diagnosis based on the above differential, HPI and physical exam Lab Review: Laboratory results were reviewed and interpreted by myself the emergency room physician. No leukocytosis. No anemia. No renal failure. Urine has blood but no overt signs of infection and has had no fever. CT of the abdomen pelvis without contrast: 3 mm distal ureteral stone with proximal left hydronephrosis and some perinephric stranding. This was reviewed and interpreted by myself the emergency room physician. I also reviewed the radiology report. I reviewed the patient's medical record. Patient has known kidney stone. In comparison to previous this is moved even further down his ureter and is now distal. Reexamination: Patient remained stable. No increased work of breathing. No altered mental status. No focal motor deficits. Assessment and plan: Ureterolithiasis ?Marybeth in the emergency room - Discharged home - Discussed plan with patient. Answered any questions. - Evaluation and treatment of this problem were appropriate in the emergency setting. Lab Data 08/14/25 16:06 08/14/25 16:06 Labs/Radiology: Radiology Impressions Abdomen/Pelvis CT 08/14/25 16:03 IMPRESSION: 1. 3 mm left distal ureteral stone with moderate left hydronephrosis and minimal perinephric stranding. 2. Smooth circumferential bladder wall thickening, which could be related to decompression, chronic outlet obstruction, or cystitis. Correlate with symptoms and urinalysis. 3. Cholelithiasis. 4. Mild nonspecific splenomegaly. Laboratory Results WBC 9.40 10^3/uL (3.29-11.43) 08/14/25 16:06 RBC 5.14 10^6/uL (3.85-5.65) 08/14/25 16:06 Hgb 16.70 g/dL (11.27-16.99) 08/14/25 16:06 Hct 47.9 % (37-53) 08/14/25 16:06 MCV 93.2 fl (82-101) 08/14/25 16:06 MCH 32.5 pg (27-33) 08/14/25 16:06 MCHC 34.9 g/dL (30-55) 08/14/25 16:06 RDW 12.3 % (12.1-15.1) 08/14/25 16:06 Plt Count 158 10^3/cmm (157-399) 08/14/25 16:06 MPV 10.8 fL (7.4-10.4) H 08/14/25 16:06 Neut % (Auto) 70.2 % 08/14/25 16:06 Lymph % (Auto) 22.1 % 08/14/25 16:06 Ada % (Auto) 6.8 % 08/14/25 16:06 Eos % (Auto) 0.1 % 08/14/25 16:06 Baso % (Auto) 0.5 % 08/14/25 16:06 Neut # (Auto) 6.59 10^3/uL (1.8-7.7) 08/14/25 16:06 Lymph # (Auto) 2.1 10^3/uL (0.8-4.8) 08/14/25 16:06 Ada # (Auto) 0.6 10^3/uL (0.2-0.9) 08/14/25 16:06 Eos # (Auto) 0.0 10^3/uL (0.0-0.8) 08/14/25 16:06 Baso # (Auto) 0.1 10^3/uL (0.0-0.1) 08/14/25 16:06 Nucleated RBC % (auto) 0 % 08/14/25 16:06 Nucleated RBCs # 0.0 /100WBC 08/14/25 16:06 Sodium 138 mmol/L (136-145) 08/14/25 16:06 Potassium 4.1 mmol/L (3.5-5.1) 08/14/25 16:06 Chloride 102 mmol/L (98-107) 08/14/25 16:06 Carbon Dioxide 24 mmol/L (22-29) 08/14/25 16:06 Anion Gap 16.1 (5-19) 08/14/25 16:06 BUN 9 mg/dL (6-20) 08/14/25 16:06 Creatinine 0.7 mg/dL (0.7-1.2) 08/14/25 16:06 GFR Calculation 119.4 mL/min (90-130) 08/14/25 16:06 Glucose 86 mg/dL (65-115) 08/14/25 16:06 Calculated Osmolality 284 mOsm/kg (285-295) L 08/14/25 16:06 Calcium 9.2 mg/dL (8.5-10.5) 08/14/25 16:06 Total Bilirubin 0.7 mg/dL (0.15-1.2) 08/14/25 16:06 AST 11 U/L (0-40) 08/14/25 16:06 ALT 10 U/L (0-41) 08/14/25 16:06 Alkaline Phosphatase 118 U/L (40-130) 08/14/25 16:06 Total Protein 7.2 g/dL (6.6-8.7) 08/14/25 16:06 Albumin 4.4 g/dL (3.5-5.2) 08/14/25 16:06 Globulin 2.8 g/dL (1.3-4.6) 08/14/25 16:06 Urine Color [place] (Yellow) A 08/14/25 16:38 Urine Appearance Clear (CLEAR) 08/14/25 16:38 Urine pH 7.0 (5-7) 08/14/25 16:38 Ur Specific [place] 1.015 (1.005-1.030) 08/14/25 16:38 Urine Protein Negative (Negative) 08/14/25 16:38 Urine Glucose (UA) Negative (Normal) 08/14/25 16:38 Urine Ketones Negative (Negative) 08/14/25 16:38 Urine Blood 3+ (Negative) A 08/14/25 16:38 Urine Nitrate Negative (Negative) 08/14/25 16:38 Urine Bilirubin Negative (Negative) 08/14/25 16:38 Urine Urobilinogen 1.0 mg/dL (Negative) 08/14/25 16:38 Ur Leukocyte Esterase Negative (Negative) 08/14/25 16:38 Urine RBC >100 /hpf (0-2) H 08/14/25 16:38 Urine WBC 5-10 /hpf (0-5) H 08/14/25 16:38 Ur Squamous Epith Cells 0-4 /hpf (0-5) H 08/14/25 16:38 Amorphous Sediment Not Reportable 08/14/25 16:38 Urine Bacteria None /hpf (NONE) 08/14/25 16:38 Urine Mucus None /hpf 08/14/25 16:38 All radiology interpretation(s) finalized by discharge Discharge Plan Discharge Patient Disposition: Home Clinical Impression: Ureterolithiasis Condition: Stable Prescriptions: New hydrocodone-acetaminophen 5-325 mg tablet 1 tab PO Q6H PRN (Reason: pain) Qty: 20 0RF ondansetron 8 mg tablet,disintegrating 8 mg PO Q6H Qty: 14 0RF Rx Instructions: Take 1/2-1 tab every 6 hours as needed for nausea and vomiting tamsulosin [Flomax] 0.4 mg capsule 0.4 mg PO DAILY Qty: 30 0RF polyethylene glycol 3350 [Miralax] 17 gram/dose powder 17 g PO DAILY Qty: 510 0RF Rx Instructions: Take 1 scoop daily while taking pain medications. No Action clotrimazole-betamethasone 1-0.05 % cream 1 applic topical BID 28 Days Qty: 45 3RF varenicline tartrate 1 mg tablet PO furosemide 20 mg tablet PO potassium chloride 8 mEq tablet extended release PO tamsulosin 0.4 mg capsule PO Jardiance 10 mg tablet PO tramadol 50 mg tablet 50 mg PO Q4H MDD 4 per day PRN (Reason: pain) oxycodone-acetaminophen 7.5-325 mg tablet 1 tab PO Q4H MDD 4 per day PRN (Reason: pain) hydrocodone-acetaminophen 5-325 mg tablet 1 tab PO Q6H PRN (Reason: pain) Qty: 14 0RF ondansetron 4 mg tablet,disintegrating 4 mg PO Q6H PRN (Reason: nausea and vomiting) Qty: 14 0RF tamsulosin [Flomax] 0.4 mg capsule 0.4 mg PO DAILY Qty: 5 0RF fluconazole 150 mg tablet 150 mg PO .QOD mupirocin 2 % ointment 1 applic TOPICAL TID PRN (Reason: until healed) hydrocodone-acetaminophen 5-325 mg tablet 1 tab PO Q6H PRN (Reason: pain) Qty: 20 0RF promethazine 25 mg tablet 25 mg PO Q6H PRN (Reason: nausea and vomiting) Qty: 20 0RF tamsulosin 0.4 mg capsule 0.4 mg PO DAILY Qty: 14 0RF Discharge Orders: Discharge ED (Routine); Ordered 08/14/25 Ordered By: Abbie Bhatt Referrals: Chandrakant Stern [Referring, Urology] Referral Note: You need to follow with urology. Either Dr. Stern in [place] or with a urologist of your choosing. This needs to be done soon Mahad Silvestre MD [Primary Care Provider, Family Practice] Discharge Diet: Usual diet Discharge Activity: Increase activity as tolerated Patient Instructions: Opioid Safety, Pain Management, Patient Portal & Summer Instructions Activity Restrictions/Additional Instructions: You need to follow with urology. Either Dr. Stern in [place] or with a urologist of your choosing. This needs to be done soon Call for appointment with urology. If fever (temp >100.4) develops return to the emergency room immediately, as this is an emergency. Take nausea medication prior to taking pain medications. Thank you for choosing [facility] for your healthcare needs today. You have been screened and evaluated and felt safe for discharge. Health conditions do change or evolve sometimes and as such it is important that you follow up with your Primary Doctor to be re checked, 3-5 days is a general good time frame for follow up. You are always welcome to return to the ED for re assessment if your symptoms are worsening or you have new concerns Print Language: Bermudian Coding Level of Care Code ED Director Of Occupational Health for [facility]
[2025-08-14 16:11] LABS: Hematocrit 47.9 % (37-53); Hemoglobin 16.70 g/dL (11.27-16.99); Mean Corpuscular HGB Conc 34.9 g/dL (30-55); Mean Corpuscular Hemoglobin 32.5 pg (27-33); Mean Corpuscular Volume 93.2 fl (82-101); Nucleated Red Blood Cells % 0 %; Platelet Count 158 10^3/cmm (157-399); Red Blood Count 5.14 10^6/uL (3.85-5.65); White Blood Count 9.40 10^3/uL (3.29-11.43)
[2025-08-14 16:34] LABS: Alanine Aminotransferase 10 U/L (0-41); Albumin Level 4.4 g/dL (3.5-5.2); Alkaline Phosphatase 118 U/L (40-130); Anion Gap 16.1 (5-19); Aspartate Amino Transferase 11 U/L (0-40); Blood Urea Nitrogen 9 mg/dL (6-20); Calcium 9.2 mg/dL (8.5-10.5); Carbon Dioxide 24 mmol/L (22-29); Chloride 102 mmol/L (98-107); Creatinine Clr Calc Pharmacy 155.8450; Globulin 2.8 g/dL (1.3-4.6); Glucose 86 mg/dL (65-115); Osmolality Calculated 284 mOsm/kg (285-295); Potassium 4.1 mmol/L (3.5-5.1); Sodium 138 mmol/L (136-145); Total Protein 7.2 g/dL (6.6-8.7)
[2025-08-14 16:57] LABS: Glucose Urine UA Negative (Normal); Nitrate Urine Negative (Negative); Specific Gravity, Urine 1.015 (1.005-1.030)
[2025-08-14 17:17] LABS: Add Urine Microscopic? YES
== END 2025-08-14 18:01 | disposition home or self-care (01) ==
PROVIDERS: Physician Assistant; Emergency Provider Emergency Medicine; PCP Family Medicine
DX: N13.2 Hydronephrosis with renal and ureteral calculous obstruction (principal); F17.210 Nicotine dependence, cigarettes, uncomplicated
CPT/HCPCS: 36415; 74176; 80053; 81001; 85025; 87086; 99284

== ENCOUNTER 2025-08-18 14:29 | Outpatient (CLI) | payer MEDICAID, SELFPAY ==
--- NOTE | 2025-08-18 14:33 | MR_ITS ---
WS: [id number] MRI LUMBAR SPINE NONCONTRAST HISTORY: CHRONIC BACK PAIN COMPARISON: None available. TECHNIQUE: Sagittal and axial multisequence imaging is submitted. Normal lumbar alignment with no compression fractures or marrow edema. Disc spaces and vertebral body heights are well-preserved. Conus terminates normally at L1-2 disc level. L1-L2: Mild bilateral facet arthritis. No high-grade stenosis or disc protrusion. Mild foraminal stenosis. L2-L3: Mild disc bulging and osteophytic ridging. Mild ligamentum flavum and facet arthritis. Mild bilateral foraminal stenosis. L3-L4: Diffuse disc bulging with ligamentum flavum and facet arthritis. Mild ligamentum flavum hypertrophy. Very mild central, subarticular recess and bilateral foraminal stenosis. L4-L5: Diffuse disc bulging and osteophytic ridging, ligamentum flavum and facet joint arthritis. Small amount of fluid in the LEFT facet joint. Central disc osteophyte complex. There is disc osteophyte contact on the traversing L5 nerve roots and also with mild contact on the exiting L4 nerve roots. Moderate to severe central with bilateral subarticular recess and moderate foraminal stenosis. L5-S1: Mild annular disc bulging with a central disc protrusion. Disc contacts the S1 nerve roots. Mild facet arthritis. Very mild central and bilateral subarticular recess stenosis. Mild to moderate RIGHT and mild LEFT foraminal stenosis due to disc osteophyte disease. Paravertebral soft tissues are negative. MR/MR lumbar spine wo con* [id number] IMPRESSION: 1. No acute lumbar spine fracture. 2. Moderate to severe central with bilateral subarticular recess and moderate foraminal stenosis at L4-5. There is disc osteophyte contact on the L4 and L5 n erve roots. 3. Mild to moderate RIGHT and mild LEFT foraminal stenosis at L5-S1. 4. Mild central, subarticular recess and bilateral foraminal stenosis at L3-4. Mild foraminal stenosis at L1-2 and L2-3.
== END 2025-08-18 14:30 | disposition home or self-care (01) ==
LOC: RAD 14:29
PROVIDERS: PCP Family Medicine; Visit Provider Family Medicine
DX: M54.89 Other dorsalgia (principal); M47.816 Spondylosis without myelopathy or radiculopathy, lumbar region; M48.061 Spinal stenosis, lumbar region without neurogenic claudication; M51.16 Intervertebral disc disorders with radiculopathy, lumbar region; M51.17 Intervertebral disc disorders with radiculopathy, lumbosacral region; M48.07 Spinal stenosis, lumbosacral region
CPT/HCPCS: 72148

== ENCOUNTER 2025-08-19 18:50 | Emergency (ER) | payer MEDICAID, SELFPAY ==
--- OUTSIDE RECORDS SUMMARY | 2025-08-06 09:20 | XMS_ITS ---
Author Organization [facility] Address [address] [place] [address] Care Team Providers Care Dozer Operator Name Role Phone Mahad Silvestre MD Primary Care Provider Jas Devi Unavailable [phone] Results Component Value Reference Range Flag Notes Urine Drug Screen (cup read) - 32794 Reviewed date:08/06/2025 03:30:20 PM Interpretation:negative all Performing Lab: Notes/Report: negative all Urine Confirmation Panel (in strument) - [id number] Reviewed date:08/12/2025 12:35:27 PM Interpretation: Performing Lab: Notes/Report: 6-Acetylmorphine 0 <6 ng/mL N This clemente t was developed and its performance characteristics determined by [facility]. It has not been cleared or approved by the U.S. Food and Drug Administration. 7-Aminoclonazepam 0 <60 ng/mL N This te st was developed and its performance characteristics determined by [facility]. It has not been cleared or approved by the U.S. Food and Drug Administration. Alprazolam 0 <60 ng/mL N This test was developed and its performance characteristics determined by [facility]. It has not been cleared or approved by the U.S. Food and Drug Administration. Amphetamine 0 <75 ng/mL N This test was developed and its performance characteristics determined by [facility]. It has not been cleared or approved by the U.S. Food and Drug Administration. aOH-Alprazolam 0 <60 ng/mL N This test was developed and its performance characteristics determined by [facility]. It has not been cleared or approved by the U.S. Food and Drug Administration. Buprenorphine 0.0 <7.5 ng/mL N This test w as developed and its performance characteristics determined by [facility]. It has not been cleared or approved by the U.S. Food and Drug Administration. Norbuprenorphine 0.0 <37.5 ng/mL N This te st was developed and its performance characteristics determined by [facility]. It has not been cleared or approved by the U.S. Food and Drug Administration. Carisoprodol 0 <75 ng/mL N This test wa s developed and its performance characteristics determined by [facility]. It has not been cleared or approved by the U.S. Food and Drug Administration. Codeine 0 <75 ng/mL N This test was developed and its performance characteristics determined by [facility]. It has not been cleared or approved by the U.S. Food and Drug Administration. EDDP 0 <75 ng/mL N This test was developed and its performance characteristics determined by [facility]. It has not been cleared or approved by the U.S. Food and Drug Administration. Fentanyl 0 <6 ng/mL N This test was developed and its performance characteristics determined by [facility]. It has not been cleared or approved by the U.S. Food and Drug Administration. Hydrocodone 0 <75 ng/mL N This test was developed and its performance characteristics determined by [facility]. It has not been cleared or approved by the U.S. Food and Drug Administration. Hydromorphone 0 <75 ng/mL N This test w as developed and its performance characteristics determined by [facility]. It has not been cleared or approved by the U.S. Food and Drug Administration. Lorazepam 0 <60 ng/mL N This test was developed and its performance characteristics determined by [facility]. It has not been cleared or approved by the U.S. Food and Drug Administration. MDMA 0 <75 ng/mL N This test was developed and its performance characteristics determined by [facility]. It has not been cleared or approved by the U.S. Food and Drug Administration. Meperidine 0.0 <37.5 ng/mL N This test was developed and its performance characteristics determined by [facility]. It has not been cleared or approved by the U.S. Food and Drug Administration. Meprobamate 0 <75 ng/mL N This test was developed and its performance characteristics determined by [facility]. It has not been cleared or approved by the U.S. Food and Drug Administration. Methamphetamine 0 <75 ng/mL N This test was developed and its performance characteristics determined by [facility]. It has not been cleared or approved by the U.S. Food and Drug Administration. Methadone 0 <75 ng/mL N This test was developed and its performance characteristics determined by [facility]. It has not been cleared or approved by the U.S. Food and Drug Administration. Morphine 0 <75 ng/mL N This test was developed and its performance characteristics determined by [facility]. It has not been cleared or approved by the U.S. Food and Drug Administration. Nordiazepam 0 <60 ng/mL N This test was developed and its performance characteristics determined by [facility]. It has not been cleared or approved by the U.S. Food and Drug Administration. Norfentanyl 0 <6 ng/mL N This test was developed and its performance characteristics determined by [facility]. It has not been cleared or approved by the U.S. Food and Drug Administration. Normeperidine 0.0 <37.5 ng/mL N This test was developed and its performance characteristics determined by [facility]. It has not been cleared or approved by the U.S. Food and Drug Administration. O-desmethyltramadol 0 <75 ng/mL N This test was developed and its performance characteristics determined by [facility]. It has not been cleared or approved by the U.S. Food and Drug Administration. Oxazepam 0 <60 ng/mL N This test was developed and its performance characteristics determined by [facility]. It has not been cleared or approved by the U.S. Food and Drug Administration. Oxycodone 0.0 <37.5 ng/mL N This test was developed and its performance characteristics determined by [facility]. It has not been cleared or approved by the U.S. Food and Drug Administration. Oxymorphone 0 <75 ng/mL N This test was developed and its performance characteristics determined by [facility]. It has not been cleared or approved by the U.S. Food and Drug Administration. Phencyclidine 0.0 <7.5 ng/mL N This test w as developed and its performance characteristics determined by [facility]. It has not been cleared or approved by the U.S. Food and Drug Administration. Tapentadol 0.0 <37.5 ng/mL N This test was developed and its performance characteristics determined by [facility]. It has not been cleared or approved by the U.S. Food and Drug Administration. Temazepam 0 <60 ng/mL N This test was developed and its performance characteristics determined by [facility]. It has not been cleared or approved by the U.S. Food and Drug Administration. Tramadol 0 <75 ng/mL N This test was developed and its performance characteristics determined by [facility]. It has not been cleared or approved by the U.S. Food and Drug Administration. Norhydrocodone 0 <75 ng/mL N This test was developed and its performance characteristics determined by [facility]. It has not been cleared or approved by the U.S. Food and Drug Administration. Noroxycodone 0 <38 ng/mL N This test wa s developed and its performance characteristics determined by [facility]. It has not been cleared or approved by the U.S. Food and Drug Administration. Pregabalin 0 <225 ng/mL N This test was developed and its performance characteristics determined by [facility]. It has not been cleared or approved by the U.S. Food and Drug Administration. Gabapentin 0 <225 ng/mL N This test was developed and its performance characteristics determined by [facility]. It has not been cleared or approved by the U.S. Food and Drug Administration. Benzoylecgonine 0.0 <37.5 ng/mL N This clemente t was developed and its performance characteristics determined by [facility]. It has not been cleared or approved by the U.S. Food and Drug Administration. 4-Hydroxy Xylazine 0 <25 ng/mL N This t est was developed and its performance characteristics determined by [facility]. It has not been cleared or approved by the U.S. Food and Drug Administration. REASON FOR VISIT 1 month f/u Medications Medication SIG (Take, Route, Frequency, Duration) Notes Start Date End Date Status oxyCODONE-Acetaminophen 7.5-325 MG Tablet 1 tablet as needed Orally every 6 hrs Not-Taking traMADol HCl 50 MG Tablet 1 tablet as needed Orally every 6 hours Not-Taking Social History Social History Additional Details Category Social Info Options Details Miscellaneous: Sexually active: yes Sexual abuse: no Vital Signs Height 69 in 08/06/2025 Weight 239 lbs 08/06/2025 BMI 35.29 kg/m2 08/06/2025 Height-cm 175.26 cm 08/06/2025 Weight-kg 108.41 kg 08/06/2025 Encounters Encounter Location Date Provider Diagnosis Formerly [facility] [place] [address] [place] [address] 08/06/2025 Jas Pinon Chronic pain syndrom e G89.4 ; Lumbar radiculopathy M54.16 ; Lumbar spondylosis M47.816 ; Abnormality of gait and mobility R26.9 and detention (current) use of opiate analgesic Z79.891 Assessments Encounter Date Diagnosis (ICD Code) Assessment Notes Treatment Notes Treatment Clinical Notes Section Notes 08/06/2025 Chronic pain syndrome (ICD-10 - G89.4) I had a nice visit with the patient regarding his chronic pain issues. He has his MRI scheduled in two weeks. He says that the Percocet really hasn't helped him. So he only took a couple of them. He says that he got a prescription for Hydrocodone for a kidney stone and got rid of it when the kidney stone cleared. Since he doesn't derive much benefit from the medications, we will discontinue the medications. We will follow up with him in a few weeks to review his MRI and proceed accordingly. 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 Jas Pinon. I, Dr. Jas Pinon, personally performed the services described in this documentation, as scribed by Graciela Peterson, and it is both accurate and complete. Plan Of Treatment Treatment Notes Assessment Notes Chronic pain syndrome I had a nice visit with the patient regarding his chronic pain issues. He has his MRI scheduled in two weeks. He says that the Percocet really hasn't helped him. So he only took a couple of them. He says that he got a prescription for Hydrocodone for a kidney stone and got rid of it when the kidney stone cleared. Since he doesn't derive much benefit from the medications, we will discontinue the medications. We will follow up with him in a few weeks to review his MRI and proceed accordingly. Other I, Graciela Peterson, am scribing for Dr. Jas Pinon. I, Dr. Jas Pinon, personally performed the services described in this documentation, as scribed by Graciela Peterson, and it is both accurate and complete. Next Appt Details Follow Up: 3 Weeks, Reason: Provider Name:Jas Pinon, 08/27/2025 02:00:00 PM, [address] [place], [address], History and Physical Notes * HPI (History of Present Illness) Category Sub-Category Detail Notes Category Not es Pain Details Pain Location Generalized (all over) Quality Aching, Burning, Deloris p, Dull, Numbness, Elqx-kyl-wnjygnu, Sharp, Shooting, Spreading, Stabbing, Throbbing, Tingling Severity of pain at its worst 10/10 Severity of pain at its best 6/10 Severity of average pain 6/10 Severity of pain right now 5/10 Medication Details Do you have a lock b ox or safe place for medication away from minors and/or others? Yes Do you have any leftover pain medication building up at your house? No Do you understand that pain medication c an be addicting and can cause overdose? Yes Do you feel you can REDUCE the amount of medication you take today? No Opioid Assessment Tools Pill Count 42 Last Urine Drug Screen None Today's Rapid Urine Drug Screen will be sent for confirmation [place] Prescription Monitoring Program [place] PDMP, found to be consistent with treatment history, reviewed today Treatment History Test undergone in the past None Ipma Past medication you have taken Oxycodone 7.5/325 #45 Treatments you have had None Ipma Examination Category Sub-Category Detail Notes Category Not es General Examination Constitutional: Patient appears to be appropriate looking for stated age. Patient is awake, alert and oriented to person, place and time with recent/ remote memory intact. in no acute distress noted. Mood/Affect: Normal HEENT: Atraumatic, normocephalic. PERRL Respiratory: Visual Inspection: breathing equal bilaterally, trachea midline. Cardiovascular: Cardiac rhythm is regular. Gastrointestinal: Abdomen grossly normal. No obvious firmness, tenderness or masses noted. Thoracic Spine: Paraspinal tenderness R>L with tightness Lumbar Spine: Inspection of the lumbar spine reveals normal lordosis with no obvious scoliosis or asymmetry noted. Lumbar facet palpation produced lower back pain. ROM greatly reduced in all directions. Hyperextension and bilateral facet loading maneuvers produces back pain. Multiple trigger points in bilateral paraspinal muscles noted. Coordination: Antalgic gait. SI Joints - palpation bilaterally failed to reproduce pain. JUANCHO negative bilaterally. Gaenslen negative bilaterally. SI compression negative bilaterally. Neurology - Straight Leg Raising: Right: 60 degrees and Negative. Left: 60 degrees and negative. Motor Strength: Left LE strength - Flexors: 4+/5. Right LE strength - Flexors: 4+/5. Left LE strength - Extensors: 4+/5. Right LE strength - Extensors: 4+/5. Left LE Tone: Normal. Right LE Tone: Normal. Reflexes: Patellar reflex normal 2+ Achilles reflex bilaterally 1+ Intermittent paresthesias in bilateral legs to feet mainly in an L4-5 distribution Progress Notes * Elvis SHAIKH EDOB:[birth year] (49 yo M)Acc No.[id number]:08/06/2025 Progress Notes Patient: Elvis Daniels Provider: Saundra Pinon D.O. :1975 A ge:49 Y S ex:Male Date:08/06/2025 Address:[address] [place], [place] [id number] Pcp:Mahad Silvestre MD Check In:01:[address] REPOR[address] Subjective: * Chief Complaints: * 1 month f/u * HPI: P ain Details: Pain Location G eneralized (all over). Quality A geraldine, Burning, Deep, Dull, Numbness, Xfms-zub-owbadwd, Sharp, Shooting, Spreading, Stabbing, Throbbing, Tingling. Severity of pain at its worst 1 0/10. Severity of pain at its best 6/10. Severity of average pain 6 /10. Severity of pain right now 5 /10. M edication Details: Do you have a lock box or safe place for medication away from minors and/or others? Y es. Do you have any leftover pain medication building up at your house? N o. Do you understand that pain medication can be addicting and can cause overdose? Y es. Do you feel you can REDUCE the amount of medication you take today? N o. O pioid Assessment Tools: Pill Count 4 2. Last Urine Drug Screen N one. Today's Rapid Urine Drug Screen w ill be sent for confirmation . [place]cription Monitoring [place], found to be consistent with treatment history, reviewed today. T reatment History: Test undergone in the past N one Ipma. Past medication you have taken O xycodone 7.5/325 #45. Treatments you have had N one Ipma. P jax Note: It's gotten hard to handle. The pain is in my neck and goes around and into my shoulders. Patient returns to the clinic complaining of headaches. He reports that he has really struggled with this head pain that radiates into his shoulders. * Medical History: Diabetes Seizures Depression Arthritis Kidney infection Kidney stones Swelling of multiple joints Thyroid disease Medical History Verified * Surgical History: testical kidney stone Surgical History verified. * Social History: M iscellaneous: S exual abuse: no. Sexually active: yes. S ocial History Verified. * Medications: N pj-ApuzviplsEWGRCW-Rquyjlukndrxk 7.5-325 MG Tablet 1 tablet as needed Orally every 6 hrs traMADol HCl 50 MG Tablet 1 tablet as needed Orally every 6 hours Medication List reviewed and reconciled with the patientNot-Taking oxyCODONE-Acetaminophen 7.5- 325 MG Tablet 1 tablet as needed Orally every 6 hrs Not-Taking traMADol HCl 50 MG Tablet 1 tablet as needed Orally every 6 hours Medication List reviewed and reconciled with the patient Objective: * Vitals: H t: 69 in, Wt:239lbs, Wt-k.41 kg, BMI:35.29Index, Ht-cm: 175.26 cm. * Examination: G eneral Examination: C onstitutional: Patient appears to be appropriate looking for stated age. Patient is awake, alert and oriented to person, place and time with recent/ remote memory intact. in no acute distress noted. Mood/Affect: Normal HEENT: Atraumatic, normocephalic. PERRL Respiratory: Visual Inspection: breathing equal bilaterally, trachea midline. Cardiovascular: Cardiac rhythm is regular. Gastrointestinal: Abdomen grossly normal. No obvious firmness, tenderness or masses noted. Thoracic Spine: Paraspinal tenderness R>L with tightness Lumbar Spine: Inspection of the lumbar spine reveals normal lordosis with no obvious scoliosis or asymmetry noted. Lumbar facet palpation produced lower back pain. ROM greatly reduced in all directions. Hyperextension and bilateral facet loading maneuvers produces back pain. Multiple trigger points in bilateral paraspinal muscles noted. Coordination: Antalgic gait. SI Joints - palpation bilaterally failed to reproduce pain. JUANCHO negative bilaterally. Gaenslen negative bilaterally. SI compression negative bilaterally. Neurology - Straight Leg Raising: Right: 60 degrees and Negative. Left: 60 degrees and negative. Motor Strength: Left LE strength - Flexors: 4+/5. Right LE strength - Flexors: 4+/5. Left LE strength - Extensors: 4+/5. Right LE strength - Extensors: 4+/5. Left LE Tone: Normal. Right LE Tone: Normal. Reflexes: Patellar reflex normal 2+ Achilles reflex bilaterally 1+ Intermittent paresthesias in bilateral legs to feet mainly in an L4-5 distribution. Assessment: * Assessment: 1. C hronic pain syndrome - G89.4 (Primary) 2 . L umbar radiculopathy - M54.16 3 . L umbar spondylosis - M47.816 4 . A bnormality of gait and mobility - R26.9 5 . L gilson term (current) use of opiate analgesic - Z79.891 Plan: * Treatment: 2. L gilson term (current) use of opiate analgesic L AB: Urine Drug Screen (cup read) - 39772 (Collection Date & Time - 08/06/2025) n egative all L AB: Urine Confirmation Panel (instrument) - [id number] (Collection Date & Time - 08/06/2025) 3. O thers Notes: IGraciela, am scribing for Dr. Jas Pinon. I, Dr. Jas Pinon, personally performed the services described in this documentation, as scribed by Graciela Peterson, and it is both accurate and complete. * Procedure Codes: 8 0305 DRUG TEST PRSMV DIR OPT OBS [id number] DRUG TEST PRSMV CHEM ANLYZR * Follow Up: 3 Weeks Billing Information: * Procedure Codes: 03570 DRUG TEST [place]SM[place]BS [place]. [address] DRUG TEST PRSMV CHEM ANLYZR. Care Plan Details* * Electronic signature of Jas Pinon DO on 08/19/2025 at 06:56 PM CDT Sign off status: Pending * Provider: Saundra Pinon D.O. Date: 0 08/06/2025 Generated for Gregory alvarez/Julia/Tanmay on: 1 06:56 PM CDT
--- OUTSIDE RECORDS SUMMARY | 2025-08-19 18:56 | XMS_ITS | Patient Health Record ---
Author Organization [facility] Address [address] [place] [address] Care Team Providers Care Library Monitor Name Role Phone Mahad Silvestre MD Primary Care Provider Jas Devi Unavailable [phone] Allergies Allergen (clinical drug ingredient) Drug/Non Drug Allergy documented on EMR Reaction Allergy Type Onset Date Status Substance with penicillin structure and antibacterial mechanism of action (substance) Penicillins hives Drug Allergy Active Substance with sulfonamide structure and antibacterial mechanism of action (substance) Sulfa Antibiotics hives Drug Allergy Active Results Component Value Reference Range Flag Notes Urine Drug Screen (cup read) - 69821 Reviewed date:08/06/2025 03:30:20 PM Interpretation:negative all Performing Lab: Notes/Report: negative all Urine Confirmation Panel (in strument) - [id number] Reviewed date:08/12/2025 12:35:27 PM Interpretation: Performing Lab: [...] Provider Last Name Nirmala Referring Provider Speciality [facility] Referred Organization [facility] Referred Provider Nura Mota Referred Address [address] [facility],[address], Referred Provider Specialty Pain Medicin e General [...] Status Risk Notes Problem Chronic pain syndrome (103239585) Chronic pain syndrome (G89.4) Active confirmed Problem Lumbar radiculopathy (970936296) Lumbar radiculopathy (M54.16) Active confirmed Problem Lumbar spondylosis (254212550) Lumbar spondylosis (M47.816) Active confirmed Problem Chronic pain (11416739) Chronic pain (G89.29) Active confirmed Problem Abnormal gait (38616416) Abnormality of gait and mobility (R26.9) Active confirmed Vital Signs Height-cm 175.26 cm 08/06/2025 Weight-kg 108.41 kg 08/06/2025 Height 69 in 08/06/2025 Weight 239 lbs 08/06/2025 BMI 35.29 kg/m2 08/06/2025 Encounters Encounter Location Date Provider Diagnosis [facility] [address] [place] [address] 08/06/2025 Jas Pinon Chronic pain syndrom e G89.4 ; Lumbar radiculopathy M54.16 ; Lumbar spondylosis M47.816 ; Abnormality of gait and mobility R26.9 and 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 [facility] [address] [facility] [address] 07/03/2025 Jas Pinon Chronic pain syndrom e G89.4 ; Lumbar radiculopathy M54.16 ; Lumbar spondylosis M47.816 ; Abnormality of gait and mobility R26.9 and alf (current) use of opiate analgesic Z79.891 Assessments [...] gait and mobility (ICD-10 - R26.9) 07/03/2025 alf (current) use of opiate analgesic (ICD-10 - Z79.891) 08/06/2025 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 (ICD-10 - [...] Name:Jas Pinon, 08/27/2025 02:00:00 PM, [address] [place], [address], Insurance Providers Payer Name Payer Address Payer Phone Subscriber Number Group Number Insured Name Patient Relationship to Insured Coverage Start Date Coverage End Date [place] Medicaid [address] [place] [address] [id number] Elvis Saleh Self - patient is the insured Medical (General) History Medical History History ICD Code Diabetes seizures Depression Arthritis kidney infection kidney stones Swelling of multiple joints Thyroid disease Surgical History Surgery Date(Month/Year) testical kidney stone
--- OUTSIDE RECORDS SUMMARY | 2025-08-19 18:56 | XMS_ITS | Clinical Summary ---
Author Organization [facility] Address [address] [facility] [address] [place] [address] Care Team Providers Care Police Guard Name Role Phone Unavailable Primary Care Provider [...] 1,000 Units by mouth daily. Active multivit,calc,m hf-CI-E0-lycop (One-A-Day Men's Complete) 240 mcg-30 mcg- 300 mcg Tablet Take 1 Tablet by mouth daily. Active naloxone (Narcan) 4 mg/spray [place], Non-Aerosol Administer 4 mg in one nostril [...] thereafter. 200 Tablet 3 09/21/2024 1:00 PM [facility] 4 Active glimepiride (AMARYL) 2 mg tablet Take 1 Tablet (2 mg) by mouth daily with breakfast. DIABETES 100 Tablet 3 09/21/2024 1:00 PM [facility] 4 Active Active Problems Problem Noted Date [...] on file Legal Sex Male 4:33 AM [facility] Gender Identity Not on file Sexual Orientation Not on file Last Filed Vital Signs Vital Sign Reading Time Taken Comments Blood Pressure 147/88 09/21/2024 11:15 AM [facility] Pulse 80 09/21/2024 11:15 AM [facility] Temperature 36.3 C (97.4 F) 09/21/2024 11:15 AM [facility] Respiratory Rate 18 09/21/2024 11:15 AM [facility] Oxygen Saturation 98% 09/21/2024 11:15 AM [facility] Inhaled Oxygen Concentration - - Weight 108.9 kg (240 lb) 09/18/2024 10:39 PM [facility] Height 180.3 cm (5' 11 ) 09/18/2024 10:39 PM [facility] Body Mass Index 33.47 09/18/2024 10:39 PM [facility] Plan of Treatment Health Maintenance Due Date [...] Comments HEMOGLOBIN A1C Routine 09/19/2024 6:26 AM [facility] from Last 3 Months or Most Recently Relevant to Health Maintenance Results * (ABNORMAL) HEMOGLOBIN A1C (09/19/2024 6:26 AM P[facility]ING CO[facility]) HEMOGLOBIN A1C 12.0(H) <=5.6 % 09/20/2024 11:05 AM [facility] [employer] [facility] EST. AVG GLUCOSE, A1C 298 mg/dL 09/20/2024 11:05 AM [facility] Blood Venipuncture / Unknown 09/19/2024 6:26 AM [facility] CO[facility] 09/19/2024 6:50 AM [facility] Narrative [facility] - 09/20/2024 11:05 AM [facility] HGB A1C INTERPRETATION NORMAL: <5.7% PRE-DIABETES: 5.7 - 6.4% DIABETES: 6.5% OR GREATER Delvin Smalls MD CHEMISTRY ORDERABLES Final Result [facility] [place] # [id number] [address] [facility] [place] [address] from Last 3 Months or Most Recently Relevant to Health Maintenance Insurance MEDICAID [place] [employer] Medicaid Advance Directives For more information, please contact: [phone] * Full Code (Latest Code Status on File) Date Activated Date Inactivated Comments 09/18/2024 8:47 PM 09/21/2024 3:04 PM
[2025-08-19 18:59] VITALS: BP 133/85; PULSE 96; RESP 13; TEMP 36.6; O2SAT 98; BMI 32.1
[2025-08-19 19:16] LABS: Glucose Urine UA Negative (Normal); Nitrate Urine Negative (Negative); Specific Gravity, Urine 1.023 (1.005-1.030)
--- NOTE | 2025-08-19 19:19 | W.ED.MALEGU ---
HPI - Male Genitourinary General: Chief complaint: Urogenital-Male Stated complaint: Pain in Bladder Time Seen by Provider: 08/19/25 19:08 History of Present Illness: 49-year-old man who presents emergency room with continued neurological complaints. He is diagnosed with a about 3 weeks ago. He has been seen now for the fourth time in the emergency room with this. He has been instructed to go see urology but has not done this so far. No fever. He comes in today complaining of urinary frequency. No fevers. He says he is been too busy to go to the urology appointment. I stressed again to him that he must follow-up with them. Related Data Home Medications ?Medication ?Instructions ?Recorded ?Confirmed oxycodone-acetaminophen 7.5 mg-325 1 tab PO Q4H PRN pain 09/18/24 06/24/25 mg tablet tramadol 50 mg tablet 50 mg PO Q4H PRN pain 09/18/24 06/24/25 fluconazole 150 mg tablet 150 mg PO .QOD x14d 02/24/25 06/24/25 mupirocin 2 % topical ointment 1 applic topical TID PRN until 02/24/25 06/24/25 healed empagliflozin 10 mg tablet mg PO 03/11/25 06/24/25 (Jardiance) furosemide 20 mg tablet mg PO 03/11/25 06/24/25 potassium chloride 8 mEq meq PO 03/11/25 06/24/25 tablet,extended release tamsulosin 0.4 mg capsule mg PO 03/11/25 06/24/25 varenicline tartrate 1 mg tablet mg PO 03/11/25 06/24/25 Previous Rx's ?Medication ?Instructions ?Recorded clotrimazole-betamethasone 1 1 applic topical BID 4 weeks #45 03/11/25 %-0.05 % topical cream grams hydrocodone 5 mg-acetaminophen 325 1 tab PO Q6H PRN pain #20 tabs 06/27/25 mg tablet promethazine 25 mg tablet 25 mg PO Q6H PRN nausea and 06/27/25 vomiting #20 tabs tamsulosin 0.4 mg capsule 0.4 mg PO DAILY #14 caps 06/27/25 hydrocodone 5 mg-acetaminophen 325 1 tab PO Q6H PRN pain #14 tabs 08/01/25 mg tablet ondansetron 4 mg disintegrating 4 mg PO Q6H PRN nausea and 08/01/25 tablet vomiting #14 tabs tamsulosin 0.4 mg capsule (Flomax) 0.4 mg PO DAILY #5 caps 08/01/25 hydrocodone 5 mg-acetaminophen 325 1 tab PO Q6H PRN pain #20 tabs 08/14/25 mg tablet ondansetron 8 mg disintegrating 8 mg PO Q6H #14 tabs 08/14/25 tablet polyethylene glycol 3350 17 17 g PO DAILY #510 grams 08/14/25 gram/dose oral powder (Miralax) tamsulosin 0.4 mg capsule (Flomax) 0.4 mg PO DAILY #30 caps 08/14/25 cefdinir 300 mg capsule 300 mg PO BID 7 days #14 caps 08/19/25 Allergies Allergy/AdvReac Type Severity Reaction Status Date / Time adhesive tape Allergy Unknown Verified 08/19/25 19:05 celecoxib (From Celebrex) Allergy Unknown Verified 08/19/25 19:05 cephalexin (From Keflex) Allergy Unknown Verified 08/19/25 19:05 doxycycline Allergy Unknown Verified 08/19/25 19:05 ibuprofen Allergy Unknown Verified 08/19/25 19:05 levofloxacin (From Levaquin) Allergy Unknown Verified 08/19/25 19:05 methadone Allergy ALGY-Anaphy Verified 08/19/25 19:05 laxis milnacipran (From Savella) Allergy Unknown Verified 08/19/25 19:05 morphine Allergy Unknown Verified 08/19/25 19:05 Penicillins Allergy unknown Verified 08/19/25 19:05 rofecoxib (From Vioxx) Allergy Unconscious Verified 08/01/25 16:01 Sulfa (Sulfonamide Allergy ALGY-Rash Verified 08/01/25 16:01 Antibiotics) terbinafine (From Lamisil) Allergy Unknown Verified 08/01/25 16:01 trazodone Allergy Unknown Verified 08/01/25 16:01 Review of Systems Narrative: Constitutional symptoms: Negative except as documented in HPI. Skin symptoms: Negative except as documented in HPI. Eye symptoms: Negative except as documented in HPI. ENMT symptoms: Negative except as documented in HPI. Respiratory symptoms: Negative except as documented in HPI. Cardiovascular symptoms: Negative except as documented in HPI. Gastrointestinal symptoms: Negative except as documented in HPI. Genitourinary symptoms: Negative except as documented in HPI. Musculoskeletal symptoms: Negative except as documented in HPI. Neurologic symptoms: Negative except as documented in HPI. Psychiatric symptoms: Negative except as documented in HPI. Endocrine symptoms: Negative except as documented in HPI. [facility] ED PFSH: Medical History (Updated 08/19/25 @ 19:49 by Abbie Bhatt MD) Chronic neck pain Chronic left shoulder pain Anxiety and depression Opioid contract exists Encounter for long-term use of opiate analgesic Fibromyalgia DDD (degenerative disc disease), lumbar Pain of paraspinal muscle Surgical History Status post laser lithotripsy of ureteral calculus Social History Smoking and tobacco/nicotine status: current every day tobacco/nicotine user cigarettes Packs smoked per day: 1.5 Alcohol intake: never Substance/Drug Use: never Physical Exam Narrative: EXAM NARRATIVE: General: Alert, no acute distress. Skin: Warm, dry. Head: Normocephalic, atraumatic. Neck: Supple, trachea midline. Eye: Extraocular movements are intact. Ears, nose, mouth and throat: mucosa moist. Cardiovascular: Regular, Normal peripheral perfusion. Respiratory: Lungs are clear to auscultation, respirations are non-labored, breath sounds are equal, Symmetrical chest wall expansion. Gastrointestinal: Soft, Nontender, Non distended Musculoskeletal: Normal ROM, no deformity. Neurological: Alert and oriented, No focal neurological deficit observed. Psychiatric: Cooperative, appropriate mood & affect. Course Vital Signs: Vital signs: Vital Signs Temperature 97.9 F 08/19/25 18:59 Pulse Rate 96 08/19/25 18:59 Respiratory Rate 13 08/19/25 18:59 Blood Pressure 133/85 08/19/25 18:59 Pulse Oximetry 98 08/19/25 18:59 Oxygen Delivery Me thod Room Air 08/19/25 18:59 MDM - Male Medical Decision Making Medical decision making: Differential diagnosis including but not limited to and based on the above HPI, review of systems and physical exam: Patient has a known kidney stone. No fevers. Basic lab work being run and I am going to did not do yet another CT scan today. Orders placed to evaluate differential diagnosis based on the above differential, HPI and physical exam Lab Review: Laboratory results were reviewed and interpreted by myself the emergency room physician. No leukocytosis. No anemia. No renal failure. Urine does not appear overtly infected but he does have 5-10 whites and 1+ bacteria with some dysuria type symptoms I am going to place him on Omnicef. He has an allergy to Keflex. When I asked him about this he says it was stomach upset. . I reviewed the patient's medical record. Reexamination: Patient remained stable. No increased work of breathing. No altered mental status. No focal motor deficits. Assessment and plan: Kidney stones - Discharged home - Discussed plan with patient. Answered any questions. - Evaluation and treatment of this problem were appropriate in the emergency setting. Lab Data 08/19/25 19:23 08/19/25 19:23 Laboratory Results WBC 10.35 10^3/uL (3.29-11.43) 08/19/25 19:23 RBC 5.56 10^6/uL (3.85-5.65) 08/19/25 19:23 Hgb 18.40 g/dL (11.27-16.99) H 08/19/25 19:23 Hct 50.9 % (37-53) 08/19/25 19:23 MCV 91.5 fl (82-101) 08/19/25 19:23 MCH 33.1 pg (27-33) H 08/19/25 19:23 MCHC 36.1 g/dL (30-55) 08/19/25 19:23 RDW 12.2 % (12.1-15.1) 08/19/25 19:23 Plt Count 176 10^3/cmm (157-399) 08/19/25 19:23 MPV 10.9 fL (7.4-10.4) H 08/19/25 19:23 Neut % (Auto) 72.1 % 08/19/25 19:23 Lymph % (Auto) 20.7 % 08/19/25 19:23 [place] % (Auto) 6.1 % 08/19/25 19:23 Eos % (Auto) 0.0 % 08/19/25 19:23 Baso % (Auto) 0.7 % 08/19/25 19:23 Neut # (Auto) 7.47 10^3/uL (1.8-7.7) 08/19/25 19:23 Lymph # (Auto) 2.1 10^3/uL (0.8-4.8) 08/19/25 19:23 [place] # (Auto) 0.6 10^3/uL (0.2-0.9) 08/19/25 19:23 Eos # (Auto) 0.0 10^3/uL (0.0-0.8) 08/19/25 19:23 Baso # (Auto) 0.1 10^3/uL (0.0-0.1) 08/19/25 19:23 Nucleated RBC % (auto) 0 % 08/19/25 19:23 Nucleated RBCs # 0.0 /100WBC 08/19/25 19:23 Sodium 141 mmol/L (136-145) 08/19/25 19:23 Potassium 4.4 mmol/L (3.5-5.1) 08/19/25 19:23 Chloride 104 mmol/L (98-107) 08/19/25 19:23 Carbon Dioxide 24 mmol/L (22-29) 08/19/25 19:23 Anion Gap 17.4 (5-19) 08/19/25 19:23 BUN 14 mg/dL (6-20) 08/19/25 19:23 Creatinine 0.9 mg/dL (0.7-1.2) 08/19/25 19:23 Glucose 89 mg/dL (65-115) 08/19/25 19:23 Calculated Osmolality 292 mOsm/kg (285-295) 08/19/25 19:23 Calcium 9.6 mg/dL (8.5-10.5) 08/19/25 19:23 Total Bilirubin 0.8 mg/dL (0.15-1.2) 08/19/25 19:23 AST 14 U/L (0-40) 08/19/25 19:23 ALT 9 U/L (0-41) 08/19/25 19:23 Alkaline Phosphatase 121 U/L (40-130) 08/19/25 19:23 Total Protein 8.0 g/dL (6.6-8.7) 08/19/25 19:23 Albumin 4.7 g/dL (3.5-5.2) 08/19/25 19:23 Globulin 3.3 g/dL (1.3-4.6) 08/19/25 19:23 Urine Color [place] (Yellow) A 08/19/25 19:04 Urine Appearance Cloudy (CLEAR) A 08/19/25 19:04 Urine pH 5.5 (5-7) 08/19/25 19:04 Ur Specific [place] 1.023 (1.005-1.030) 08/19/25 19:04 Urine Protein Trace (Negative) A 08/19/25 19:04 Urine Glucose (UA) Negative (Normal) 08/19/25 19:04 Urine Ketones Trace (Negative) 08/19/25 19:04 Urine Blood 3+ (Negative) A 08/19/25 19:04 Urine Nitrate Negative (Negative) 08/19/25 19:04 Urine Bilirubin Negative (Negative) 08/19/25 19:04 Urine Urobilinogen 1.0 mg/dL (Negative) 08/19/25 19:04 Ur Leukocyte Esterase Trace (Negative) A 08/19/25 19:04 Urine RBC >100 /hpf (0-2) H 08/19/25 19:04 Urine WBC 5-10 /hpf (0-5) H 08/19/25 19:04 Ur Squamous Epith Cells None /hpf (0-5) 08/19/25 19:04 Calcium Oxalate Crystal 0-4 /hpf H 08/19/25 19:04 Amorphous Sediment Not Reportable 08/19/25 19:04 Urine Bacteria 1+ /hpf (NONE) H 08/19/25 19:04 Urine Mucus 1+ /hpf 08/19/25 19:04 No radiology studies performed this visit Discharge Plan Discharge Patient Disposition: Home Clinical Impression: Ureterolithiasis Condition: Stable Prescriptions: New cefdinir 300 mg capsule 300 mg PO BID 7 Days Qty: 14 0RF No Action clotrimazole-betamethasone 1-0.05 % cream 1 applic topical BID 28 Days Qty: 45 3RF varenicline tartrate 1 mg tablet PO furosemide 20 mg tablet PO potassium chloride 8 mEq tablet extended release PO tamsulosin 0.4 mg capsule PO Jardiance 10 mg tablet PO tramadol 50 mg tablet 50 mg PO Q4H MDD 4 per day PRN (Reason: pain) oxycodone-acetaminophen 7.5-325 mg tablet 1 tab PO Q4H MDD 4 per day PRN (Reason: pain) hydrocodone-acetaminophen 5-325 mg tablet 1 tab PO Q6H PRN (Reason: pain) Qty: 14 0RF ondansetron 4 mg tablet,disintegrating 4 mg PO Q6H PRN (Reason: nausea and vomiting) Qty: 14 0RF tamsulosin [Flomax] 0.4 mg capsule 0.4 mg PO DAILY Qty: 5 0RF hydrocodone-acetaminophen 5-325 mg tablet 1 tab PO Q6H PRN (Reason: pain) Qty: 20 0RF ondansetron 8 mg tablet,disintegrating 8 mg PO Q6H Qty: 14 0RF Rx Instructions: Take 1/2-1 tab every 6 hours as needed for nausea and vomiting tamsulosin [Flomax] 0.4 mg capsule 0.4 mg PO DAILY Qty: 30 0RF polyethylene glycol 3350 [Miralax] 17 gram/dose powder 17 g PO DAILY Qty: 510 0RF Rx Instructions: Take 1 scoop daily while taking pain medications. fluconazole 150 mg tablet 150 mg PO .QOD mupirocin 2 % ointment 1 applic TOPICAL TID PRN (Reason: until healed) hydrocodone-acetaminophen 5-325 mg tablet 1 tab PO Q6H PRN (Reason: pain) Qty: 20 0RF promethazine 25 mg tablet 25 mg PO Q6H PRN (Reason: nausea and vomiting) Qty: 20 0RF tamsulosin 0.4 mg capsule 0.4 mg PO DAILY Qty: 14 0RF Discharge Orders: Discharge ED (Routine); Ordered 08/19/25 Ordered By: Abbie Bhatt Referrals: Chandrakant Stern [Referring, Urology] - 1-3 days Referral Note: Please call for follow-up with urology as soon as possible. This may need intervention. Mahad Silvestre MD [Primary Care Provider, Family Practice] Discharge Diet: Usual diet Discharge Activity: Increase activity as tolerated Patient Instructions: Kidney Stones (ED), Opioid Safety, Pain Management, Patient Portal & Summer Instructions Activity Restrictions/Additional Instructions: Call for appointment with urology. If fever (temp >100.4) develops return to the emergency room immediately, as this is an emergency. Take nausea medication prior to taking pain medications. Thank you for choosing [facility] for your healthcare needs today. You have been screened and evaluated and felt safe for discharge. Health conditions do change or evolve sometimes and as such it is important that you follow up with your Primary Doctor to be re checked, 3-5 days is a general good time frame for follow up. You are always welcome to return to the ED for re assessment if your symptoms are worsening or you have new concerns Print Language: Luxembourgish Coding Level of Care Code ED [facility] [employer] for Ludwig Waters
[2025-08-19 19:30] LABS: Hematocrit 50.9 % (37-53); Hemoglobin 18.40 g/dL (11.27-16.99); Mean Corpuscular HGB Conc 36.1 g/dL (30-55); Mean Corpuscular Hemoglobin 33.1 pg (27-33); Mean Corpuscular Volume 91.5 fl (82-101); Nucleated Red Blood Cells % 0 %; Platelet Count 176 10^3/cmm (157-399); Red Blood Count 5.56 10^6/uL (3.85-5.65); White Blood Count 10.35 10^3/uL (3.29-11.43)
[2025-08-19 19:45] LABS: Alanine Aminotransferase 9 U/L (0-41); Albumin Level 4.7 g/dL (3.5-5.2); Alkaline Phosphatase 121 U/L (40-130); Anion Gap 17.4 (5-19); Aspartate Amino Transferase 14 U/L (0-40); Blood Urea Nitrogen 14 mg/dL (6-20); Calcium 9.6 mg/dL (8.5-10.5); Carbon Dioxide 24 mmol/L (22-29); Chloride 104 mmol/L (98-107); Creatinine Clr Calc Pharmacy 120.7089; Globulin 3.3 g/dL (1.3-4.6); Glucose 89 mg/dL (65-115); Osmolality Calculated 292 mOsm/kg (285-295); Potassium 4.4 mmol/L (3.5-5.1); Sodium 141 mmol/L (136-145); Total Protein 8.0 g/dL (6.6-8.7)
[2025-08-19 20:09] VITALS: BP 122/68; PULSE 86; O2SAT 99
== END 2025-08-19 20:10 | disposition home or self-care (01) ==
PROVIDERS: Emergency Provider Emergency Medicine; PCP Family Medicine
DX: N20.1 Calculus of ureter (principal); F17.210 Nicotine dependence, cigarettes, uncomplicated
CPT/HCPCS: 51798; 80053; 81001; 85025; 87086; 99284; J7030

== ENCOUNTER 2025-09-24 14:23 | Emergency (ER) | payer MEDICAID, SELFPAY ==
--- NOTE | 2025-09-24 14:28 | W.ED.GENADLT ---
HPI - General Adult General: Chief complaint: Urogenital-Male Stated complaint: Bladder Pain hurts when pee's Time Seen by Provider: 09/24/25 14:26 History of Present Illness: 49-year-old male presents emergency room with complaint of flank pain and hematuria. He has mild flank pain he has had 3 CTs in the last approximately 3 months for a 3 mm left-sided kidney stone. Initially was proximal to it was mid and finally distal in the serial CTs he is not having any significant flank pain now but still has hematuria denies any dysuria urgency or frequency no vomiting or diarrhea he is not currently on any antibiotics he is on tamsulosin. Associated symptoms: Deny chest pain, dyspnea or rash Related Data Home Medications ?Medication ?Instructions ?Recorded ?Confirmed oxycodone-acetaminophen 7.5 mg-325 1 tab PO Q4H PRN pain 09/18/24 09/24/25 mg tablet empagliflozin 10 mg tablet 10 mg PO DAILY 03/11/25 09/24/25 (Jardiance) ondansetron 8 mg disintegrating 4 - 8 mg PO Q6H PRN Nausea And 09/24/25 09/24/25 tablet Vomiting tamsulosin 0.4 mg capsule 0.4 mg PO DAILY 09/24/25 09/24/25 varenicline tartrate 1 mg tablet 1 mg PO BID 09/24/25 09/24/25 Previous Rx's ?Medication ?Instructions ?Recorded clotrimazole-betamethasone 1 1 applic topical BID 4 weeks #45 03/11/25 %-0.05 % topical cream grams hydrocodone 5 mg-acetaminophen 325 1 tab PO Q6H PRN pain #20 tabs 08/14/25 mg tablet polyethylene glycol 3350 17 17 g PO DAILY #510 grams 08/14/25 gram/dose oral powder (Miralax) Allergies Allergy/AdvReac Type Severity Reaction Status Date / Time adhesive tape Allergy Unknown Verified 08/26/25 07:28 celecoxib (From Celebrex) Allergy Unknown Verified 08/26/25 07:28 cephalexin (From Keflex) Allergy Unknown Verified 08/26/25 07:28 doxycycline Allergy Unknown Verified 08/26/25 07:28 ibuprofen Allergy Unknown Verified 08/26/25 07:28 levofloxacin (From Levaquin) Allergy Unknown Verified 08/26/25 07:28 methadone Allergy ALGY-Anaphy Verified 08/26/25 07:28 laxis milnacipran (From Savella) Allergy Unknown Verified 08/26/25 07:28 morphine Allergy Unknown Verified 08/26/25 07:28 Penicillins Allergy unknown Verified 08/26/25 07:28 rofecoxib (From Vioxx) Allergy Unconscious Verified 08/26/25 07:28 Sulfa (Sulfonamide Allergy ALGY-Rash Verified 08/26/25 07:28 Antibiotics) terbinafine (From Lamisil) Allergy Unknown Verified 08/26/25 07:28 trazodone Allergy Unknown Verified 08/26/25 07:28 Review of Systems Const: Denies: fever(s) or chills Card: Denies: chest pain Resp: Denies: dyspnea GI: Denies: abdominal pain : Reports: flank pain and hematuria; Denies: dysuria, urinary frequency or urinary urgency Musc: Denies: neck pain or back pain Skin/Breast: Denies: rash PFSH ED PFSH: Medical History Chronic neck pain Chronic left shoulder pain Anxiety and depression Opioid contract exists Encounter for long-term use of opiate analgesic Fibromyalgia DDD (degenerative disc disease), lumbar Pain of paraspinal muscle Surgical History Status post laser lithotripsy of ureteral calculus Social History Smoking and tobacco/nicotine status: current every day tobacco/nicotine user cigarettes Packs smoked per day: 1.5 Alcohol intake: never Substance/Drug Use: never Physical Exam Const: COMMON NORMALS: no acute distress GENERAL APPEARANCE: cooperative and comfortable ORIENTATION/CONSCIOUSNESS: Yes awake, Yes oriented to person, Yes oriented to place and Yes oriented to time HENMT: COMMON NORMALS: normocephalic, atraumatic and hearing grossly normal bilaterally HEAD & SCALP: normocephalic and atraumatic Resp: COMMON NORMALS: normal respiratory effort, No retractions, No use of accessory muscles and clear to auscultation bilaterally AUSCULTATION: clear to auscultation bilaterally Cardio: COMMON NORMALS: regular rate, regular rhythm and No murmurs present (Cardio) RATE: regular rate RHYTHM: regular rhythm GI: COMMON NORMALS: Soft to palpation and No hepatosplenomegaly present AUSCULTATION: Yes normoactive bowel sounds PALPATION: Yes Soft to palpation, No Tenderness to palpation present (GI), No Guarding due to palpation present (GI) and Yes No hepatosplenomegaly present Extremity: COMMON NORMALS: normal to inspection, capillary refill normal, no clubbing, cyanosis or edema, no calf tenderness and no pedal edema Neuro: SENSORIUM/ORIENTATION: Yes oriented to person, Yes oriented to place and Yes oriented to time Skin: COMMON NORMALS: no rashes or lesions noted GENERAL SKIN EXAM: no rashes or lesions noted Course Vital Signs: Vital signs: Vital Signs Temperature 98.3 F 09/24/25 14:36 Pulse Rate 82 09/24/25 16:10 Respiratory Rate 16 09/24/25 16:10 Blood Pressure 123/80 09/24/25 16:10 Pulse Oximetry 95 09/24/25 16:10 Oxygen Delivery Me thod Room Air 09/24/25 14:38 MDM - General Adult Medical Decision Making Chart reviewed patient has had multiple CTs for the stone. Essentially CTs document progression through the ureter at this point his pain is mostly resolved he does not have pain consistent with a nephrolithiasis at this time he still has hematuria CT shows signs of a recently passed kidney stones with dilated ureter but no stone within the ureter. He has a follow-up appointment with urology in [place] I have asked staff to forward to the CT to [place] so his urologist can review it he will also be given a hardcopy. Medical Records I reviewed the patient's medical records. Lab Data I reviewed the patient's lab results. 09/24/25 15:14 09/24/25 15:14 Radiology Impressions Abdomen/Pelvis CT 09/24/25 14:38 IMPRESSION: 1. Significant improvement in the previously described LEFT hydroureteronephrosis as described on 08/14/2025. 2. Distal LEFT ureter calcification is now in the LEFT urinary bladder. The distal LEFT ureter now with more inflammatory changes compared to the prior study suggesting recent movement of the stone. 3. Negative RIGHT kidney. No hydronephrosis. 4. Cholelithiasis without acute cholecystitis. Laboratory Results WBC 7.29 10^3/uL (3.29-11.43) 09/24/25 15:14 RBC 5.60 10^6/uL (3.85-5.65) 09/24/25 15:14 Hgb 18.20 g/dL (11.27-16.99) H 09/24/25 15:14 Hct 51.6 % (37-53) 09/24/25 15:14 MCV 92.1 fl (82-101) 09/24/25 15:14 MCH 32.5 pg (27-33) 09/24/25 15:14 MCHC 35.3 g/dL (30-55) 09/24/25 15:14 RDW 11.9 % (12.1-15.1) L 09/24/25 15:14 Plt Count 144 10^3/cmm (157-399) L 09/24/25 15:14 MPV 11.2 fL (7.4-10.4) H 09/24/25 15:14 Neut % (Auto) 71.1 % 09/24/25 15:14 Lymph % (Auto) 21.9 % 09/24/25 15:14 [place] % (Auto) 6.0 % 09/24/25 15:14 Eos % (Auto) 0.0 % 09/24/25 15:14 Baso % (Auto) 0.7 % 09/24/25 15:14 Neut # (Auto) 5.18 10^3/uL (1.8-7.7) 09/24/25 15:14 Lymph # (Auto) 1.6 10^3/uL (0.8-4.8) 09/24/25 15:14 [place] # (Auto) 0.4 10^3/uL (0.2-0.9) 09/24/25 15:14 Eos # (Auto) 0.0 10^3/uL (0.0-0.8) 09/24/25 15:14 Baso # (Auto) 0.1 10^3/uL (0.0-0.1) 09/24/25 15:14 Nucleated RBC % (auto) 0 % 09/24/25 15:14 Nucleated RBCs # 0.0 /100WBC 09/24/25 15:14 Sodium 138 mmol/L (136-145) 09/24/25 15:14 Potassium 4.6 mmol/L (3.5-5.1) 09/24/25 15:14 Chloride 105 mmol/L (98-107) 09/24/25 15:14 Carbon Dioxide 22 mmol/L (22-29) 09/24/25 15:14 Anion Gap 15.6 (5-19) 09/24/25 15:14 BUN 14 mg/dL (6-20) 09/24/25 15:14 Creatinine 0.7 mg/dL (0.7-1.2) 09/24/25 15:14 GFR Calculation 119.4 mL/min (90-130) 09/24/25 15:14 Glucose 100 mg/dL (65-115) 09/24/25 15:14 Calculated Osmolality 287 mOsm/kg (285-295) 09/24/25 15:14 Calcium 9.4 mg/dL (8.5-10.5) 09/24/25 15:14 Urine Color Yellow (Yellow) 09/24/25 14:54 Urine Appearance Clear (CLEAR) 09/24/25 14:54 Urine pH 5.0 (5-7) 09/24/25 14:54 Ur Specific [place] 1.019 (1.005-1.030) 09/24/25 14:54 Urine Protein Negative (Negative) 09/24/25 14:54 Urine Glucose (UA) Negative (Normal) 09/24/25 14:54 Urine Ketones Negative (Negative) 09/24/25 14:54 Urine Blood 1+ (Negative) A 09/24/25 14:54 Urine Nitrate Negative (Negative) 09/24/25 14:54 Urine Bilirubin Negative (Negative) 09/24/25 14:54 Urine Urobilinogen 0.2 mg/dL (Negative) 09/24/25 14:54 Ur Leukocyte Esterase Negative (Negative) 09/24/25 14:54 Urine RBC 3-5 /hpf (0-2) 09/24/25 14:54 Urine WBC 0-5 /hpf (0-5) 09/24/25 14:54 Ur Squamous Epith Cells 0-5 /hpf (0-5) 09/24/25 14:54 Amorphous Sediment Not Reportable 09/24/25 14:54 Urine Bacteria None seen /hpf (NONE) 09/24/25 14:54 Hyaline Casts 0.40 /lpf 09/24/25 14:54 All radiology interpretation(s) finalized by discharge Discharge Plan Discharge Patient Disposition: Home Clinical Impression: Left nephrolithiasis Condition: Stable Prescriptions: No Action clotrimazole-betamethasone 1-0.05 % cream 1 applic topical BID 28 Days Qty: 45 3RF Jardiance 10 mg tablet 10 mg PO DAILY oxycodone-acetaminophen 7.5-325 mg tablet 1 tab PO Q4H MDD 4 per day PRN (Reason: pain) hydrocodone-acetaminophen 5-325 mg tablet 1 tab PO Q6H PRN (Reason: pain) Qty: 20 0RF polyethylene glycol 3350 [Miralax] 17 gram/dose powder 17 g PO DAILY Qty: 510 0RF Rx Instructions: Take 1 scoop daily while taking pain medications. ondansetron 8 mg tablet,disintegrating 4 - 8 mg PO Q6H PRN (Reason: Nausea And Vomiting) tamsulosin 0.4 mg capsule 0.4 mg PO DAILY varenicline tartrate 1 mg tablet 1 mg PO BID Discharge Orders: Discharge ED (Routine); Ordered 09/24/25 Ordered By: Clarence Scott Referrals: Mahad Silvestre MD [Primary Care Provider, [facility]] Discharge Diet: Usual diet Discharge Activity: Resume usual activity Patient Instructions: Opioid Safety, Pain Management, Patient Portal & Summer Instructions Activity Restrictions/Additional Instructions: Thank you for choosing [facility] for your healthcare needs today. It is very important that you follow up as instructed or that you return to the Emergency Department should you have concerns or if your condition changes or worsens in any way. Emergency department visits are focused on emergent conditions, in some cases you may require further evaluation on an outpatient basis. You were seen in the emergency room about the left kidney stone that has been being tracked last several months. There is signs that it has recently passed it is no longer in the ureter. Continue taking the tamsulosin and follow-up with the urologist as scheduled tomorrow. We electronically sent today's CT to [place], we also gave you a disc copy in case her difficulties getting it transferred to [place]. (Please note that included in your discharge packet is information concerning opioid safety and pain management. This information is given to all patients were discharged from the ER regardless of their discharge diagnosis or the medicines they usually take or are prescribed.) Print Language: French Coding Level of Care Code ED Registered Phlebotomist Part Time for Ludwig Waters
--- OUTSIDE RECORDS SUMMARY | 2025-09-24 14:32 | XMS_ITS | Patient Health Record ---
Author Organization [facility] Address [address] [place] [address] Care Team Providers Care Ferry Terminal Supervisor Name Role Phone Mahad Silvestre MD Primary Care Provider Unavaila Jas Argueta Unavailable [phone] Nidhi Quiroz Unavailable [phone] Allergies Allergen (clinical drug ingredient) Drug/Non Drug Allergy documented on EMR Reaction Allergy Type Onset Date Status Substance with penicillin structure and antibacterial mechanism of action (substance) Penicillins hives Drug Allergy Active Substance with sulfonamide structure and antibacterial mechanism of action (substance) Sulfa Antibiotics hives Drug Allergy Active Results Component Value Reference Range Flag Notes Urine Drug Screen (cup read) - 82191 Reviewed date:08/06/2025 03:30:20 PM Interpretation:negative all Performing Lab: Notes/Report: negative all Urine Confirmation Panel (in strument) - [id number] Reviewed date:08/12/2025 12:35:27 PM Interpretation: Performing Lab: [...] Referring Provider Last Name Nirmala Referring Provider [facility] Referred Organization [facility] Referred Provider Nura Mota Referred Address [address],[place],[address],[place] Referred Provider Specialty Pain Medicin e General Notes Keshia Lizarraga 05:53:20 PM CDT > mailing npp, scheduled pt Referral Priority Routine Medications Medication SIG (Take, Route, Frequency, Duration) Notes Start Date End Date Status traMADol HCl 50 MG Tablet 1 tablet as needed Orally every 6 hours Not-Taking oxyCODONE-Acetaminophen 7.5-325 MG Tablet 1 tablet as needed Orally every 6 hrs Not-Taking Social History Sex Assigned At : Social History Observation Description Sex Assigned At Male Social History Additional Details Category Social Info Options Details Miscellaneous: Sexually active: yes Sexual abuse: no Problems Problem Type SNOMED Code ICD Code Onset Dates Problem Status W/U Status Risk Notes Problem Chronic pain syndrome (868068603) Chronic pain syndrome (G89.4) Active confirmed Problem Lumbosacral spondylosis without myelopathy (48782176) Other spondylosis with radiculopathy, lumbar region (M47.26) Active confirmed Problem Neurogenic claudication (593894313) Spinal stenosis of lumbar region with neurogenic claudication (M48.062) Active confirmed Problem Lumbar radiculopathy (081132105) Lumbar radiculopathy (M54.16) Active confirmed Problem Lumbar spondylosis (069262718) Lumbar spondylosis (M47.816) Active confirmed Problem Chronic pain (91209466) Chronic pain (G89.29) Active confirmed Problem Abnormal gait (12053727) Abnormality of gait and mobility (R26.9) Active confirmed Vital Signs Height-cm 175.26 cm 09/03/2025 Weight-kg 105.23 kg 09/03/2025 Height 69 in 09/03/2025 Weight 232 lbs 09/03/2025 BMI 34.26 kg/m2 09/03/2025 Encounters Encounter Location Date Provider Diagnosis [facility] [place] [address] [place] [id number] 09/03/2025 Jas Pinon Chronic pain syndrom e G89.4 ; group home (current) use of opiate analgesic Z79.891 ; Other spondylosis with radiculopathy, lumbar region M47.26 ; Spinal stenosis of lumbar region with neurogenic claudication M48.062 and Abnormality of gait and mobility R26.9 [facility] [place] [address] [place] [address] 08/06/2025 Jas Randolpht Chronic pain syndrom e G89.4 ; Abnormality of gait and mobility R26.9 ; group home (current) use of opiate analgesic Z79.891 and Other spondylosis with radiculopathy, lumbar region M47.26 [facility] [address] [place] [address] 07/03/2025 Jas Littlejohnfft Chronic pain syndrom e G89.4 ; Lumbar radiculopathy M54.16 ; Lumbar spondylosis M47.816 ; Abnormality of gait and mobility R26.9 and 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 08/06/2025 Abnormality of gait and mobility (ICD-10 - R26.9) 09/03/2025 Chronic pain syndrome (ICD-10 - G89.4) I had a nice visit with the patient regarding his chronic pain issues. He completed his lumbar MRI, so we reviewed it. It showed significant stenosis at the L4-5 level and some facet hypertrophy as well. We discussed treatment options, specifically LESI. He is interested in a LESI. We will get this scheduled here in the near future. He continues to report no significant benefit from the pain medication, so no prescription was provided today. We will follow up thereafter and proceed accordingly. 09/03/2025 group home (current) use of opiate analgesic (ICD-10 - Z79.891) 09/03/2025 Other spondylosis with radiculopathy, lumbar region (ICD-10 - M47.26) RECOMMEND DIAGNOSTIC LUMBAR EPIDURAL STEROID INJECTION, levels L4-5 The patient has radicular pain as described above, which has failed conservative treatment including activity modifications, physical/home exercise therapy, NSAIDs, rest and OTC medications. The goal of epidural steroid injections is to reduce pain and inflammation, restoring range of motion and, thereby, facilitating progress in more active treatment programs, and hopefully avoiding surgery. Success of LETITIA will be gauged by at least 50% overall improvement in function and reduction in pain. The procedure and risks were discussed with the patient including but not limited to infection, bleeding, neurological complications, side effects from medications, no change in pain, worsening of pain, or even . We also discussed conservative options, surgical options, and medical management with patient as well. The patient indicates understanding and wishes to proceed with the recommended treatment approach. The patient was given written information about the procedure and all questions were answered. 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 Jas Pinon. Sussy, Dr. Jas Pinon, personally performed the services described in this documentation, as scribed by Graciela Peterson, and it is both accurate and complete. 08/06/2025 Graciela Denis, am scribing for Dr. Jas Pinon. I, Dr. Jas Pinon, personally performed the services described in this documentation, as scribed by Graciela Peterson, and it is both accurate and complete. 09/03/2025 Other I, Graciela Peterson, am scribing for Dr. Jas Pinon. I, Dr. Jas Pinon, personally performed the services described in this documentation, as scribed by Graciela Peterson, and it is both accurate and complete. Plan Of Treatment Future Test Test Name Order Date Epidural, Lumbar/Sacral (Caudal), w/ tay ging guidance - [id number] 09/04/2025 Next Appt Details Provider Name:Jas Pinon, 09/30/2025 03:10:00 PM, [address] [place], [address], Insurance Providers Payer Name Payer Address Payer Phone Subscriber Number Group Number Insured Name Patient Relationship to Insured Coverage Start Date Coverage End Date [place] Medicaid [address] [place] [address] [id number] Elvis Saleh Self - patient is the insured Medical (General) History Medical History History ICD Code Diabetes seizures Depression Arthritis kidney infection kidney stones Swelling of multiple joints Thyroid disease Surgical History Surgery Date(Month/Year) testical kidney stone
--- OUTSIDE RECORDS SUMMARY | 2025-09-24 14:33 | XMS_ITS | Clinical Summary ---
Author Organization [facility] Address [address] [facility] [address] [place] [address] Care Team Providers Care Grants Assistant Name Role Phone Unavailable Primary Care Provider [...] 1,000 Units by mouth daily. Active multivit,calc,m ht-TC-Y4-lycop (One-A-Day Men's Complete) 240 mcg-30 mcg- 300 mcg Tablet Take 1 Tablet by mouth daily. Active naloxone (Narcan) 4 mg/spray [place], Non-Aerosol Administer 4 mg in one nostril [...] thereafter. 200 Tablet 3 09/21/2024 1:00 PM SALAD MAKER 4 Active glimepiride (AMARYL) 2 mg tablet Take 1 Tablet (2 mg) by mouth daily with breakfast. DIABETES 100 Tablet 3 09/21/2024 1:00 PM SALAD MAKER 4 Active Active Problems Problem Noted Date Diagnosed Date Obesity 09/19/2024 H/O degenerative disc disease 09/19/2024 Chronic pain disorder 09/19/2024 Fibromyalgia 09/19/2024 Type 2 diabetes mellitus wit hout complication, without long-term current use of insulin 09/19/2024 Essential hypertension 09/19/2024 Obesity (BMI 30.0-34.9) 09/19/2024 Scrotal abscess 09/18/2024 Encounters Date Type Department Care Team Description 09/16/2025 External Device Data [facility] ABSTRACTION Provider, Abstract 09/16/2025 External Device Data [facility]CTION Provider, Abstract 09/10/2025 External Device Data [facility] Provider, Abstract 09/10/2025 External Device Data [facility] Provider, Abstract 09/09/2025 External Device Data [facility] Provider, Abstract 09/09/2025 External Device Data [facility]CTION Provider, Abstract 09/02/2025 Abstract [facility] [address] [place] [address] Simon Dickinson MD 08/19/2025 External Device Data [facility]STRACTION Provider, Abstract 07/29/2025 External Device Data [facility]STRACTION Provider, [...] on file Legal Sex Male 4:33 AM SALAD MAKER Gender Identity Not on file Sexual Orientation Not on file Last Filed Vital Signs Vital Sign Reading Time Taken Comments Blood Pressure 147/88 09/21/2024 11:15 AM SALAD MAKER Pulse 80 09/21/2024 11:15 AM SALAD MAKER Temperature 36.3 C (97.4 F) 09/21/2024 11:15 AM SALAD MAKER Respiratory Rate 18 09/21/2024 11:15 AM SALAD MAKER Oxygen Saturation 98% 09/21/2024 11:15 AM SALAD MAKER Inhaled Oxygen Concentration - - Weight 108.9 kg (240 lb) 09/18/2024 10:39 PM SALAD MAKER Height 180.3 cm (5' 11 ) 09/18/2024 10:39 PM SALAD MAKER Body Mass Index 33.47 09/18/2024 10:39 PM SALAD MAKER Plan of Treatment Health Maintenance Due Date Last Done Comments DIABETES ANNUAL FOOT EXAM 1992 DIABETES ANNUAL RETINAL EXAM 1992 DIABETES MICROALBUMIN ANNUAL SCREEN 1992 LDL CHOLESTEROL ANNUAL 1992 DTAP/TDAP/TD VACCINES (1 - Tdap) 1993 HEPATITIS B VACCINES (1 of 3 - 19+ 3-dose series) 09/14 Preventative Visit-Managed Medicaid 1993 COLORECTAL SCREENING 2019 Colorectal Cancer Screening 2019 FIT-DNA Q 3 years 2019 FIT/FOBT Q 1 year 2019 Flex Sig/CT Colonography Q 5 years 2019 ZOSTER VACCINE (1 of 2) 2024 DIABETES HBA1C Q 6 MONTHS 03/19/2025 09/19/2024 INFLUENZA VACCINE (#1) 2025 Procedures Procedure Name Priority Date/Time Associated Diagnosis Comments HEMOGLOBIN A1C Routine 09/19/2024 6:26 AM SALAD MAKER from Last 3 Months or Most Recently Relevant to Health Maintenance Results * (ABNORMAL) HEMOGLOBIN A1C (09/19/2024 6:26 AM SALAD MAKER) HEMOGLOBIN A1C 12.0(H) <=5.6 % 09/20/2024 11:05 AM SALAD MAKER [facility] [employer] [facility] EST. AVG GLUCOSE, A1C 298 mg/dL 09/20/2024 11:05 AM [facility] Blood Venipuncture / Unknown 09/19/2024 6:26 AM SALAD MAKER 09/19/2024 6:50 AM SALAD MAKER Narrative [facility] [employer] [facility] - 09/20/2024 11:05 AM SALAD MAKER HGB A1C INTERPRETATION NORMAL: <5.7% PRE-DIABETES: 5.7 - 6.4% DIABETES: 6.5% OR GREATER us Delvin Smalls MD CHEMISTRY ORDERABLES Final Result Performing Organization Address City/State/[facility] Co de Phone Number [facility] CLIA # [id number] [address] [address] from Last 3 Months or Most Recently Relevant to Health Maintenance Insurance [place] [employer] Medicaid Advance Directives For more information, please contact: [phone] * Full Code (Latest Code Status on File) Date Activated Date Inactivated Comments 09/18/2024 8:47 PM 09/21/2024 3:04 PM
--- OUTSIDE RECORDS SUMMARY | 2025-09-24 14:33 | XMS_ITS | Encounter Summary ---
Author Organization [facility] Address [address] [place] [address] Care Team Providers Care Commercial Energy Auditor Name Role Phone Unavailable Primary Care Provider Unavailabl e Encounter Details Date Type Department Care Team (Late st Contact Info) Description 09/16/2025 External Device Data [facility] [...] on file Legal Sex Male 4:33 AM DIRECTOR BIOSTATISTICS Gender Identity Not on file Sexual Orientation Not on file documented as of this encounter Plan of Treatment Not on file documented as of this encounter Visit Diagnoses Not on filedocumented in this encounter
[2025-09-24 14:36] VITALS: BP 131/76; PULSE 83; RESP 16; TEMP 36.8; O2SAT 98
[2025-09-24 14:38] VITALS: BP 124/76; PULSE 88; O2SAT 98
--- NOTE | 2025-09-24 14:38 | CT_ITS ---
WS: [id number] CT ABDOMEN AND PELVIS NONCONTRAST HISTORY: Left nephrolithiasis TECHNIQUE: Imaging performed through the abdomen and pelvis. Coronal and sagittal reformats are submitted. All CT scans at [facility] use at least one of these dose optimization techniques: automated exposure control; mA and/or kV adjustment per patient size (includes targeted exams where dose is matched to clinical indication); or iterative reconstruction. DLP: 926.09 mGy.cm COMPARISON: 08/14/2025 Lower thorax: Lung bases are clear. Visualized heart is normal. No hiatal hernia. Liver: Normal size liver. No mass or bile duct dilatation. Gallbladder: Well-distended gallbladder with stones. No adjacent inflammation. Pancreas: Normal size and attenuation. Normal pancreatic duct. No pancreatitis or mass. Spleen: Spleen is measuring top normal size at 13.6 cm. Similar to 08/14/2025. Adrenal glands: Normal. No mass. Right kidney: Normal size kidney. No renal or ureteral calcifications or obstruction. Left kidney: Normal size kidney. Very minimal perinephric stranding. Decrease in size of the mild hydronephrosis. LEFT ureter as decreased in size since 08/14/2025. Previously described distal LEFT ureteral calcification has moved distally and is now within the urinary bladder. This calcification measures 5.2 mm. There is mild periureteral stranding around the distal ureter which has progressed since 08/14/2025 suggesting recent movement of the ureteral calcification. Aorta: Normal abdominal aorta, no aneurysm or atherosclerosis. No free fluid, intraperitoneal air or significant lymphadenopathy. GI tract: No GI tract obstruction. No colitis. Abdominal wall: Small umbilical hernia contains fat only. Pelvis: Urinary bladder is minimally distended. There is a calcification in the LEFT urinary bladder. This calcification was recently described in the distal LEFT ureter. Osseous structures: Unremarkable. CT/CT kidney stone [id number] IMPRESSION: 1. Significant improvement in the previously described LEFT hydroureteronephro sis as described on 08/14/2025. 2. Distal LEFT ureter calcification is now in the LEFT urinary bladder. The di stal LEFT ureter now with more inflammatory changes compared to the prior study suggesting recent movement of the stone. 3. Negative RIGHT kidney. No hydronephrosis. 4. Cholelithiasis without acute cholecystitis.
[2025-09-24 15:06] LABS: Glucose Urine UA Negative (Normal); Nitrate Urine Negative (Negative); Specific Gravity, Urine 1.019 (1.005-1.030)
[2025-09-24 15:08] LABS: Add Urine Microscopic? YES
[2025-09-24 15:32] LABS: Hematocrit 51.6 % (37-53); Hemoglobin 18.20 g/dL (11.27-16.99); Mean Corpuscular HGB Conc 35.3 g/dL (30-55); Mean Corpuscular Hemoglobin 32.5 pg (27-33); Mean Corpuscular Volume 92.1 fl (82-101); Nucleated Red Blood Cells % 0 %; Platelet Count 144 10^3/cmm (157-399); Red Blood Count 5.60 10^6/uL (3.85-5.65); White Blood Count 7.29 10^3/uL (3.29-11.43)
[2025-09-24 15:53] LABS: Anion Gap 15.6 (5-19); Blood Urea Nitrogen 14 mg/dL (6-20); Calcium 9.4 mg/dL (8.5-10.5); Carbon Dioxide 22 mmol/L (22-29); Chloride 105 mmol/L (98-107); Glucose 100 mg/dL (65-115); Osmolality Calculated 287 mOsm/kg (285-295); Potassium 4.6 mmol/L (3.5-5.1); Sodium 138 mmol/L (136-145)
--- NOTE | 2025-09-24 15:54 | PC.PHAR ---
Pt states he does not take any medications at this time. I intentionally left the most recent few medications on his profile with last fill dates and day supply entered.
[2025-09-24 16:10] VITALS: BP 123/80; PULSE 82; RESP 16; O2SAT 95
== END 2025-09-24 16:11 | disposition home or self-care (01) ==
PROVIDERS: Emergency Provider Family Medicine; PCP Family Medicine
DX: N20.0 Calculus of kidney (principal); Z87.442 Personal history of urinary calculi; F17.210 Nicotine dependence, cigarettes, uncomplicated
CPT/HCPCS: 36415; 74176; 80048; 81001; 85025; 99284

== ENCOUNTER 2025-10-01 16:45 | Outpatient (CLI) | payer MEDICAID, SELFPAY ==
--- NOTE | 2025-10-01 16:49 | XR_ITS ---
WS: [id number] XR wrist LT min 3V* [id number] REASON FOR EXAM: PAIN IN LEFT WRIST FINDINGS: No fracture or bone lesion. Joint spaces of the wrist are intact and well preserved. Normal carpal bone alignment. XR/XR wrist LT min 3V* [id number] IMPRESSION: No significant bone or joint abnormality.
== END 2025-10-01 16:46 | disposition home or self-care (01) ==
LOC: RAD 16:45
PROVIDERS: PCP Family Medicine; Visit Provider Family Medicine
DX: M25.532 Pain in left wrist (principal)
CPT/HCPCS: 73110